=== PATIENT | male | born 1940 | race Caucasian/White ===

== ENCOUNTER 2016-11-28 06:35 | Emergency (ER) | payer MEDICARE ==
[2016-11-28 07:00] LABS: Hematocrit 42.7 % (42.0-52.0); Hemoglobin 13.6 gm/dL (13.5-18.0); Mean Corpuscular Hemoglobin 27.7 pg (27-31); Mean Corpuscular Hgb Conc 31.9 g/dl (32-36); Mean Platelet Volume 10.6 fl (6.0-9.5); Neutrophil # 11.8 K/mm3 (1.3-6.0); Neutrophil % 82.4 % (42-75.0); Platelet Count 196 K/mm3 (150-450); Red Blood Count 4.91 M/mm3 (4.7-6.0); White Blood Count 14.4 K/mm3 (4.0-10.5)
--- NOTE | 2016-11-28 07:00 | ERNOTE ---
<Edwar Escamilla - Last Filed: 11/28/16 07:53> Abdominal HPI - General Time Seen by Provider: 11/28/16 06:44 Source: patient Exam Limitations: no limitations - Immun/Allergies/Home Medications Allergies/Adverse Reactions: Allergies heparin Adverse Reaction (Verified 11/28/16 06:56) Home Medications: HOME MEDICATIONS Apixaban [Eliquis] 5 mg PO BID 07/08/15 [Last Taken Unknown] Atorvastatin Calcium 40 mg PO HS 07/08/15 [Last Taken Unknown] Escitalopram Oxalate [Lexapro] 10 mg PO DAILY 07/08/15 [Last Taken Unknown] Finasteride [Proscar] 5 mg PO DAILY 07/08/15 [Last Taken Unknown] Furosemide [Lasix] 40 mg PO BID 07/08/15 [Last Taken Unknown] Gabapentin [Neurontin] 300 mg PO BID 07/08/15 [Last Taken Unknown] Insulin Aspart [Novolog] See Protocol SQ TID PRN 07/08/15 [Last Taken Unknown] Insulin Glargine,Hum.rec.anlog [Lantus] 8 units SC DAILY 07/08/15 [Last Taken Unknown] Melatonin 2 mg PO HS 07/08/15 [Last Taken Unknown] Metoprolol Succinate [Toprol Xl] 400 mg PO DAILY 07/08/15 [Last Taken Unknown] Multivit-Min/FA/Lycopene/Lut [Centrum Silver Tablet] 1 each PO DAILY 07/08/15 [ Last Taken Unknown] Omeprazole [Prilosec] 20 mg PO DAILY 07/08/15 [Last Taken Unknown] Polyethylene Glycol 3350 [Miralax] 17 gm PO DAILY 07/08/15 [Last Taken Unknown] Potassium Chloride [K-Tab ER] 10 meq PO BID 07/08/15 [Last Taken Unknown] Tamsulosin HCl [Flomax] 0.4 mg PO DAILY@1800 07/08/15 [Last Taken Unknown] Ferrous Sulfate 325 mg PO DAILY 11/28/16 [Last Taken Unknown] Fluticasone/Vilanterol [Breo Ellipta 200-25 Mcg INH] 1 each IH DAILY 11/28/16 [ Last Taken Unknown] traMADol HCL [Ultram] 50 mg PO QID PRN #20 tablet 11/28/16 [Last Taken Unknown] - History of Present Illness Narrative: Pt states he began to have abdominal discomfort last night while eating dinner. At 02:30 he was awakened with chills and increasing abdominal discomfort. He took tylenol and was somewhat improved. Staff at the [facility] states he had temp of 101.7 at 05:45 and was given tylenol again. Pt reports nausea without vomiting. Believes he is somewhat better right now Timing: unsure Quality: moderate Activities at Onset: other - eating Modifying Factors - (Improves): Present: analgesics Associated Symptoms: Present: fever/chills, nausea Review of Systems - Review of Systems Constitutional: Present: See HPI, fever, chills EYE: Present: no symptoms reported ENT: Absent: nose congestion, sore throat Respiratory: Absent: shortness of breath, cough Cardiology: Absent: chest pain, palpitations Gastrointestinal/Abdominal: Present: See HPI. Absent: diarrhea, constipation Genitourinary: Present: no symptoms reported Musculoskeletal: Present: no symptoms reported Skin: Present: no symptoms reported Neurological: Present: no symptoms reported Endocrine: Present: no symptoms reported Hematologic/Lymphatic: Present: no symptoms reported Psych: Present: no symptoms reported - Patient's Past Medical History Patient History - Medical: Diabetes Type 2 Insulin Dependent Patient History - Cardiac/Respiratory: Hypertension, Hyperlipidemia, Myocardial Infarction Patient History - Cancer: Prostate Patient History - Surgical Procedures: Amputation, T & A Patient History - Other: None - Family History Mother Family History - Medical: Father Family History - Medical: - Social History Living Situations: care home Abuse History: No History of abuse Psych History: No pertinent hx Alcohol Use: none Drug Use: none Physical Exam - Physical Exam General Appearance: Present: wd/wn, alert, no apparent distress Eye Exam: Normal inspection: bilateral Ears, Nose, Throat: Present: normal ENT inspection Neck: Present: normal inspection, nontender Respiratory: Present: no respiratory distress, normal breath sounds, no accessory muscle use, chest nontender, lungs clear Cardiovascular/Chest: Present: regular rate, rhythm, no murmur Gastrointestinal/Abdominal: Present: normal bowel sounds, nondistended, soft, tenderness - mild diffuse Extremity Exam: Present: other - 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 Some dry crusted areas on the fore edge of the foot Neurological Exam: Present: alert, oriented, normal mood/affect, no motor/ sensory deficits Skin Exam: Present: normal color, warm/dry Lymphatic Exam: Present: no adenopathy ED Progress - Results and Orders Patient's Lab Results:: I have reviewed the patient's lab results. Results and Orders: Laboratory Tests 11/28/16 11/28/16 06:55 06:55 WBC 14.4 H Hgb 13.6 Hct 42.7 Plt Count 196 Neutrophils % 82.4 H Sodium 142 Potassium 3.7 Chloride 103 Carbon Dioxide 30.4 Anion Gap 12.3 BUN 12 Creatinine 0.84 Est GFR (Non-Af Amer) 94 D Random Glucose 129 H Calcium 8.9 Calcium Adj for Albumin 9.3 Total Bilirubin 1.6 H AST 13 ALT 14 L Alkaline Phosphatase 65 Total Protein 7.5 Albumin 3.1 L - Transfer of Care Physician Sign Out: Edwar Escamilla Receiving Physician: Ashutosh Peck Pending Results: CT/MRI results Expected Disposition: Discharge Departure - Departure Clinical Impression: Cholecystitis Abdominal pain Qualifiers: Abdominal location: right upper quadrant Qualified Code(s): R10.11 - Right upper quadrant pain Cholelithiasis Qualifiers: Cholelithiasis location: gallbladder Cholecystitis presence: with cholecystitis Cholecystitis acuity: acute Biliary obstruction: without biliary obstruction Qualified Code(s): K80.00 - Calculus of gallbladder with acute cholecystitis without obstruction Disposition: [facility] Instructions: Cholecystitis, [id number], Cholelithiasis Prescriptions: traMADol HCL [Ultram] 50 mg PO QID PRN #20 tablet PRN Reason: Moderate Pain <Ashutosh Peck - Last Filed: 11/28/16 10:37> Abdominal HPI - Immun/Allergies/Home Medications Immunizatons: IMMUNIZATION HX Immunizations Up to Date Yes History of Influenza Vaccine Yes Hx Pneumococcal Vaccination Yes ED Progress - Vital Signs Patient's Vital Signs:: I have reviewed the patient's vital signs. Vital Signs: Vital Signs 11/28/16 11/28/16 11/28/16 06:40 07:14 07:24 Temperature 37.8 C H 37.4 C Pulse Rate 86 87 Respiratory 16 16 Rate Blood Pressure 154/64 111/65 O2 Sat by Pulse 96 Oximetry 11/28/16 11/28/16 11/28/16 07:55 08:23 08:57 Temperature 37.4 C 37.0 C Pulse Rate 83 86 79 Respiratory 16 16 16 Rate Blood Pressure 101/53 100/47 102/49 O2 Sat by Pulse 96 96 97 Oximetry 11/28/16 09:58 Temperature Pulse Rate 75 Respiratory 16 Rate Blood Pressure 115/55 O2 Sat by Pulse 97 Oximetry - Progress/Reassessment Progress:: Improved Plan - Plan Plan: Patient is currently pain-free while in the emergency department. Upon reviewing the CT scan and the presence of Cholelithiasis with possible cholecystitis, I spoke with Dr. Regan in regarding this patient. Dr. Regan and agrees that this is a very complex patient would require require a lot of preop screening and testing prior to even considering a cholecystectomy here at [facility]. Dr. Regan and recommends that patient be referred back to Dr. Elias Haider for further evaluation and treatment at the appropriate place and appropriate time for possible surgery. Further discussed the case with Dr. Elias Haider and he is going to see the patient tomorrow at care home rounds and determine if anything further needs to be done. Patient is amenable to this approach and will be returned to the care home with adequate pain medicines while while is here should have another attack.
[2016-11-28] MEDS ORDERED: DIATRIZOATE MEGLU/DIATRIZO SOD 30 ML BTL ONE (07:06)
[2016-11-28] MEDS ORDERED: DIATRIZOATE MEGLU/DIATRIZO SOD 30 ML BTL PO ONE (07:12)
[2016-11-28 07:14] LABS: Albumin * 3.1 gm/dl (3.4-5.0); Anion Gap 12.3 mmol/L (6.8-13.8); BUN/Creatinine Ratio 14.3 (9.0-21.6); Bilirubin, Total 1.6 mg/dL (0.0-1.1); Ca. Corrected For Albumin 9.3 mg/dL (8.4-10.2); Calcium * 8.9 mg/dL (7.9-10.9); Carbon Dioxide 30.4 mmol/L (24-32.6); Potassium 3.7 mmol/L (3.4-4.6); Total Protein 7.5 gm/dL (6.2-8.2)
--- OUTSIDE RECORDS SUMMARY | 2016-11-28 07:35 | XMS REPORT | Continuity of Care Document ---
:1940 Author Organization [employer] [place] [address] Care Team Providers Name Role Phone Prashanth Acharya Primary Care Provider [phone] Source Comments This disclosure is being made pursuant to the [employer] program and maynot contain all information available regarding this patient.[employer] Active Allergies and Adverse Reactions Allergen Noted Date Severity Reactions Comments Adhesive Tape 01/15/2015 Low Rash [place] 01/14/15 Heparin 01/15/2015 Other (See Comments) [place] 01/14/15 "killed small arteries" Current Medications Be aware that medications may not be up to date as of this document. Alwaysverify current medications with the patient. Prescription Sig. Disp. Refills Start Date End Date Status HYDROcodone-acetaminoph Take 1 tablet by Active en (NORCO) 7.5-325 MG mouth every 4 (four) per tablet hours as needed for Pain. Indications: Moderate to Moderately Severe Pain aspirin 81 MG EC tablet Take 81 mg by mouth Active daily. atorvastatin (LIPITOR) Take 40 mg by mouth Active 40 MG tablet nightly. finasteride (PROSCAR) 5 Take 5 mg by mouth Active MG tablet daily. gabapentin (NEURONTIN) Take 600 mg by mouth Active 300 MG capsule 3 (three) times daily. insulin glargine Inject 80 Units into Active (LANTUS SOLOSTAR) 100 the skin nightly. UNIT/ML SOPN injection - pen metoprolol succinate Take 50 mg by mouth Active (TOPROL-XL) 50 MG 24 hr daily. tablet omeprazole 20 MG tablet Take 20 mg by mouth Active every morning before breakfast. oxyCODONE (ROXICODONE) Take 5 mg by mouth Active 5 MG immediate release every 6 (six) hours tablet as needed for Pain. potassium chloride SA Take 40 mEq by mouth Active (K-DUR,KLOR-CON) 20 MEQ 2 (two) times daily. tablet tamsulosin HCl (FLOMAX) Take 0.4 mg by mouth Active 0.4 MG capsule daily. warfarin (COUMADIN) 5 Take 7.5 mg by mouth Active MG tablet daily. 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 Most Recent Encounters Date Type Specialty Providers Description 09/07/2016 Data Import Social History Tobacco Use Types Packs/Day Years Used Date Former Smoker Smokeless Tobacco: Never Used Alcohol Use Drinks/Week oz/Week Comments No Last Filed Vital Signs Vital Sign Reading Time Taken Blood Pressure 134/76 03/23/2015 1:58 PM CDT Pulse 100 03/23/2015 1:58 PM CDT Temperature - - Respiratory Rate 20 03/23/2015 1:58 PM CDT Height 1.803 m (5' 11") 03/23/2015 1:58 PM CDT Weight 108.863 kg (240 lb) 03/23/2015 1:58 PM CDT Body Mass Index 33.49 03/23/2015 1:58 PM CDT Oxygen Saturation - - Plan of Care Health Maintenance Due Date Last Done Comments Lab-Lipids 1940 LAB-HgA1C 1944 Eye (Ophthalmology) Exam 1949 Foot Exam 1949 Lab-Urine Microalbumin 1949 Tetanus/Pertussis (1 - Tdap) 1958 Well Adult Visit 1989 Zoster Vaccine 60+ 1999 Pneumococcal Low/Medium Risk 65+ (1 of 2 - PCV13) 2004 Influenza Immunization (#1) 2016 Results from Last 3 Months Not on file
[2016-11-28 10:43] VITALS: BP 115/55
== END 2016-11-28 12:14 ==
LOC: ER 06:35
DX: K80.00 Calculus of gallbladder with acute cholecystitis without obstruction (principal); R10.11 Right upper quadrant pain; Z85.46 Personal history of malignant neoplasm of prostate; I10 Essential (primary) hypertension; E11.9 Type 2 diabetes mellitus without complications; Z79.4 Long term (current) use of insulin

== ENCOUNTER 2016-11-30 21:26 | Emergency (ER) | payer MEDICARE ==
[2016-11-30 21:45] LABS: Hematocrit 42.3 % (42.0-52.0); Hemoglobin 13.6 gm/dL (13.5-18.0); Mean Cell Volume 85.8 fl (78-100); Mean Corpuscular Hemoglobin 27.6 pg (27-31); Mean Corpuscular Hgb Conc 32.2 g/dl (32-36); Mean Platelet Volume 10.1 fl (6.0-9.5); Neutrophil # 9.7 K/mm3 (1.3-6.0); Neutrophil % 81.5 % (42-75.0); Platelet Count 190 K/mm3 (150-450); Red Blood Count 4.93 M/mm3 (4.7-6.0); Red Cell Distribution Width 17.1 % (11.5-14.0); White Blood Count 11.9 K/mm3 (4.0-10.5)
--- OUTSIDE RECORDS SUMMARY | 2016-11-30 21:45 | XMS REPORT | Continuity of Care Document ---
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
[2016-11-30 22:00] LABS: Albumin * 2.9 gm/dl (3.4-5.0); Anion Gap 12.4 mmol/L (6.8-13.8); BUN/Creatinine Ratio 19.7 (9.0-21.6); Bilirubin, Total 3.6 mg/dL (0.0-1.1); Ca. Corrected For Albumin 9.1 mg/dL (8.4-10.2); Calcium * 8.5 mg/dL (7.9-10.9); Carbon Dioxide 27.6 mmol/L (24-32.6); Total Protein 7.7 gm/dL (6.2-8.2)
[2016-12-01] MEDS ORDERED: metroNIDAZOLE/SODIUM CHLORIDE 500 MG/100 ML BAG IV SCH (00:15)
[2016-12-01 01:25] LABS: Urine Appearance Slightly Cloudy; Urine Bilirubin 3 mg/dl (NEGATIVE); Urine Blood Negative /ul (NEGATIVE); Urine Color Orange; Urine Ketone 5 mg/dL (NEGATIVE); Urine Protein 15 mg/dL (NEGATIVE); Urine Urobilinogen >=8.0 EU/dl (NORMAL); Urine pH 6.5 pH (5.0-7.0)
[2016-12-01 01:26] LABS: Urine Bacteria 1+; Urine Mucus Moderate - 2+; Urine Nitrite Negative (NEGATIVE); Urine RBC None Seen /hpf (0-5); Urine Renal Epithelial Cell Few - 1+ /hpf; Urine WBC TRACE /hpf (0-5)
[2016-12-01] MEDS ORDERED: HYDROmorphone HCL 1 MG/ML DISP.SYRIN IV ONE (01:58)
[2016-12-01] MEDS ORDERED: ONDANSETRON HCL/PF 2 MG/ML VIAL ONE (02:00)
[2016-12-01] MEDS ORDERED: HYDROmorphone HCL 1 MG/ML DISP.SYRIN ONE (02:00)
--- NOTE | 2016-12-01 02:00 | ERNOTE ---
Abdominal HPI - Narrative Date of Service: 11/30/16 - General Chief Complaint: Abdominal Pain Time Seen by Provider: 11/30/16 21:28 Source: patient Exam Limitations: no limitations - Immun/Allergies/Home Medications Immunizatons: IMMUNIZATION HX Immunizations Up to Date Yes History of Influenza Vaccine Yes Hx Pneumococcal Vaccination Yes Allergies/Adverse Reactions: Allergies heparin Adverse Reaction (Verified 11/28/16 06:56) Home Medications: HOME MEDICATIONS Apixaban [Eliquis] 5 mg PO BID 07/08/15 [Last Taken Unknown] Atorvastatin Calcium 40 mg PO HS 07/08/15 [Last Taken Unknown] Escitalopram Oxalate [Lexapro] 10 mg PO DAILY 07/08/15 [Last Taken Unknown] Finasteride [Proscar] 5 mg PO DAILY 07/08/15 [Last Taken Unknown] Furosemide [Lasix] 40 mg PO BID 07/08/15 [Last Taken Unknown] Gabapentin [Neurontin] 300 mg PO BID 07/08/15 [Last Taken Unknown] Insulin Aspart [Novolog] See Protocol SQ TID PRN 07/08/15 [Last Taken Unknown] Insulin Glargine,Hum.rec.anlog [Lantus] 8 units SC DAILY 07/08/15 [Last Taken Unknown] Melatonin 2 mg PO HS 07/08/15 [Last Taken Unknown] Metoprolol Succinate [Toprol Xl] 400 mg PO DAILY 07/08/15 [Last Taken Unknown] Multivit-Min/FA/Lycopene/Lut [Centrum Silver Tablet] 1 each PO DAILY 07/08/15 [ Last Taken Unknown] Omeprazole [Prilosec] 20 mg PO DAILY 07/08/15 [Last Taken Unknown] Polyethylene Glycol 3350 [Miralax] 17 gm PO DAILY 07/08/15 [Last Taken Unknown] Potassium Chloride [K-Tab ER] 10 meq PO BID 07/08/15 [Last Taken Unknown] Tamsulosin HCl [Flomax] 0.4 mg PO DAILY@1800 07/08/15 [Last Taken Unknown] Ferrous Sulfate 325 mg PO DAILY 11/28/16 [Last Taken Unknown] Fluticasone/Vilanterol [Breo Ellipta 200-25 Mcg INH] 1 each IH DAILY 11/28/16 [ Last Taken Unknown] traMADol HCL [Ultram] 50 mg PO QID PRN #20 tablet 03/07/17 [Last Taken Unknown] - History of Present Illness Narrative: Pt is a [facility] of a [facility] and he is brought in by EMS for right upper quadrant abdominal pain. he was here two days ago and was discharged back to the [facility] but is back because he states his right side hurts. He does have cholelithiasis Timing: getting worse Review of Systems - Review of Systems Constitutional: Present: no symptoms reported EYE: Present: no symptoms reported ENT: Present: no symptoms reported Respiratory: Present: no symptoms reported Cardiology: Present: no symptoms reported Gastrointestinal/Abdominal: Present: See HPI Genitourinary: Present: no symptoms reported Musculoskeletal: Present: no symptoms reported Skin: Present: no symptoms reported - Patient's Past Medical History Patient History - Medical: Diabetes Type 2 Insulin Dependent Patient History - Cardiac/Respiratory: Hypertension, Hyperlipidemia, Myocardial Infarction Patient History - Cancer: Prostate Patient History - Surgical Procedures: Amputation, T & A Patient History - Other: None - Family History Mother Family History - Medical: Father Family History - Medical: - Social History [facility] Situations: [facility] Abuse History: No History of abuse Psych History: No pertinent hx Smoking Status: Never smoker Have you smoked in the past 12 months: No Alcohol Use: none Drug Use: none - Immunizations Immunizations Up to Date: Yes Hx Pneumococcal Vaccination: Yes History of Influenza Vaccine: Yes Physical Exam - Physical Exam General Appearance: Present: wd/wn, alert, no apparent distress - by the time I saw pt he had already been given Fentanyl 75mcg IV by EMS, other - pt does appear mildly icteric Ears, Nose, Throat: Present: normal ENT inspection Neck: Present: normal inspection, nontender Respiratory: Present: no respiratory distress, normal breath sounds Cardiovascular/Chest: Present: no murmur, normal peripheral pulses, irregularly irregular, other Extremity Exam: Present: other - BKA on right side Neurological Exam: Present: alert, normal mood/affect, no motor/sensory deficits Skin Exam: Present: normal color, warm/dry ED Progress - Results and Orders Patient's Lab Results:: I have reviewed the patient's lab results. - Vital Signs Patient's Vital Signs:: I have reviewed the patient's vital signs. Vital Signs: Vital Signs 11/30/16 11/30/16 11/30/16 21:26 21:35 22:05 Temperature 35.7 C L Pulse Rate 88 82 81 Respiratory 16 16 18 Rate Blood Pressure 120/69 120/69 127/74 O2 Sat by Pulse 92 89 L 94 Oximetry 11/30/16 11/30/16 22:35 23:57 Temperature 38.4 C H Pulse Rate 73 78 Respiratory 18 18 Rate Blood Pressure 94/51 112/85 O2 Sat by Pulse 94 93 Oximetry - Progress/Reassessment Chief Complaint: Abdominal Pain Plan - Plan Plan: pt's Bili is elevated at 3.6, his pain in RUQ was initially gone due to Fentanyl 75mcg received in Ambulance, returned and was better with 1mg of Dilaudid. I contacted [facility] and they stated that they do not do ERCP if the pt should need it. I then contacted [facility] in [place] and was told by the data warehouse consultant that " we don't do ERCP's here" . At this time, [facility] was called and Dr. Mendez graciously accepted our patient to their facility for better care. Departure - Departure Clinical Impression: Jaundice Disposition: [facility] Condition: Fair
[2016-12-01] MEDS ORDERED: ONDANSETRON HCL/PF 2 MG/ML VIAL IV ONE (02:01)
[2016-12-01 03:15] LABS: BNP * 2228 pg/mL (5-650); CKMB 0.6 ng/mL (0.0-9.0)
[2016-12-01 03:24] LABS: Troponin I Less than 0.017 ng/ml (0.00-0.10)
[2016-12-01 05:34] VITALS: BP 123/77
== END 2016-12-01 05:40 | disposition short-term general hospital (02) ==
LOC: ER 21:26 → MS 12-01 00:15 → UNDOADMOB 12-01 00:15 → ER 12-01 05:40
DX: R17 Unspecified jaundice (principal); E11.9 Type 2 diabetes mellitus without complications; Z79.4 Long term (current) use of insulin; I10 Essential (primary) hypertension; Z79.01 Long term (current) use of anticoagulants; Z85.46 Personal history of malignant neoplasm of prostate

== ENCOUNTER 2017-02-02 12:54 | Emergency (ER) | payer OTHER, MEDICARE ==
--- NOTE | 2017-02-02 13:43 | ERNOTE ---
Abdominal HPI - Narrative Date of Service: 02/02/17 - General Chief Complaint: Abdominal Pain Time Seen by Provider: 02/02/17 13:39 Source: patient - Immun/Allergies/Home Medications Immunizatons: IMMUNIZATION HX Immunizations Up to Date Yes History of Influenza Vaccine Yes Hx Pneumococcal Vaccination Yes Allergies/Adverse Reactions: Allergies heparin Adverse Reaction (Verified 02/02/17 13:05) Home Medications: HOME MEDICATIONS Apixaban [Eliquis] 5 mg PO BID 07/08/15 [Last Taken Unknown] Atorvastatin Calcium 40 mg PO HS 07/08/15 [Last Taken Unknown] Escitalopram Oxalate [Lexapro] 10 mg PO DAILY 07/08/15 [Last Taken Unknown] Finasteride [Proscar] 5 mg PO DAILY 07/08/15 [Last Taken Unknown] Furosemide [Lasix] 60 mg PO BID 07/08/15 [Last Taken Unknown] Gabapentin [Neurontin] 300 mg PO BID 07/08/15 [Last Taken Unknown] Insulin Glargine,Hum.rec.anlog [Lantus] 8 units SC DAILY 07/08/15 [Last Taken Unknown] Melatonin 2 mg PO HS 07/08/15 [Last Taken Unknown] Metoprolol Succinate [Toprol Xl] 400 mg PO DAILY 07/08/15 [Last Taken Unknown] Multivit-Min/FA/Lycopen/Lutein [Centrum Silver Tablet] 1 each PO DAILY 07/08/15 [Last Taken Unknown] Omeprazole [Prilosec] 20 mg PO DAILY 07/08/15 [Last Taken Unknown] Tamsulosin HCl [Flomax] 0.4 mg PO DAILY@1800 07/08/15 [Last Taken Unknown] Ferrous Sulfate 325 mg PO DAILY 11/28/16 [Last Taken Unknown] Fluticasone/Vilanterol [Breo Ellipta 200-25 Mcg INH] 1 each IH DAILY 11/28/16 [ Last Taken Unknown] Aspirin 81 mg PO DAILY 02/02/17 [Last Taken Unknown] Cephalexin Monohydrate [Keflex] 500 mg PO Q8H #30 capsule 02/02/17 [Last Taken Unknown] Fluconazole [Diflucan] 100 mg PO DAILY 02/02/17 [Last Taken Unknown] HYDROcodone/ACETAMINOPHEN [[place] 5-325] 1 tab PO Q6H PRN 02/02/17 [Last Taken Unknown] Lisinopril [Zestril] 2.5 mg PO DAILY 02/02/17 [Last Taken Unknown] Mupirocin 1 gm TP QID 02/02/17 [Last Taken Unknown] Olopatadine HCl 1 drop OP BID 02/02/17 [Last Taken Unknown] Rifampin [Rifadin] 600 mg PO DAILY 02/02/17 [Last Taken Unknown] Spironolactone [Aldactone] 25 mg PO DAILY 02/02/17 [Last Taken Unknown] Tiotropium [place] [Spiriva] 1 cap IH DAILY 02/02/17 [Last Taken Unknown] - History of Present Illness Narrative: ABDOMINAL PAIN FOR 6 WEEKS SINCE HE HAS HAD A GALLBLADDER DRAINAGE TUBE PLACED. HE THINKS HE HAS BEEN HAVING MORE PROBLEM IN THE PAST TWO WEEKS BUT WITH LOWER ABDOMINAL PAIN. HE SAYS HE HAS NAUSEA AFTER EATING BUT NO VOMITING OR DIARRHEA. HE IS NOT SURE WHY HE HAS THE DRAIN TUBE EXCEPT HE KNOWS HE HAD GALL STONES AND THINKS THEY DID THAT BECAUSE HE COULD NOT HAVE SURGERY. THAT PROCEDURE WAS DONE AND IS FOLLOWED THRU THE [facility]. HE SAYS HE WAS JUST THERE ABOUT 10 DAYS AGO AND THINKS THEY PLAN TO SEE HIM BACK FOR CHOLECYSTECTOMY BUT HE HAS NO IDEA WHEN. HE HAS NOT NOTICED ANY YELLOW EYES OR DARKER URINE AND THE TUBE HAS BEEN DRAINING WELL. NO KNOW FEVER . HE IS NOT AWARE OF ANY RECENT MEDICATION CHANGES. Review of Systems - Review of Systems Constitutional: Present: See HPI Gastrointestinal/Abdominal: Present: nausea, abdominal pain. Absent: vomiting, diarrhea, constipation, eating less Genitourinary: Present: no symptoms reported Skin: Present: no symptoms reported Neurological: Present: no symptoms reported Endocrine: Present: no symptoms reported Hematologic/Lymphatic: Present: no symptoms reported Psych: Present: no symptoms reported All Other Systems: All systems neg except as marked - Patient's Past Medical History Patient History - Medical: Diabetes Type 2 Insulin Dependent, Other - CHOLELITHIASIS Patient History - Cardiac/Respiratory: Atrial Fibrillation, Hypertension, Hyperlipidemia, Myocardial Infarction Patient History - Cancer: Prostate Patient History - Surgical Procedures: Amputation, Coronary Bypass Surgery, T & A Patient History - Other: None - Family History Mother Family History - Medical: Father Family History - Medical: - Social History Living Situations: alf Abuse History: No History of abuse Psych History: No pertinent hx Smoking Status: Former smoker Alcohol Use: none Drug Use: none - Immunizations Immunizations Up to Date: Yes Hx Pneumococcal Vaccination: Yes History of Influenza Vaccine: Yes Physical Exam - Physical Exam General Appearance: Present: wd/wn, alert, no apparent distress - OBESE ELDERLY MAN. A & O & NAD. Eye Exam: Normal inspection: bilateral, PERRL: bilateral, EOMI: bilateral Respiratory: Present: no respiratory distress, normal breath sounds, no accessory muscle use, chest nontender, lungs clear Cardiovascular/Chest: Present: regular rate, rhythm, no murmur, normal peripheral pulses Gastrointestinal/Abdominal: Present: normal bowel sounds, no organomegaly, tenderness - LOWER ABDOMINAL MILD SUPRAPUBIC TENDERNESS WITH NO REBOUND OR GUARDING. HE HAS A VERY OBESE , DISTENDED ABDOMEN THAT HE THINKS IS MORE BLOATED THAN USUAL BUT HE HAS NO UPPER ABDOMINAL TENDERNESS RIGHT NOW. THERE IS A TUBE DRAINING BILE COLORED MATERIAL FROM UPPER QUADRANT. 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 Neurological Exam: Present: alert, oriented Skin Exam: Present: normal color, warm/dry. Absent: jaundice ED Progress - Results and Orders Patient's Lab Results:: I have reviewed the patient's lab results. Results and Orders: LABS ARE NORMAL EXCEPT MILD T.BILI ELVATION OF 1.3, WHICH IS LESS THAN PRIOR VALUE IN NOVEMBER. URINE IS + NITRATE AND 4 + BACT. THERE IS A CULTURE PENDING. - Vital Signs Patient's Vital Signs:: I have reviewed the patient's vital signs. Vital Signs: Vital Signs 02/02/17 13:00 Temperature 36.8 C Pulse Rate 78 Respiratory 19 Rate Blood Pressure 101/52 O2 Sat by Pulse 93 Oximetry - CT/Ultrasound CT/Ultrasound Narrative: Patient Patient Name:ADAM LEE Date: 1940 Sex: M Order Number: [id number] Unique Exam ID: [id number] Exam Requested: ABDPELW - CT Abdomen/Pelvis W/ Contrast Date Scheduled: Study Priority: Requesting Service: Requesting Physician: John Nicole Reason for Exam: RUQ ABD PAIN WITH GALBLADDER DRAIN TUBE X 6 WEEKS. Radiological Report : Exam Date: 02/02/2017 14:05 Ordering Physician: John Nicole History: RUQ ABD PAIN WITH GALLBLADDER DRAIN TUBE X 6 WEEKS.. Additional history provided by the technologist: Right upper quadrant pain x2 weeks. Cholecystostomy drain placed 6 weeks ago. History of amputation of both legs. History of heart bypass, coronary artery disease, hypertension. Patient has insulin-dependent diabetes. History of prostate cancer. Technique: Contrast enhanced CT images of the abdomen during the portal venous phase were obtained. Excretory phase images of the abdomen and pelvis were also obtained. Coronal reconstructions are submitted. Oral contrast material was also administered. Comparison: Prior exams, most recent is CT of the abdomen and pelvis dated November 28, 2016. CT Abdomen/Pelvis W/ Contrast Findings: Lung bases: Unchanged appearance of a complex loculated pleural effusion at the right lung base with thickening and enhancement of the visceral and parietal pleura. Please refer to prior reports. There is dependent atelectasis at the lung bases. There is a left lower lung calcified granuloma. There is left atrial enlargement. Coronary artery calcifications are suggested. Unchanged appearance of a right lower lung pulmonary artery; please refer to prior CT report. ABDOMEN/PELVIS: Liver: There is hepatic steatosis. Otherwise, unremarkable. Spleen: Scattered calcified granulomas. Otherwise, unremarkable. Pancreas: Unremarkable. Gallbladder: There is a cholecystostomy tube in place and in satisfactory positioning. The gallbladder is decompressed. There are small gallstones in the region of the gallbladder neck. There is improved inflammatory change at the level the gallbladder fossa as compared to prior exam. There is a 3 mm calculus within the common bile duct at the level the valorie hepatis (series 3, image 27). There is no intra or extrahepatic biliary ductal dilatation. The common bile duct at this level measures approximately 4 mm in diameter. The distal common bile duct measures approximately 6 mm in diameter. Adrenal glands: Unremarkable. Kidneys: There is a right extrarenal pelvis. No discrete solid enhancing renal mass. No discrete cyst. Symmetric enhancement and excretion of contrast from the kidneys. No evidence of obstructive uropathy.. Normal course and caliber of the ureters. No filling defect within the opacified portions of the ureters. Bowel: The stomach is distended. There is a small duodenal diverticulum. There is redundancy of the duodenum. No evidence of bowel obstruction. Normal appendix. Moderate stool retention. Mildly redundant sigmoid colon. Pericolonic diverticulosis. No evidence of diverticulitis. Pelvic structures: Metallic seeds are noted within the prostate. Incomplete urinary bladder distention. Mild urinary bladder wall thickening is present; correlate for cystitis or sequela of bladder outlet obstruction. The pelvic structures are otherwise unremarkable. Vascular structures: Atherosclerotic changes are present throughout the normal caliber aorta and branching vessels. Vascular structures appear patent. Lymphadenopathy: No significant lymphadenopathy. There is no free fluid or fluid collections. No pneumoperitoneum. No hemoperitoneum. Osseous structures: Degenerative changes are present. Decreased osseous mineralization. Changes from median sternotomy noted. Abdominal wall: There is a small fat-containing umbilical hernia. There are bilateral fat-containing inguinal hernias. IMPRESSION: Satisfactory positioning of the cholecystostomy tube with improved inflammatory change. There is a 3 mm calculus within the common bile duct at the level of the valorie hepatis without intra or extrahepatic biliary ductal dilatation. Additional findings and comments are as above. Electronically signed by Thierry Perez D.O.. Approved by: Approval Date: 02-02-2017 Approval Time: 04:20 PM THIS REPORT WAS RECEIVED FROM THE [email or web address] SYSTEM - Progress/Reassessment Chief Complaint: Abdominal Pain Plan - Plan Plan: I EXPLAINED FINDINGS TO PT AND HE WILL F/U WITH PCP AND /OR [facility] ABOUT PLAN FOR HIS GALL STONE/ GALLBLADDER PROBLEMS. Departure - Departure Clinical Impression: Abdominal pain in male Cholelithiasis Qualifiers: Cholelithiasis location: gallbladder and bile duct Cholecystitis presence: without cholecystitis Biliary obstruction: without biliary obstruction Qualified Code(s): K80.70 - Calculus of gallbladder and bile duct without cholecystitis without obstruction UTI (urinary tract infection) Qualifiers: Urinary tract infection type: site unspecified Hematuria presence: without hematuria Qualified Code(s): N39.0 - Urinary tract infection, site not specified Disposition: [facility] [place] Condition: Good Instructions: Cholelithiasis, [id number], Urinary Tract Infection, Adult, [id number], Abdominal Pain, Adult, [id number] Additional Instructions: RECHECK WITH YOUR FAMILY DOCTOR AND THE DOCTORS MANAGING YOUR GALLBLADDER PROBLEMS ABOUT YOUR STONES AND MANAGEMENT OF THE DRAINAGE TUBE BOTH OF WHICH DO SHOW ANY NEW FINDINGS. YOU DO HAVE A URINARY INFECTION WHICH IS PROBABLY RESPONSIBLE FOR YOUR LOWER ABDOMINAL PAIN. I HAVE STARTED KEFLEX FOR THAT AND THERE IS A URINE CULTURE PENDING AND THOSE RESULTS MAY LEAD TO A CHANGE IN THE MEDS. IF SO WE WILL CALL YOU. Prescriptions: Cephalexin Monohydrate [Keflex] 500 mg PO Q8H #30 capsule
--- OUTSIDE RECORDS SUMMARY | 2017-02-02 13:47 | XMS REPORT | Continuity of Care Document ---
:1940 Author Organization [place] [address] Care Team Providers Name Role Phone Prashanth Acharya Primary Care Provider [phone] Source Comments This disclosure is being made pursuant to the [employer] program and contain all information available regarding this patient.[facility] Active Allergies and Adverse Reactions Allergen Noted Date Severity Reactions Comments Adhesive Tape 01/15/2015 Low Rash [place] 01/14/15 Heparin 01/15/2015 Other (See Comments) [place] 01/14/15 "killed small arteries" Current Medications [...] Date Non-healing wound of amputation stump ([facility]) 02/22/2015 Gangrene of foot ([facility]) 12/07/2014 Social History Tobacco Use Types Packs/Day Years [...]
--- OUTSIDE RECORDS SUMMARY | 2017-02-02 13:47 | XMS REPORT | Continuity of Care Document ---
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 Disp. Refills Start End Date Status Date apixaban (ELIQUIS) Take 5 mg by mouth Active 5 mg tablet 2 times daily. atorvastatin 40 mg Take 40 mg by Active tablet mouth at bedtime. finasteride 5 mg Take 5 mg by mouth Active tablet daily. gabapentin 300 mg Take 300 mg by Active capsule mouth 2 times daily. insulin glargine Inject 8 Units Active (LanTUS) 100 subcutaneously unit/mL injection daily. vial metoPROLol Take 200 mg by Active succinate 200 mg XL mouth daily. tablet multivitamin tablet Take 1 tablet by Active mouth daily. polyethylene glycol Take 17 g by mouth Active 3350 17 gram packet daily as needed. tamsulosin 0.4 mg Take 0.4 mg by Active capsule mouth daily. ferrous sulfate 325 Take 325 mg by Active mg (65 mg iron) mouth 3 times tablet daily. fluticasone-vilante Use 1 Puff by Active rol (BREO ELLIPTA) inhalation daily. 200-25 mcg/dose inhaler escitalopram Take 5 mg by mouth Active oxalate 5 mg tablet daily. melatonin 5 mg Take 5 mg by mouth Active tablet 2 times daily. olopatadine 0.1 % Instill 1 Drop Active ophthalmic solution onto the right eye 2 times daily. tiotropium Use 18 mcg by Active (SPIRIVA) 18 mcg inhalation daily. inhalation capsule bisacodyl 10 mg Insert 10 mg Active suppository rectally daily as needed. diphenhydrAMINE 25 Take 50 mg by Active mg capsule mouth at bedtime as needed. magnesium hydroxide Take 30 mL by Active (MILK OF MAGNESIA) mouth daily as 80 mg/mL suspension needed. acetaminophen 325 Take 650 mg by Active mg tablet mouth every 4 hours as needed. insulin lispro Inject Active (HumaLOG) 100 subcutaneously 3 unit/mL injection times daily before vial meals. Sugars >150=2 units, >199=4 units, >249=6 untis, >299=8 units, >349=10 units, >399=15 units traMADol 50 mg Take 50 mg by Active tablet mouth 4 times daily as needed. albuterol 90 Use 2 Puffs by Active mcg/Actuation inhalation every 6 inhaler hours as needed. HYDROcodone-acetami Take 1 tablet by Active nophen 5-325 mg per mouth every 6 tablet hours as needed. sodium chloride 0.9 10 mL 2 times 300 mL 2 Active % injection syringe daily. Flush 7 catheter with 10 ml normal saline two times daily, push only lisinopril 2.5 mg Take 1 tablet (2.5 30 tablet 11 Active tablet mg total) by mouth 7 daily. spironolactone 25 Take 0.5 tablets 30 tablet 6 Active mg tablet (12.5 mg total) by 7 mouth daily. fluconazole 100 mg Take 100 mg by Active tablet mouth daily. furosemide 20 mg Take 20 mg by Active tablet mouth 2 times daily. guaiFENesin 600 mg Take 1,200 mg by Active XR tablet mouth 2 times daily. omeprazole 20 mg XR Take 20 mg by Active tablet mouth daily. MULTIVIT WITH Active CALCIUM,IRON,MIN (TAB A ALIA PO) furosemide 40 mg Take 40 mg by Active tablet mouth daily. Taking 1/2 tab bid furosemide 40 mg Take 40 mg by 01/09/20 Discontinued tablet mouth 2 times 17 daily. omeprazole 20 mg Take 20 mg by 01/09/20 Discontinued enteric coated mouth daily. 17 capsule potassium chloride Take 10 mEq by 01/25/20 Discontinued 10 mEq XR capsule mouth 2 times 17 daily. Active Problems Problem Noted Date Chronic heart failure 12/08/2016 Overview: Cardiology consulted, on appropriate meds and follow up scheduled Chronic atrial fibrillation 12/08/2016 Overview: xarelto held inpatient- restarted on discharge Acute cholecystitis 12/01/2016 Overview: S/p cholecystostomy tube placement Most Recent Encounters Date Type Specialty Providers Description 03/30/2017 Hospital Radiology Encounter 02/02/2017 Telephone Radiology Effie Ball, Chief Comp: Follow-up RN 01/25/2017 [facility] Internal Medicine Chichi Serna MD Encounter - Specialty 01/25/2017 Surgery Radiology Chichi Serna MD IR CHOLECYSTOTOMY TUBE CHANGE 01/24/2017 Office Visit Heart Laureen Otoole Dx: Chronic atrial Vascular S, DO fibrillation (Primary Dx) 01/19/2017 Telephone Radiology Sofie Camp, Chief Comp: Patient RN Concern 01/16/2017 Telephone Radiology Sofie Camp, RN 01/15/2017 Telephone Radiology Sofie Camp, Chief Comp: Patient RN Concern 01/15/2017 Telephone Acute Care Mei Goldman, Chief Comp: Other Surgery CARD FEEDER 01/08/2017 [facility] and Laureen Wolff Dx: Systolic heart Encounter Vascular S, DO failure, unspecified heart failure chronicity 01/08/2017 [facility] Acute Care Default, Other Dx: Acute Encounter Surgery Billg - Defo cholecystitis (Primary Shraddha Downing A, Dx) 01/05/2017 [facility] Internal Medicine Daog Portillo Encounter - Specialty MD Tevin 01/05/2017 Surgery Radiology Will Rojo MD IR CHOLECYSTOTOMY TUBE CHANGE 12/27/2016 Office Visit Laureen Barraza Dx: Systolic heart Vascular S, DO failure, unspecified heart failure chronicity (Primary Dx) 12/08/2016 Orders/Notes Radiology Bebeto Lofton, Dx: Cholecystitis PA-C (Primary Dx) 12/08/2016 Surgery Radiology Will Rojo MD IR CHOLECYSTOTOMY TUBE CHANGE 12/06/2016 Surgery Radiology Chichi Serna MD IR CHOLECYSTOTOMY TUBE PLACEMENT 12/04/2016 [facility] Heart and Jean-Pierre Stone, Chief Comp: Patient Encounter Vascular Reported Reason For Visit 12/02/2016 [facility] bharati Cr, Chief Comp: Patient Encounter Vascular Violet Garrett MD Reported Reason For Visit 12/01/2016 - [facility] General Care Perry Cruz Dx: Acute 12/08/2016 Encounter Inpatient - Adult T, DO cholecystitis (Primary Bang Cosme MD Dx) Ramon Guthrie MD Sun, Shiliang, MD Wang, Shengfu, MD Social History Tobacco Use Types Packs/Day Years Used Date Former Smoker Quit: 12/02/1979 Smokeless Tobacco: Never Used Alcohol Use Drinks/Week oz/Week Comments No Last Filed Vital Signs Vital Sign Reading Time Taken Blood Pressure 93/48 01/25/2017 3:06 PM CDT Pulse 71 01/25/2017 3:06 PM CDT Temperature 36.7 C (98.1 F) 01/25/2017 2:24 PM CDT Respiratory Rate 14 01/25/2017 2:52 PM CDT Height 1.803 m (5' 11") 01/24/2017 9:19 AM CDT Weight 112.038 kg (247 lb) 01/24/2017 9:19 AM CDT Body Mass Index 34.46 01/24/2017 9:19 AM CDT Oxygen Saturation 93% 01/25/2017 3:06 PM CDT Plan of Care Date Type Specialty Providers Description 03/30/2017 Surgery Radiology Radiologist, Rad IR CHOLECYSTOTOMY TUBE Invasive CHANGE [address] [place] [address] [phone] (Fax) 05/02/2017 Appointment Heart and Vascular Laureen Wolff Chief Comp: Patient S, DO Reported Reason For [address] [place] [address] [phone] (Fax) Health Maintenance Due Date Last Done Comments Hepatitis B Vaccine (1 of 3 - Primary Series) 1940 Tdap Vaccine 1951 DIABETIC: Hemoglobin A1C 1957 DIABETIC: Microalbumin 1958 Td Vaccine 1958 Colonoscopy 08/19/1989 Zoster Vaccine 1999 Pneumococcal Vaccine (1 of 2 - PCV13) 2004 DIABETIC: Foot Exam 12/08/2016 DIABETIC: Retinal Eye Exam 12/08/2016 Influenza Vaccine: Seasonal (Season Ended) 2017 DIABETIC: Cholesterol 12/03/2017 12/03/2016 Diabetic: Hdl 12/03/2017 12/03/2016 Diabetic: Ldl 12/03/2017 12/03/2016 DIABETIC: Triglycerides 12/03/2017 12/03/2016 Results from Last 3 Months IR CHOLECYSTOGRAM TUBE CHANGE (01/25/2017 3:07 PM)Only the most recent of3 resultswithin the time period is included. Impressions Impression: Cholecystogram showed decompressed gallbladder, patent cystic duct and CBD. Plan: 1. Patient to be discharged 2. No flushing 3. Catheter is capped. 4. Patient stated he will have surgery in 6 weeks. Patient to return to IR in 2 months for routine check and change, if no surgery. Narrative PROCEDURE: Cholecystostomy catheter sinogram INDICATIONS: Cholecystitis ACCESS:Existing cholecystostomy drainage catheter. CONTRAST: 10 ml Isovue-370 ANESTHESIA:1% local lidocaine MEDS:0 mg Versed IV, 0 mcg Fentanyl IV, 1 g Rocephin IV. PHYSICIANS: APPRENTICE EMBALMER:Dr. Araogn COMPLICATIONS:None immediate BLOOD LOSS:Minimal FLUORO TIME:0.3 min FLUORO DOSE:4 mGy Technique/Findings:The patient was identified.After the risks and benefits of the procedure were discussed with the Patient, an informed written consent was obtained.The patient was then brought back to interventional suite and placed supine on the table.A time out was performed. The existing cholecystostomy catheter was identified. A news video editor film was taken to document the location of the existing catheter. Contrast was injected through existing cholecystostomy catheter and a cholecystogram was performed. This showed decompressed gallbladder with patent cystic duct and CBD.Nondilated intrahepatic ducts. Procedure was done with fluoroscopic guidance. The patient tolerated the procedure well. There were no complications. performed the entire procedure. Dr. Serna was present for the entire procedure. Procedure Note Kenji, Incoming Imaging Results - SunJanuary 26, 2017 10:43 AM CDT PROCEDURE: Cholecystostomy catheter sinogram INDICATIONS: Cholecystitis ACCESS: Existing cholecystostomy drainage catheter. CONTRAST: 10 ml Isovue-370 ANESTHESIA: 1% local lidocaine MEDS: 0 mg Versed IV, 0 mcg Fentanyl IV, 1 g Rocephin IV. PHYSICIANS: Dr. Serna APPRENTICE EMBALMER: Dr. Aragon COMPLICATIONS: None immediate BLOOD LOSS: Minimal FLUORO TIME: 0.3 min FLUORO DOSE: 4 mGy Technique/Findings: The patient was identified. After the risks and benefits of the procedure were discussed with the Patient, an informed written consent was obtained. The patient was then brought back to interventional suite and placed supine on the table. A time out was performed. The existing cholecystostomy catheter was identified. A news video editor film was taken to document the location of the existing catheter. Contrast was injected through existing cholecystostomy catheter and a cholecystogram was performed. This showed decompressed gallbladder with patent cystic duct and CBD. Nondilated intrahepatic ducts. Procedure was done with fluoroscopic guidance. The patient tolerated the procedure well. There were no complications. Dr. Aragon performed the entire procedure. Dr. Serna was present for the entire procedure. IMPRESSION Impression: Cholecystogram showed decompressed gallbladder, patent cystic duct and CBD. Plan: 1. Patient to be discharged 2. No flushing 3. Catheter is capped. 4. Patient stated he will have surgery in 6 weeks. Patient to return to IR in 2 months for routine check and change, if no surgery. ECHO ADULT - ECHOCARDIOGRAM, TRANSTHORACIC (01/08/2017 1:52 PM)Only the most recent of2 resultswithin the time period is included. Component Value Range Interpretation Summary TRANSTHORACIC ECHOCARDIOGRAM Technically very difficult study (patient refused echo contrast). Normal left ventricular size with severely decreased systolic function. LV Ejection Fraction=20-30% (based on visual estimate). No hemodynamically significant valve disease. RV/RA peak instantaneous systolic gradient=44mmHg (pulmonary artery pressure may be predicted by adding an estimate of central pressure or RA pressure to the RV/RA gradient). The Sinus of Valsalva measures 3.8 cm. Patient Height (cm) 180.3 cm Patient Weight (kg) 112 kg Systolic Pressure (mmHg) 102 mmHg Diastolic Pressure (mmHg) 65 mmHg BSA (meters^2) 2.3 m^2 Left Ventricle (LV) Normal left ventricular size. Probably normal LV wall thickness. Severely decreased LV systolic function. LV Ejection Fraction=20-30% (based on visual estimate). Visualization of the LV is inadequate for regional wall motion analysis Right Ventricle (RV) Visualization of the RV chamber is inadequate due to poor acoustic windows Left and Right Atria (LA, RA) LA chamber size: probably enlarged Probably enlarged right atrial chamber size. Mitral Valve (MV) Probably normal mitral valve leaflet morphology Trace mitral regurgitation by color Doppler. Tricuspid Valve (TV) Probably normal tricuspid valve morphology Trace Tricuspid regurgitation RV/RA peak instantaneous systolic gradient=44mmHg (spectral Doppler). Pulmonary artery pressure may be predicted by adding an estimate of central pressure or RA pressure to the RV/RA gradient. Aortic Valve (AoV) The aortic valve structure is probably trileaflet - not all coronary cusps are visualized. Mildly calcified aortic valve leaflets No aortic regurgitation by color Doppler. No hemodynamically significant valvular aortic stenosis by spectral doppler. Pulmonic Valve (PV) Pulmonic valve is not visualized Trace pulmonic valve insufficiency by doppler. Aorta and Pulmonary Artery (Ao, PA) The Sinus of Valsalva measures 3.8cm Pericardium/Pleura There is no pericardial effusion. Procedures Complete 2D with Doppler, Color Flow and image documentation ( [id number]) I personally viewed the echocardiogram and approve the above interpretation Inf. Vena Cava (IVC) / Pulm. Veins IVC not visualized Technical Comments Unable to move patient - Imaging performed in supine position TDS. Pt refused to get Definty Primary ICD-9 Code Systolic heart failure, chronic (428.22) Ao root diam 3.8 cm Ao root area 11.3 cm^2 LVOT diam 2.0 cm LVOT area 3.2 cm^2 LVAd ap4 38.1 cm^2 EF(MOD-sp4) 41.5 % MV E max shahbaz 71.6 cm/sec MV A max shahbaz 34.6 cm/sec MV E/A 2.1 MV dec time 0.16 sec MR max shahbaz 457.8 cm/sec MR max PG 83.8 mmHg TR Max shahbaz 328.5 cm/sec Low Range of LVEF 20 High Range of LVEF 30 Reason For Study CMP/failure Level Vial Inspector And Tester Shell Zayas Interpreting Physician Masoud Velez MD electronically signed on 2017-01-08 15:00:14.493 BLOOD GLUCOSE, BEDSIDE (12/08/2016 11:58 AM)Only the most recent of2 resultswithin the time period is included. Component Value Range Glucose, Accu-Chek 218(H) 65-99 mg/dL Specimen Blood, capillary PHOSPHORUS (12/08/2016 6:10 AM)Only the most recent of8 resultswithin the time period is included. Component Value Range Phosphorus 2.8Comment:New reference range installed 07/06/15. 2.5-4.5 mg/dL Specimen Blood MAGNESIUM (12/08/2016 6:10 AM)Only the most recent of8 resultswithin the time period is included. Component Value Range Magnesium 2.0 1.5-2.9 mg/dL Specimen Blood HEPATIC FUNCTION PANEL (12/08/2016 6:10 AM)Only the most recent of8 resultswithin the time period is included. Component Value Range Albumin 2.8(L) 3.4-4.8 g/dL ALP 85 40-129 U/L Bilirubin Total 0.9 <=1.2 mg/dL Bilirubin, Direct 0.4(H) 0.0-0.2 mg/dL AST 30Comment: 0-40 U/L Adult reference ranges updated on 08/19/13 at 830am ALT 18Comment: 0-41 U/L The upper limit of normal for alanine aminotransferase (ALT) reference ranges for adults is controversial with some authorities recommending limit as low as 30 U/L for males and 19 U/L for females. Th ere is increased incidence of subclinical liver disease (e.g., early steatohepatitis) in patients with ALT values in the range of 31-41 U/L for males and 20-33 U/L for females. ALT values should alway s be interpreted in conjunction with clinical history, physical examination findings, and, if applicable, data from other diagnostic tests. Total Protein 7.2 6.0-8.0 g/dL Specimen Blood CBC (COMPLETE BLOOD COUNT) (12/08/2016 6:10 AM)Only the most recent of7 resultswithin the time period is included. Component Value Range WBC Count 12.8(H) 3.7-10.5 K/MM3 RBC Count 5.07 4.50-6.20 M/MM3 Hemoglobin 13.7 13.2-17.7 g/dL Hematocrit 43 40-52 % MCV (Mean Corpuscular Volume) 85 82-99 FL MCH (Mean Corpuscular Hemoglobin) 27 25-35 PG MCHC (Mean Corpuscular Hemoglobin Concentration) 32 32-36 % Platelet Count 257 150-400 K/MM3 MPV (Mean Platelet Volume) 9.9 9.4-12.3 FL RBC Dist Width-STD 52.1(H) 35.1-43.9 FL RBC Distrib Width 16.9(H) 9.0-14.5 % Nucleated RBC 0 /100 WBC Specimen Whole Blood BASIC METABOLIC PANEL W/ CALCIUM (CHEM 8) (12/08/2016 6:10 AM)Only the most recent of8 resultswithin the time period is included. Component Value Range Sodium 138 135-145 mEq/L Potassium 4.2 3.5-5.0 mEq/L Chloride 99 95-107 mEq/L CO2 29 22-29 mEq/L Anion Gap 10 8-18 mEq/L BUN 10 10-20 mg/dL Creatinine 0.5(L)Comment: 0.6-1.2 mg/dL Creatinine switched to enzymatic method on 01/31/2011.GFR equation switched to IDMS-traceable MDRD equation on 01/31/2011. Calculated GFR values are not valid in clinical settings where serum creatinine is changing. Glucose 162(H)Comment: 65-99 mg/dL The Expert Committee on the Diagnosis and Classification of Diabetes has defined impaired fasting glucose as greater than or equal to 100 mg/dL but less than 126 mg/dL.(Diabetes Care 28 (Suppl 1)S41,2005) Calcium 8.9 8.5-10.5 mg/dL Calculated GFR >90 >60 mL/min/1.73 m2 Specimen Blood IR CHOLECYSTOSTOMY TUBE PLACEMENT (12/06/2016 1:47 PM) Impressions IMPRESSION: 1. Successful placement of a 8 Slovenian, 35 cm locking pigtail catheter in the gallbladder. 2. 10 ml of aspirated bile has been sent for microbiological investigations. 3. Catheter to gravity drainage PLAN: 1. Patient to return to floor. Monitor outputs. 2. Cholecystogram will be performed after 48 hours. 3. Flush with 10 cc normal saline twice a day. Narrative PROCEDURE: Cholecystostomy catheter placement INDICATIONS: Cholecystitis ACCESS: Right upper abdomen SPECIMENS COLLECTED: 10 ml of aspirated bile CONTRAST:5 ml Isovue 370 intrabiliary ANESTHESIA: 1% lidocaine MEDS:1.5 mg Versed IV, 100 mcg Fentanyl IV, Patient on IV antibiotics PHYSICIANS: APPRENTICE EMBALMER:Dr. Aragon COMPLICATIONS:None immediate BLOOD LOSS:Minimal FLUORO TIME:1.8 min FLUORO DOSE:50 mGy Sedation Start Time: 12/06/2016 1:20 PM.Sedation End Time: 12/06/2016 1:41 PM PROCEDURE: Informed consent was obtained from the patient after a detailed discussion outlining the risks, benefits, and alternatives to the procedure and after all questions were answered. The patient was brought to the interventional suite and placed in the supine position. A formal timeout was performed. The patient was then prepped and draped in the normal sterile fashion. The gallbladder was localized using ultrasound. The presumed path of needle to access gallbladder was determined under ultrasound guidance. The overlying skin was anesthetized using 1% lidocaine. Under ultrasound guidance a 22-gauge, 15 cm needle was used to access gallbladder. All the further steps were performed under the fluoroscopy guidance. A Nitinol wire was advanced through the needle which was seen looping inside the gallbladder. The needle was removed and access was secured using a 5 Slovenian micropuncture catheter. The nitinol wire was replaced using an Amplatz wire which is seen looping within the gallbladder. The soft tissue tract was then dilated using 7 and 8 F dilators. A 8 Slovenian, 35 cm locking pigtail of catheter was then advanced over the Bentson wire. Bentson wire was then removed. 10 ml of bile was aspirated from the catheter and was sent for microbiological study. Contrast was injected and post procedural cholecystogram was performed documenting adequate location of catheter and to rule out any immediate complications.The pigtail catheter was locked and sutured to skin using 2-0 Prolene Procedure done under fluoroscopic guidance. Postprocedure cholecystogram: Multiple filling defects consistent with cholelithiasis. The patient tolerated the procedure well. There were no complications. Dr. Aragon performed the entire procedure. Dr. Serna was present for the whole procedure. Procedure Note Kenji, Incoming Imaging Results - SunDec 08, 2016 12:35 PM CDT PROCEDURE: Cholecystostomy catheter placement INDICATIONS: Cholecystitis ACCESS: Right upper abdomen SPECIMENS COLLECTED: 10 ml of aspirated bile CONTRAST: 5 ml Isovue 370 intrabiliary ANESTHESIA: 1% lidocaine MEDS: 1.5 mg Versed IV, 100 mcg Fentanyl IV, Patient on IV antibiotics PHYSICIANS: Dr. Serna APPRENTICE EMBALMER: Dr. Aragon COMPLICATIONS: None immediate BLOOD LOSS: Minimal FLUORO TIME: 1.8 min FLUORO DOSE: 50 mGy Sedation Start Time: 12/06/2016 1:20 PM. Sedation End Time: 12/06/2016 1:41 PM PROCEDURE: Informed consent was obtained from the patient after a detailed discussion outlining the risks, benefits, and alternatives to the procedure and after all questions were answered. The patient was brought to the interventional suite and placed in the supine position. A formal timeout was performed. The patient was then prepped and draped in the normal sterile fashion. The gallbladder was localized using ultrasound. The presumed path of needle to access gallbladder was determined under ultrasound guidance. The overlying skin was anesthetized using 1% lidocaine. Under ultrasound guidance a 22-gauge, 15 cm needle was used to access gallbladder. All the further steps were performed under the fluoroscopy guidance. A Nitinol wire was advanced through the needle which was seen looping inside the gallbladder. The needle was removed and access was secured using a 5 Slovenian micropuncture catheter. The nitinol wire was replaced using an Amplatz wire which is seen looping within the gallbladder. The soft tissue tract was then dilated using 7 and 8 F dilators. A 8 Slovenian, 35 cm locking pigtail of catheter was then advanced over the Bentson wire. Bentson wire was then removed. 10 ml of bile was aspirated from the catheter and was sent for microbiological study. Contrast was injected and post procedural cholecystogram was performed documenting adequate location of catheter and to rule out any immediate complications. The pigtail catheter was locked and sutured to skin using 2-0 Prolene Procedure done under fluoroscopic guidance. Postprocedure cholecystogram: Multiple filling defects consistent with cholelithiasis. The patient tolerated the procedure well. There were no complications. Dr. Aragon performed the entire procedure. Dr. Serna was present for the whole procedure. IMPRESSION IMPRESSION: 1. Successful placement of a 8 Slovenian, 35 cm locking pigtail catheter in the gallbladder. 2. 10 ml of aspirated bile has been sent for microbiological investigations. 3. Catheter to gravity drainage PLAN: 1. Patient to return to floor. Monitor outputs. 2. Cholecystogram will be performed after 48 hours. 3. Flush with 10 cc normal saline twice a day. ANAEROBIC CULTURE (12/06/2016 1:43 PM) Component Value Range Anaerobic culture growth No anaerobic organisms isolated Specimen Culture - Bile AEROBIC CULTURE, ROUTINE (12/06/2016 1:43 PM) Component Value Range Culture No Growth Gram Stain No organisms or PMNs observed Specimen Culture - Bile C. DIFFICILE TOXIN SCREEN (12/06/2016 10:14 AM) Component Value Range C. Difficle GDH Positive(A) Negative C. Difficile Toxin NegativeComment: Negative Positive for the presence of toxigenic C. difficile but negative for the presence of C. difficile toxin.May be consistent with asymptomatic C. difficile colonization or active C. difficile disease. C. Difficile Toxin PCR Positive(A)Comment: Negative Positive for toxigenic C. difficile Specimen Stool Narrative Test methodology:PCR amplification; Xpert C. difficile Test ([facility]iddler) PTT (PARTIAL THROMBOPLASTIN TIME) (12/06/2016 6:09 AM)Only the most recent of2 resultswithin the time period is included. Component Value Range PTT 30 22-31 secs Specimen Blood PT/INR (PROTHROMBIN TIME/INR) VENOUS (12/06/2016 6:09 AM)Only the most recent of2 resultswithin the time period is included. Component Value Range PT (Prothrombin Time) 14(H) 9-12 secs INR 1.4 <4.0 Specimen Blood LIPID PANEL (12/03/2016 5:55 AM) Component Value Range Cholesterol 72Comment: mg/dL Reference Range: Less than 200 mg/dL - desirable 200 - 240 mg/dL - increased risk Above 240 mg/dL - significant risk Triglycerides 52Comment: 0-150 mg/dL Reference Ranges: Normal:<150 mg/dL Borderline-high:150-199 mg/dL High: 200-499 mg/dL Very high: > tb=299 mg/dL HDL Cholesterol 30(L) >=41 mg/dL LDL - Calculated 32 <=130 mg/dL Non-HDL Cholesterol (Calc) 42Comment: mg/dL The reference ranges for Non-HDL-C are based on National Cholesterol Education III guidelines: Desirable: <130 mg/dL Borderline High: 130-159 mg/dL High:160-189 mg/dL Very High: > vs=498 mg/dL Specimen Blood THYROID STIMULATING HORMONE (12/03/2016 5:55 AM) Component Value Range TSH 1.16 0.27-4.20 IU/mL Specimen Blood THYROXINE (12/03/2016 5:55 AM) Component Value Range T4, Total 7.71 4.60-12.00 g/dL Specimen Blood ECHO ADULT : AFTERHOURS ECHOCARDIOGRAM, TRANSTHORACIC (TTP) (12/02/2016 6:35 PM ) Component Value Range Interpretation Summary TRANSTHORACIC ECHOCARDIOGRAM Visualization of the LV is inadequate due to poor accoustic windows Mid-to distal anteroseptum and apex are akinetic/dyskinetic. LV Ejection Fraction=35-45% (based on visual estimate). Left Ventricle (LV) Normal left ventricular size. Normal LV wall thickness. Visualization of the LV is inadequate due to poor accoustic windows Decreased LV systolic function LV Ejection Fraction=35-45% (based on visual estimate). Mid-to distal anteroseptum and apex are akinetic/dyskinetic. Right Ventricle (RV) Probably enlarged right ventricular size. Probably decreased right ventricular systolic function. Left and Right Atria (LA, RA) LA chamber size: enlarged. Visualization of the RA chamber is limited Mitral Valve (MV) Calcified mitral annulus. Probably normal mitral valve leaflet morphology No mitral valve stenosis. Tricuspid Valve (TV) Tricuspid valve not seen Aortic Valve (AoV) Visualization of the Aortic Valve is inadequate Pulmonic Valve (PV) Pulmonic valve is not visualized Aorta and Pulmonary Artery (Ao, PA) Visualization of the aortic root is poor Procedures Limited 2D ([id number]) Inf. Vena Cava (IVC) / Pulm. Veins IVC not visualized Technical Comments Portable echo performed after hours Echo image quality: poor The LV endocardium is poorly visualized. Primary ICD-9 Code Congestive heart failure, unspecified (428.0) Low Range of LVEF 35 High Range of LVEF 45 Reason For Study Assess Cardiac Function Level Vial Inspector And Tester Kiko Win Interpreting Physician Violet Cr MD electronically signed on 2016-12-03 16:52:21.893 ECG - EKG 12 LEAD (12/02/2016 10:35 AM)Only the most recent of2 resultswithin the time period is included. Component Value Range ECG SEVERITY - ABNORMAL ECG - VENT. RATE 123 bpm RR 488 ms QRSD INTERVAL 92 ms QT INTERVAL 312 ms QTC INTERVAL 447 ms QRS AXIS -32 degrees T WAVE AXIS 122 degrees REPORT Poor data quality, interpretation may be adversely affected. ATRIAL FIBRILLATION LEFT AXIS DEVIATION LOW VOLTAGE IN FRONTAL LEADS NONSPECIFIC T ABNORMALITIES, LATERAL LEADS THE LATERAL T ABNORMALITY IN LEAD I IS NEW. Otherwise no significant change Interpreting Physician: NAKITA VALDERRAMA MD CHEST - AP/PA (12/02/2016 10:33 AM) Impressions Findings / Impression: Grossly stable small right pleural effusion with associated atelectasis. No pneumothorax is demonstrated. No focal consolidations to suggest pneumonia. Sternotomy wires are intact. Narrative Procedure: CHEST - AP/PA Clinical Indication: Tachycardia Comparison: 12/01/2016 Procedure Note Kenji, Incoming Imaging Results - Sat Dec 02, 2016 1:10 PM MEATMAN Procedure: CHEST - AP/PA Clinical Indication: Tachycardia Comparison: 12/01/2016 IMPRESSION Findings / Impression: Grossly stable small right pleural effusion with associated atelectasis. No pneumothorax is demonstrated. No focal consolidations to suggest pneumonia. Sternotomy wires are intact. CHEST- PA& LATERAL (12/01/2016 6:29 PM) Impressions Impression: Small right pleural effusion. Narrative Procedure: CHEST- PA & LATERAL Clinical Indication: Chest pain. Additional history includes acute cholecystitis. Comparison: None. Findings: Small right pleural effusion and linear atelectasis in the right lung base. No lobar consolidation to suggest pneumonia. Mild cardiomegaly, without overt pulmonary vascular congestion. No pneumothoraces. Postoperative change in the sternum. Procedure Note Kenji, Incoming Imaging Results - SunDec 01, 2016 8:22 PM MEATMAN Procedure: CHEST- PA & LATERAL Clinical Indication: Chest pain. Additional history includes acute cholecystitis. Comparison: None. Findings: Small right pleural effusion and linear atelectasis in the right lung base. No lobar consolidation to suggest pneumonia. Mild cardiomegaly, without overt pulmonary vascular congestion. No pneumothoraces. Postoperative change in the sternum. IMPRESSION Impression: Small right pleural effusion. TROPONIN T (12/01/2016 5:55 PM) Component Value Range Troponin-T <0.03 <=0.10 ng/mL Specimen Blood NT-PROBNP (12/01/2016 5:55 PM) Component Value Range NT-ProBNP 4076(H)Comment: 0-852 pg/mL Reference ranges in adults reflect 95th percentiles for NT-pro-BNP levels in patients without congestive heart failure (CHF). Pediatric reference ranges for patients 18 years and younger are from Dinesh et al. Pediatr Cardiol 30:3-8, 2008. Age Reference Range (pg/mL) Pediatric (boys and girls): 0-30 days:263 - 6500 1 month-11 months: 37 - 1000 12 months-35 months: 39 -675 3 years to 6 years:23 -327 7 years to 14 years: 10 -242 15 years to 18 years: 6 -207 Adult Males: 19-44 years: 0 -93 45-54 years: 0 - 138 55-64 years: 0 - 177 65-74 years: 0 - 229 75 years or older: 0 - 852 Adult Females: 19-44 years: 0 - 178 45-54 years: 0 - 192 55-64 years: 0 - 226 65-74 years: 0 - 353 75 years or older: 0 - 624 For adult chronic CHF patients according to [place] [employer] ([place]HA) Functional Class for NT-proBNP levels in pg/mL: [id number] Mean percentile percentile Class I: [id number] Class II:[id number] Class III: [id number] Class IV:[id number] Among patients with dyspnea, NT-proBNP is highly sensitive for the detection of acute CHF. In addition, a NT-proBNP < 300 pg/mL effectively rules out acute CHF, with 99% negative predictive value. Elevations in NT-proBNP levels may be observed in states other than left ventricular congestive failure including: acute coronary syndromes, right heart strain/failure (including pulmonary embolism an d cor pulmonale), critical illness, and renal failure. Falsely low NT-proBNP in CHF patients may be observed in increased body mass index. Specimen Blood LIVER PANEL (12/01/2016 5:55 PM) Component Value Range Bilirubin Total 3.5(H) <=1.2 mg/dL AST 29Comment: 0-40 U/L Adult reference ranges updated on 08/19/13 at 830am ALT 14Comment: 0-41 U/L The upper limit of normal for alanine aminotransferase (ALT) reference ranges for adults is controversial with some authorities recommending limit as low as 30 U/L for males and 19 U/L for females. Th ere is increased incidence of subclinical liver disease (e.g., early steatohepatitis) in patients with ALT values in the range of 31-41 U/L for males and 20-33 U/L for females. ALT values should alway s be interpreted in conjunction with clinical history, physical examination findings, and, if applicable, data from other diagnostic tests. ALP 93 40-129 U/L GGT 33 8-61 U/L Albumin 3.3(L) 3.4-4.8 g/dL Total Protein 7.3 6.0-8.0 g/dL Specimen Blood NUC HEPATOBILIARY SCAN W PHARM INTERVENTION ([id number]) (12/01/2016 4:28 PM) Impressions Impression: Non visualization of gallbladder filling and positive Ely's sign are consistent with acute cholecystitis. Contact: [place] [phone] at 1638 hours of 12/01/2016. Narrative Procedure: NUC HEPATOBILIARY SCAN W PHARM INTERVENTION ([id number]) Study: Quantitative Cholescintigraphy. Indication: Cholelithiasis with gallbladder wall thickening and Positive Ely's; evaluate for cholecystitis versus heart failure. Radiopharmaceutical and other administered agents: 1. Technetium-99m (Tc-99m) mebrofenin 5.5 mCi IV at 1410 hrs. 2. Boosting Technetium-99m (Tc-99m) mebrofenin 2.19 mCi IV at 1554 hrs 3. Morphine 5 mg IV (0.04 mg/kg) IV at 5058 hrs. Technique: Dynamic imaging was not performed due to technical difficulties. Delayed static image of the abdomen was obtained in the left anterior-oblique projection 60 min after radiopharmaceutical administration. Delayed images was were acquired in 5 min intervals for a total of 30 minutes after morphine administration, to assess for delayed filling. Findings: On initial imaging, liver demonstrated uptake and excretion of radiotracer into the small bowel with no apparent gallbladder filling. This pattern persisted on delayed images despite morphine administration. Procedure Note Kenji, Incoming Imaging Results - SunDec 01, 2016 6:16 PM MEATMAN Procedure: NUC HEPATOBILIARY SCAN W PHARM INTERVENTION ([id number]) Study: Quantitative Cholescintigraphy. Indication: Cholelithiasis with gallbladder wall thickening and Positive Ely's; evaluate for cholecystitis versus heart failure. Radiopharmaceutical and other administered agents: 1. Technetium-99m (Tc-99m) mebrofenin 5.5 mCi IV at 1410 hrs. 2. Boosting Technetium-99m (Tc-99m) mebrofenin 2.19 mCi IV at 1554 hrs 3. Morphine 5 mg IV (0.04 mg/kg) IV at 5058 hrs. Technique: Dynamic imaging was not performed due to technical difficulties. Delayed static image of the abdomen was obtained in the left anterior-oblique projection 60 min after radiopharmaceutical administration. Delayed images was were acquired in 5 min intervals for a total of 30 minutes after morphine administration, to assess for delayed filling. Findings: On initial imaging, liver demonstrated uptake and excretion of radiotracer into the small bowel with no apparent gallbladder filling. This pattern persisted on delayed images despite morphine administration. IMPRESSION Impression: Non visualization of gallbladder filling and positive Ely's sign are consistent with acute cholecystitis. Contact: [place] [phone] at 1638 hours of 12/01/2016. US RIGHT UPPER QUADRANT (RUQ) ([id number]) (12/01/2016 11:43 AM) Impressions Impression: 1. Cholelithiasis, gallbladder wall thickening , this could be secondary to heart failure. However in view of positive Ely sign, HIDA scan is recommended. 2. Mild hepatosplenomegaly. 3. Pulsatile portal vein flow, represents heart failure versus tricuspid regurgitation. --- Final --- Narrative [facility] Department of Radiology Ultrasound Division [address] [address] ULTRASOUND REPORT NAME:PARAS LEE Date of Service: 12/01/2016 MRN NO.: [id number] Review Date: 12/01/2016 Patient's : 1940 Resident/Tech: [id number] Marv Sandhu Patient's Age: 76 years Referring MD:SHIVANI HERNANDEZ Indication: RUQ pain. GB wall whitening and stones on OSH US. Please eval. Technique: Right upper quadrant grayscale ultrasound. Findings: Liver: +---------+ + +-------+ + :Size (cm):Echogenicity:Echotexture:Shape:Vascularity: +---------+ + +-------+ + :18.3 :Normal. :Normal.:Normal.:Normal.: +---------+ + +-------+ + Gallbladder: + + + :Gallbladder contents :gallstones and sludge: + + + :Gallbladder wall :Thickened. 6.1 mm. : + + + :Pericholecystic fluid:Present. : + + + :Ely's sign:Positive : + + + Biliary Tree: + + + + :Intrahepatic biliary ducts:Right liver:Left liver: + + + + ::Normal :Normal : + + + + + + + + -+ :Extrahepatic duct:Diameter (mm) :Biliary dilation:Contents/Characteristics: :(common duct):: : : + + + + -+ :Proximal :2.7 :Normal:probable sludge : + + + + -+ :Mid:4.5 :Normal:probably sludge : + + + + -+ :Distal :not visualized:: : + + + + -+ Spleen: Splenomegaly. Spleen measures 13.5 x 13.7 x 4.3 cm. Pancreas: The pancreas is not well visualized. Procedure Note Kenji, Incoming Imaging Results - SunDec 01, 2016 2:32 PM MEATMAN [facility] Department of Radiology Ultrasound Division [address] [address] ULTRASOUND REPORT NAME: PARAS LEE Date of Service: 12/01/2016 MRN NO.: [id number] Review Date: 12/01/2016 Patient's : 1940 Resident/Tech: [id number] Marv Sandhu Patient's Age: 76 years Referring MD: SHIVANI HERNANDEZ Indication: RUQ pain. GB wall whitening and stones on OSH US. Pleaseeval. Technique: Right upper quadrant grayscale ultrasound. Findings: Liver: +---------+ + +-------+ + :Size (cm):Echogenicity:Echotexture:Shape :Vascularity: +---------+ + +-------+ + :18.3 :Normal. :Normal. :Normal.:Normal. : +---------+ + +-------+ + Gallbladder: + + + :Gallbladder contents :gallstones and sludge: + + + :Gallbladder wall :Thickened. 6.1 mm. : + + + :Pericholecystic fluid:Present. : + + + :Ely's sign :Positive : + + + Biliary Tree: + + + + :Intrahepatic biliary ducts:Right liver:Left liver: + + + + : :Normal :Normal : + + + + + + + + -+ :Extrahepatic duct :Diameter (mm) :Biliary dilation:Contents/Characteristics: :(common duct) : : : : + + + + -+ :Proximal :2.7 :Normal :probable sludge : + + + + -+ :Mid :4.5 :Normal :probably sludge : + + + + -+ :Distal :not visualized: : : + + + + -+ Spleen: Splenomegaly. Spleen measures 13.5 x 13.7 x 4.3 cm. Pancreas: The pancreas is not well visualized. IMPRESSION Impression: 1. Cholelithiasis, gallbladder wall thickening , this could be secondaryto heart failure. However in view of positive Ely sign, HIDA scan is recommended. 2. Mild hepatosplenomegaly. 3. Pulsatile portal vein flow, represents heart failure versus tricuspid regurgitation. --- Final --- EXTERNAL CT-STORE& INTERPRET (12/01/2016 8:28 AM) Impressions Impression: 1.Findings of the gallbladder suggestive of acute calculus cholecystitis. There is likely regional liver parenchymal hyperemia in segment 4 adjacent to the gallbladder. 2. Regional subcentimeter lymph nodes near the valorie hepatis likely reactive. 3. Small right pleural effusion . 4. Possible filling defect within posterior basal branches of subsegmental right pulmonary arteries either representing mixing artifact or thrombus but incompletely evaluated on this exam due to contrast bolus timing. If of continued clinical concern for pulmonary embolism, suggest dedicated CT angiogram of the chest. 5. 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 6. Hepatomegaly. 7. Large periampullary duodenal diverticulum. 8.Small left adrenal myelolipoma. 9. Sigmoid diverticulosis. 10. Postsurgical changes of CABG and mild cardiomegaly. Narrative Outside film interpretation requested. Patient name: Paras LeeExam was performed at 0926 hours on 11/28/2016 at [facility]. 235 images are provided and interpreted on the in-house PACS. Procedure: CT exam of the abdomen and pelvis with IV contrast. Technique: Exam is performed with intravenous and oral enteric contrast and consists of transaxial enhanced portal venous phase of the abdomen with transaxial and coronal delayed phase imaging of the abdomen and pelvis. Clinical Indication: Right upper quadrant pain. Cholecystitis. Comparison: External right upper quadrant ultrasound 11/30/2016. Findings: Lower chest: Small right pleural effusion . Bibasilar atelectasis right greater than left. Calcified left perihilar and lower lobe granulomas. Possible filling defects in posterior basal right lower lobe branch pulmonary arteries however incompletely evaluated given contrast bolus timing of the exam. Coronary artery calcifications and cardiomegaly. Liver: Mildly enlarged 19 cm in length. Mild increased parenchymal enhancement in segment 4 of the liver adjacent to the gallbladder. Bile ducts: Not dilated. Gallbladder: Mild gallbladder wall thickening and enhancement with surrounding fat stranding. Small calcified stones in the gallbladder neck. Subcentimeter lymph nodes in the valorie hepatis between the gallbladder and pancreas. Pancreas: Mild fatty atrophy most prominent in the head of the pancreas. The pancreatic duct is not dilated. Spleen: Calcified granulomas. Adrenal glands: 1.3 cm fat-containing left adrenal nodule. Normal right adrenal gland. Kidneys: Normal Ureters: Normal Bladder: Normal Aorta: Nonaneurysmal with calcific atherosclerotic disease. Retroperitoneum: Subcentimeter lymph nodes. Peritoneum: No ascites and no free air. Mesentery: Mild fat stranding adjacent to the gallbladder extending to the valorie hepatis. No enlarged lymph nodes. Stomach: Not distended. Small bowel: Large 4 cm periampullary duodenal diverticulum. The duodenum does not cross midline. The ligament of Treitz is to the right of the spine. There are more distal jejunal ileal loops in the left abdomen. The small bowel is not dilated. Colon: Sigmoid diverticulosis without diverticulitis. The colon is not dilated. Appendix: Normal. Extraperitoneal pelvis: Bilateral fat-containing inguinal hernias left greater than right. No lymphadenopathy. Prostate: Prostatic seeds are within the prostate gland. The prostate is not enlarged. Abdominal wall: Fat-containing paraumbilical hernia. Bones: Sternotomy. The bones are osteopenic. Procedure Note Kenji, Incoming Imaging Results - SunDec 01, 2016 11:50 AM MEATMAN Outside film interpretation requested. Patient name: Paras Lee Exam was performed at 0926 hours on 11/28/2016 at [facility]. 235 images are provided and interpreted on the in-house PACS. Procedure: CT exam of the abdomen and pelvis with IV contrast. Technique: Exam is performed with intravenous and oral enteric contrast and consists of transaxial enhanced portal venous phase of the abdomen with transaxial and coronal delayed phase imaging of the abdomen and pelvis. Clinical Indication: Right upper quadrant pain. Cholecystitis. Comparison: External right upper quadrant ultrasound 11/30/2016. Findings: Lower chest: Small right pleural effusion . Bibasilar atelectasis right greater than left. Calcified left perihilar and lower lobe granulomas. Possible filling defects in posterior basal right lower lobe branch pulmonary arteries however incompletely evaluated given contrast bolus timing of the exam. Coronary artery calcifications and cardiomegaly. Liver: Mildly enlarged 19 cm in length. Mild increased parenchymal enhancement in segment 4 of the liver adjacent to the gallbladder. Bile ducts: Not dilated. Gallbladder: Mild gallbladder wall thickening and enhancement with surrounding fat stranding. Small calcified stones in the gallbladder neck. Subcentimeter lymph nodes in the valorie hepatis between the gallbladder and pancreas. Pancreas: Mild fatty atrophy most prominent in the head of the pancreas. The pancreatic duct is not dilated. Spleen: Calcified granulomas. Adrenal glands: 1.3 cm fat-containing left adrenal nodule. Normal right adrenal gland. Kidneys: Normal Ureters: Normal Bladder: Normal Aorta: Nonaneurysmal with calcific atherosclerotic disease. Retroperitoneum: Subcentimeter lymph nodes. Peritoneum: No ascites and no free air. Mesentery: Mild fat stranding adjacent to the gallbladder extending to the valorie hepatis. No enlarged lymph nodes. Stomach: Not distended. Small bowel: Large 4 cm periampullary duodenal diverticulum. The duodenum does not cross midline. The ligament of Treitz is to the right of the spine. There are more distal jejunal ileal loops in the left abdomen. The small bowel is not dilated. Colon: Sigmoid diverticulosis without diverticulitis. The colon is not dilated. Appendix: Normal. Extraperitoneal pelvis: Bilateral fat-containing inguinal hernias left greater than right. No lymphadenopathy. Prostate: Prostatic seeds are within the prostate gland. The prostate is not enlarged. Abdominal wall: Fat-containing paraumbilical hernia. Bones: Sternotomy. The bones are osteopenic. IMPRESSION Impression: 1. Findings of the gallbladder suggestive of acute calculus cholecystitis. There is likely regional liver parenchymal hyperemia in segment 4 adjacent to the gallbladder. 2. Regional subcentimeter lymph nodes near the valorie hepatis likely reactive. 3. Small right pleural effusion . 4. Possible filling defect within posterior basal branches of subsegmental right pulmonary arteries either representing mixing artifact or thrombus but incompletely evaluated on this exam due to contrast bolus timing. If of continued clinical concern for pulmonary embolism, suggest dedicated CT angiogram of the chest. 5. 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 6. Hepatomegaly. 7. Large periampullary duodenal diverticulum. 8. Small left adrenal myelolipoma. 9. Sigmoid diverticulosis. 10. Postsurgical changes of CABG and mild cardiomegaly. EXTERNAL US-STORE& INTERPRET (12/01/2016 8:28 AM) Impressions Findings/impression: There are gallstones. There is mild gallbladder wall thickening which could be secondary to heart failure. Portal vein reveals pulsatile flow suggestive of congestive heart failure versus tricuspid regurgitation. Comparison CT reveals cardiomegaly. Narrative Outside film interpretation requested. Exam was performed at 1042 hours on 11/30/2016 at [facility]. 29 images are provided and interpreted onthe in-house dedicated ultrasound PACS. Procedure: External Ultrasound Store and Interpret - Right upper quadrant ultrasound Technique: Images are submitted of the right upper quadrant,with portal vein spectral Doppler analysis.Exam is limited by imaging quality and the lack of real-time assessment. Lesion: Right upper quadrant pain. Comparison: CT scan dated 11/28/2016 Procedure Note Kenji, Incoming Imaging Results - SunDec 04, 2016 3:02 PM CDT Outside film interpretation requested. Exam was performed at 1042 hours on 11/30/2016 at [facility]. 29 images are provided and interpreted on the in-house dedicated ultrasound PACS. Procedure: External Ultrasound Store and Interpret - Right upper quadrant ultrasound Technique: Images are submitted of the right upper quadrant, with portal vein spectral Doppler analysis. Exam is limited by imaging quality and the lack of real-time assessment. Lesion: Right upper quadrant pain. Comparison: CT scan dated 11/28/2016 IMPRESSION Findings/impression: There are gallstones. There is mild gallbladder wall thickening which could be secondary to heart failure. Portal vein reveals pulsatile flow suggestive of congestive heart failure versus tricuspid regurgitation. Comparison CT reveals cardiomegaly. BLOOD CULTURE (12/01/2016 8:21 AM)Only the most recent of3 resultswithin the time period is included. Component Value Range Blood Culture No Growth Specimen Blood - Blood, Venipuncture DIFFERENTIAL (12/01/2016 7:57 AM) Component Value Range % Neutrophils-Auto Diff 83.6 % Neutrophils-Auto Diff 36883(H) 4309-9076 /MM3 % Lymphocytes-Auto Diff 3.5 % Lymphocytes-Auto Diff 650(L) 875-3300 /MM3 % Monocytes-Auto Diff 11.4 % Monocytes-Auto Diff 2140(H) 130-860 /MM3 % Eosinophils-Auto Diff 0.0 % Eosinophils-Auto Diff 0(L) 40-390 /MM3 % Basophils 0.1 % Basophils-Auto Diff 20 10-136 /MM3 % Immature Granulocytes-Auto Diff 1.4 % Immature Granulocytes-Auto Diff 270 /MM3 Specimen Whole Blood CBC (COMPLETE BLOOD COUNT) (12/01/2016 7:57 AM) Component Value Range WBC Count 18.8(H) 3.7-10.5 K/MM3 RBC Count 5.24 4.50-6.20 M/MM3 Hemoglobin 14.5 13.2-17.7 g/dL Hematocrit 45 40-52 % MCV (Mean Corpuscular Volume) 86 82-99 FL MCH (Mean Corpuscular Hemoglobin) 28 25-35 PG MCHC (Mean Corpuscular Hemoglobin Concentration) 32 32-36 % Platelet Count 207 150-400 K/MM3 MPV (Mean Platelet Volume) 10.6 9.4-12.3 FL RBC Dist Width-STD 52.6(H) 35.1-43.9 FL RBC Distrib Width 17.0(H) 9.0-14.5 % Nucleated RBC 0 /100 WBC Specimen Whole Blood HEPATITIS B SURFACE ANTIGEN (12/01/2016 7:57 AM) Component Value Range Hep B Surface Antigen Negative Negative Specimen Blood HEPATITIS C ANTIBODY (12/01/2016 7:57 AM) Component Value Range Hepatitis C Virus Antibody Negative Negative Specimen Blood LIPASE (12/01/2016 7:57 AM) Component Value Range Lipase 14 13-60 U/L Specimen Blood AMYLASE (12/01/2016 7:57 AM) Component Value Range Amylase 25Comment: 0-100 U/L Amylase assay methodology and reference range changed 01/13/10. Specimen Blood CBC WITH DIFFERENTIAL (12/01/2016 7:57 AM) Specimen Whole Blood Narrative The following orders were created for panel order CBC WITH DIFFERENTIAL. Procedure Abnormality Status --------- ------ CBC (COMPLETE BLOOD COUNT)[[id number]] AbnormalFinal result DIFFERENTIAL[[id number]] AbnormalFinal result Please view results for these tests on the individual orders.
[2017-02-02] MEDS ORDERED: DIATRIZOATE MEGLU/DIATRIZO SOD 30 ML BTL ONE (14:18)
[2017-02-02 14:19] LABS: Hematocrit 39.3 % (42.0-52.0); Hemoglobin 13.4 gm/dL (13.5-18.0); Mean Cell Volume 85.1 fl (78-100); Mean Corpuscular Hgb Conc 34.1 g/dl (32-36); Mean Platelet Volume 9.6 fl (6.0-9.5); Neutrophil % 63.7 % (42-75.0); Platelet Count 212 K/mm3 (150-450); Red Blood Count 4.62 M/mm3 (4.7-6.0); Red Cell Distribution Width 19.1 % (11.5-14.0); White Blood Count 7.9 K/mm3 (4.0-10.5)
[2017-02-02 14:35] LABS: Albumin * 2.8 gm/dl (3.4-5.0); Anion Gap 11.2 mmol/L (6.8-13.8); BUN/Creatinine Ratio 21.4 (9.0-21.6); Bilirubin, Total 1.3 mg/dL (0.0-1.1); Ca. Corrected For Albumin 9.2 mg/dL (8.4-10.2); Calcium * 8.6 mg/dL (7.9-10.9); Potassium 4.2 mmol/L (3.4-4.6); Total Protein 6.7 gm/dL (6.2-8.2)
[2017-02-02 15:52] LABS: Urine Bilirubin Negative (NEGATIVE); Urine Blood Negative /ul (NEGATIVE); Urine Ketone Negative (NEGATIVE); Urine Protein 15 mg/dL (NEGATIVE); Urine Specific Gravity >=1.030 SP.GR. (1.005-1.030); Urine pH 5.5 pH (5.0-7.0)
[2017-02-02 16:01] LABS: Urine Appearance Clear; Urine Color Orange; Urine Nitrite Positive (NEGATIVE)
[2017-02-02 16:02] LABS: Urine Bacteria 4+; Urine Hyaline Cast >25 /LPF; Urine Mucus Many - 3+; Urine RBC None Seen /hpf (0-5); Urine WBC 0-5 /hpf (0-5)
[2017-02-02 18:06] VITALS: BP 115/45
== END 2017-02-02 18:40 ==
LOC: ER 12:54
DX: R10.9 Unspecified abdominal pain (principal); K80.70 Calculus of gallbladder and bile duct without cholecystitis without obstruction; N39.0 Urinary tract infection, site not specified; Z85.46 Personal history of malignant neoplasm of prostate; I10 Essential (primary) hypertension; I25.2 Old myocardial infarction; I48.91 Unspecified atrial fibrillation; Z79.01 Long term (current) use of anticoagulants; E11.9 Type 2 diabetes mellitus without complications; Z79.4 Long term (current) use of insulin; E78.5 Hyperlipidemia, unspecified; K80.20 Calculus of gallbladder without cholecystitis without obstruction

== ENCOUNTER 2019-07-22 11:13 | Inpatient (IN) ==
--- NOTE | 2019-07-22 11:31 | ERNOTE ---
Time Seen by Provider: 07/22/19 11:13 Stated Complaint: cough Presenting Symptoms:: cough Source: patient Exam Limitations: no limitations Immunizations: IMMUNIZATION HX Immunizations Up to Date Yes History of Influenza Vaccine No Hx Pneumococcal Vaccination Yes Allergies/Adverse Reactions: Allergies heparin Adverse Reaction (Verified 07/22/19 11:17) Home Medications: HOME MEDICATIONS Apixaban [Eliquis] 5 mg PO BID 07/08/15 [Last Taken Unknown] Finasteride [Proscar] 5 mg PO DAILY 07/08/15 [Last Taken Unknown] Furosemide [Lasix] 80 mg PO DAILY 07/08/15 [Last Taken Unknown] Gabapentin [Neurontin] 300 mg PO BID 07/08/15 [Last Taken Unknown] Metoprolol Succinate [Toprol Xl] 400 mg PO DAILY 07/08/15 [Last Taken Unknown] Multivit-Min/FA/Lycopen/Lutein [Centrum Silver Tablet] 1 ea PO DAILY 07/08/15 [Last Taken Unknown] Omeprazole [Prilosec] 20 mg PO DAILY 07/08/15 [Last Taken Unknown] Tamsulosin HCl [Flomax] 0.4 mg PO DAILY@1800 07/08/15 [Last Taken Unknown] Ferrous Sulfate 325 mg PO TID 11/28/16 [Last Taken Unknown] Aspirin 81 mg PO DAILY 02/02/17 [Last Taken Unknown] Lisinopril [Zestril] 2.5 mg PO DAILY 02/02/17 [Last Taken Unknown] Spironolactone [Aldactone] 12.5 mg PO DAILY 02/02/17 [Last Taken Unknown] acetaminophen 325 mg tablet 650 mg PO Q4H PRN tab 10/30/18 [Last Taken Unknown] escitalopram oxalate 10 mg tablet 10 mg PO DAILY 10/30/18 [Last Taken Unknown] nystatin 100,000 unit/gram topical powder 1 applic TP BID 10/30/18 [Last Taken Unknown] Budesonide/Formoterol Fumarate [Symbicort 160-4.5 Mcg Inhaler] 2 puff INHALATION BID 12/09/18 [Last Taken Unknown] Cetirizine HCl [Zyrtec] 10 mg PO DAILY 12/09/18 [Last Taken Unknown] Cholecalciferol (Vitamin D3) [Vitamin D3] 5,000 unit PO DAILY 12/09/18 [Last Taken Unknown] Hydrophilic Ointment [Aquaphilic Ointment] 1 appl TOPICAL TID PRN 12/09/18 [Last Taken Unknown] Insulin Glargine,Hum.rec.anlog [Lantus] 12 unit SQ DAILY 12/09/18 [Last Taken Unknown] Insulin Lispro [Humalog] See Protocol SQ TID 12/09/18 [Last Taken Unknown] Melatonin 10 mg PO HS 12/09/18 [Last Taken Unknown] Menthol [Biofreeze] 1 appl TOPICAL BID PRN 12/09/18 [Last Taken Unknown] Polyethylene Glycol 3350 [Miralax] 17 gm PO DAILY PRN 12/09/18 [Last Taken Unknown] Tiotropium [place] [Spiriva] 18 mcg INHALATION DAILY 12/09/18 [Last Taken Unknown] atorvastatin 40 mg tablet 20 mg PO DAILY tab 03/05/19 [Last Taken Unknown] - History of Present Ilness Narrative: Patient is coming from the [facility] for a productive cough he has had for 4-5 days. He gets short of breath with coughing at times, denies any chest pain, has a history of CAD, CHF, afib, DM. O2 sat were in the mid 80's on room air at the [facility], patient doesn't routinely wear oxygen but was started on two liters the last couple of days Timing: intermittent Severity: moderate Frequency/Possible Cause: Reports: occasional episodes Modifying Factors - Improves: Reports: rest Modifying Factors - Worsens: Reports: coughing Associated Symptoms: Reports: cough, shortness of breath. Denies: chest pain/soreness, nasal congestion, nasal drainage, sore throat Prior Treatment: Denies: recently seen, currently on antibiotics Review of Systems - Review of Systems Constitutional: Absent: recent illness, fever ENT: Present: no symptoms reported Respiratory: Present: See HPI, shortness of breath Cardiology: Present: See HPI. 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 (Acute) Hypertension (Chronic) Onset Date: Unknown Hyperlipemia (Chronic) Onset Date: Unknown COPD (chronic obstructive pulmonary disease) (Chronic) Onset Date: Unknown CAD (coronary artery disease) (Chronic) Onset Date: Unknown Abdominal aortic aneurysm (AAA) 3.0 cm to 5.5 cm in diameter in male (Chronic) Onset Date: Unknown 4cm diam Type 2 diabetes mellitus (Chronic) Onset Date: Unknown CHF (congestive heart failure) (Chronic) Onset Date: Unknown Atrial fibrillation (Chronic) Onset Date: Unknown Basal cell carcinoma Cataract Chronic sinusitis Difficulty walking Edema Facial weakness Major depression Muscle weakness Slurred speech Supplemental oxygen dependent Wears dentures Wears glasses Acute cholecystitis Diabetes mellitus type 2 Edema Essential hypertension Heart failure Surgical History: Surgical History (Last Reviewed 07/22/19 @ 11:26 by Susie Diallo MD) History of cholecystectomy (Resolved) Onset Date: Unknown Hx of right BKA (Chronic) Onset Date: Unknown History of amputation of toe L foot X5 History of heart bypass surgery X3 History of right lower limb amputation Family History: Family History (Last Reviewed 07/22/19 @ 11:18 by Anusha Scott RN) Father INTESTINAL SURGERY COMPLICATIONS Mother Diabetes Brother Cancer ESOPHAGUS Brother Alive and well Son Son Alive and well Son Alive and well Social History: (Last Reviewed 07/22/19 @ 11:18 by Anusha Scott RN) Social History: care home: Yes Tobacco: Smoking Status: Former smoker Physical Exam - Physical Exam General Appearance: Present: wd/wn, alert, no apparent distress, obese Head Exam: Present: normal inspection Ears, Nose, Throat: Present: normal pharynx Respiratory: Present: no respiratory distress, no accessory muscle use, lungs clear, decreased breath sounds - right more than left Cardiovascular/Chest: Present: regular rate, rhythm, no murmur Gastrointestinal/Abdominal: Present: normal bowel sounds, nontender Extremity Exam: Present: other - right BKA, left leg: forefoot amputation, two very small ulcers on mcneill, no signs of infection Neurological Exam: Present: alert, oriented, normal mood/affect Skin Exam: Present: normal color, warm/dry Progress - Results and Orders Patient's Lab Results:: I have reviewed the patient's lab results. - Vital Signs Patient's Vital Signs:: I have reviewed the patient's vital signs. Vital Signs: Vital Signs 07/22/19 11:14 Temperature 36.3 C Pulse Rate 78 Respiratory Rate 20 Blood Pressure 100/54 O2 Sat by Pulse Oximetry 88 L - EKG EKG #1 EKG: atrial fibrillation, other - low QRS EKG read: Interp. by me - X-Ray X-Ray #1 X-Ray: chest - right sided infiltrate, chronic right lung changes Interpretation: Discd w/ radiologist - Progress/Reassessment Chief Complaint: Upper Respiratory Symptoms Progress Note-Subjective: 07/22/19 12:31 discussed test results with patient, agreed to admission 07/22/19 12:[address] Pina 07/22/19 12:[address] Pina, dannay to admit and start rocephin and zithromax, states that patient also recently had his lasix increased, will hold off on more lasix as blood pressure 100 to high 90's systolic, patient doesn't meet SIRS criteria will admit to acute (after discussion with patient case coordinator) as patient is hypoxic and has PSI 99, class IV 07/22/19 12:50 discussed plan with daughter Departure Clinical Impression: Acute hypoxemic respiratory failure Pneumonia Qualifiers: Pneumonia type: due to unspecified organism Laterality: right Lung location: unspecified part of lung Qualified Code(s): J18.9 - Pneumonia, unspecified organism CHF (congestive heart failure) Qualifiers: Heart failure type: unspecified Heart failure chronicity: unspecified Qualified Code(s): I50.9 - Heart failure, unspecified - Departure Disposition: Still a patient Condition: Stable
[2019-07-22 11:58] LABS: Hematocrit 45.1 % (42.0-52.0); Hemoglobin 14.3 gm/dL (13.5-18.0); Mean Cell Volume 93.8 fl (78-100); Mean Corpuscular Hemoglobin 29.7 pg (27-31); Mean Corpuscular Hgb Conc 31.7 g/dl (32-36); Mean Platelet Volume 9.5 fl (8-11.3); Neutrophil # 4.1 K/mm3 (1.3-6.0); Neutrophil % 66.2 % (42-75.0); Platelet Count 142 K/mm3 (150-450); Red Blood Count 4.81 M/mm3 (4.7-6.0); Red Cell Distribution Width 16.8 % (11.5-14.0); White Blood Count 6.2 K/mm3 (4.0-10.5)
[2019-07-22 12:17] LABS: Troponin I Less than 0.017 ng/mL (0.00-0.10)
[2019-07-22 12:18] LABS: ALT 8 U/L (19-67); AST 18 U/L (0-48); Albumin * 2.5 gm/dl (3.4-5.0); Alkaline Phosphatase * 79 U/L (50-170); Anion Gap 6.4 mmol/L (6.8-13.8); BNP * 3279 pg/mL (5-650); Bilirubin, Total 2.1 mg/dL (0.0-1.1); Blood Urea Nitrogen 15 mg/dL (6-23); Ca. Corrected For Albumin 9.3 mg/dL (8.4-10.2); Calcium * 8.4 mg/dL (7.9-10.9); Carbon Dioxide 35.4 mmol/L (24-32.6); Chloride 100 mmol/L (97-106); Glucose * 104 mg/dL (70-110); Potassium 3.8 mmol/L (3.4-4.6); Sodium 138 mmol/L (132-142); Total Protein 6.6 gm/dL (6.2-8.2)
[2019-07-22] MEDS ORDERED: AZITHROMYCIN 250 MG TABLET PO STA (12:50)
[2019-07-22] MEDS ORDERED: ACETAMINOPHEN 325 MG TABLET PO PRN (17:43)
[2019-07-22] MEDS ORDERED: POLYETHYLENE GLYCOL 3350 17 GM PACKET PO PRN (17:43)
[2019-07-22] MEDS ORDERED: NYSTATIN 15 APPL BTL TP PRN (17:43)
[2019-07-22] MEDS ORDERED: POLYVINYL ALCOHOL 150 DROP BTL EACHEYE PRN (17:43)
[2019-07-22] MEDS ORDERED: MINERAL OIL/PETROLATUM,WHITE 454 APPL JAR TP PRN (17:43)
--- NOTE | 2019-07-22 18:17 | HP ---
Chief Complaint - Chief Complaint Date of Service: 07/22/19 Time of Service: 17:56 Chief Complaint: dyspnea, weakness, cough History of Present Illness: Paras is a 78 yo wh. morbidly obese wh. male resident at the [facility] who was fealing short of breath and of being weak. O2 sat there was 83%. I was called at the office and had him brought to the ER. His O2 sat was 88% on arrival. CXR revealed an infiltrate in the RLL. He is admitted for pneumonia, hypoxemia, edema, weakness. BP is about 100 systolic. BNP is > 3000. I had seen him last Sunday and increased his Lasix 80mg to bid due to marked edema. He has several superficial wounds on his LLE. He has bilateral partial amputations of the distal R foot and L. BKA. Medical History (Last Reviewed 07/22/19 @ 13:54 by Esther Abreu RN) Senile cataracts of both eyes (Chronic) Ida infection (Acute) Of the coughed sputum specimen 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 (Acute) Hypertension (Chronic) Onset Date: Unknown Hyperlipemia (Chronic) Onset Date: Unknown COPD (chronic obstructive pulmonary disease) (Chronic) Onset Date: Unknown CAD (coronary artery disease) (Chronic) Onset Date: Unknown Abdominal aortic aneurysm (AAA) 3.0 cm to 5.5 cm in diameter in male (Chronic) Onset Date: Unknown 4cm diam Type 2 diabetes mellitus (Chronic) Onset Date: Unknown CHF (congestive heart failure) (Chronic) Onset Date: Unknown Atrial fibrillation (Chronic) Onset Date: Unknown Basal cell carcinoma Cataract Chronic sinusitis Difficulty walking Edema Facial weakness Major depression Muscle weakness Slurred speech Supplemental oxygen dependent Wears dentures Wears glasses Acute cholecystitis Diabetes mellitus type 2 Edema Essential hypertension Heart failure Surgical History: Surgical History (Last Reviewed 07/22/19 @ 13:54 by Esther Abreu RN) History of cholecystectomy (Resolved) Onset Date: Unknown Hx of right BKA (Chronic) Onset Date: Unknown History of amputation of toe L foot X5 History of heart bypass surgery X3 History of right lower limb amputation Family History: Family History (Last Reviewed 07/22/19 @ 13:54 by Esther Abreu RN) Father INTESTINAL SURGERY COMPLICATIONS Mother Diabetes Brother Cancer ESOPHAGUS Brother Alive and well Son Son Alive and well Son Alive and well Social History: (Last Reviewed 07/22/19 @ 13:54 by Esther Abreu RN) Social History: shelter: Yes Tobacco: Smoking Status: Former smoker Review Of Systems (GEN) - Review of Systems Generalized/Overall Review: Present: Weakness EENTM: Present: Nose Congestion Respiratory: Present: Cough, Shortness of Breath Cardiac: Present: No Symptoms Reported Abdominal: Present: No Symptoms Reported Genitourinary: Present: No Symptoms Reported Musculoskeletal: Present: No Symptoms Reported Neurological: Present: No Symptoms Reported Skin: Present: Lesions - on the L. leg Endocrine: Present: No Symptoms Reported Misc: All systems neg except as marked Immunizations: IMMUNIZATION HX Immunizations Up to Date Yes History of Influenza Vaccine No Hx Pneumococcal Vaccination Yes Allergies/Adverse Reactions: Allergies Allergy/AdvReac Type Severity Reaction Status Date / Time heparin AdvReac Verified 07/22/19 13:54 Home Medications: HOME MEDICATIONS Apixaban [Eliquis] 5 mg PO BID 07/08/15 [Last Taken Unknown] Finasteride [Proscar] 5 mg PO DAILY 07/08/15 [Last Taken Unknown] Furosemide [Lasix] 80 mg PO BID 07/08/15 [Last Taken Unknown] Gabapentin [Neurontin] 300 mg PO BID 07/08/15 [Last Taken Unknown] Metoprolol Succinate [Toprol Xl] 400 mg PO DAILY 07/08/15 [Last Taken Unknown] Multivit-Min/FA/Lycopen/Lutein [Centrum Silver Tablet] 1 ea PO DAILY 07/08/15 [Last Taken Unknown] Omeprazole [Prilosec] 20 mg PO DAILY 07/08/15 [Last Taken Unknown] Tamsulosin HCl [Flomax] 0.4 mg PO DAILY@0700 07/08/15 [Last Taken Unknown] Ferrous Sulfate 325 mg PO TID 11/28/16 [Last Taken Unknown] Aspirin 81 mg PO DAILY 02/02/17 [Last Taken Unknown] Lisinopril [Zestril] 2.5 mg PO DAILY 02/02/17 [Last Taken Unknown] Spironolactone [Aldactone] 12.5 mg PO DAILY 02/02/17 [Last Taken Unknown] acetaminophen 325 mg tablet 650 mg PO Q4H PRN tab 10/30/18 [Last Taken Unknown] escitalopram oxalate 10 mg tablet 10 mg PO DAILY 10/30/18 [Last Taken Unknown] nystatin 100,000 unit/gram topical powder 1 applic TP BID PRN 10/30/18 [Last Taken Unknown] Budesonide/Formoterol Fumarate [Symbicort 160-4.5 Mcg Inhaler] 2 puff INHALATION BID 12/09/18 [Last Taken Unknown] Cetirizine HCl [Zyrtec] 10 mg PO DAILY 12/09/18 [Last Taken Unknown] Cholecalciferol (Vitamin D3) [Vitamin D3] 5,000 unit PO DAILY 12/09/18 [Last Taken Unknown] Hydrophilic Ointment [Aquaphilic Ointment] 1 appl TOPICAL TID PRN 12/09/18 [Last Taken Unknown] Insulin Glargine,Hum.rec.anlog [Lantus] 12 unit SQ DAILY 12/09/18 [Last Taken Unknown] Melatonin 10 mg PO HS 12/09/18 [Last Taken Unknown] Menthol [Biofreeze] 1 appl TOPICAL BID PRN 12/09/18 [Last Taken Unknown] Polyethylene Glycol 3350 [Miralax] 17 gm PO DAILY PRN 12/09/18 [Last Taken Unknown] Tiotropium [place] [Spiriva] 18 mcg INHALATION DAILY 12/09/18 [Last Taken Unknown] atorvastatin 40 mg tablet 20 mg PO Q48H tab 03/05/19 [Last Taken 07/21/19 19:00] Carboxymethylcellulose Sodium [Refresh Tears] 1 drp EACHEYE BID PRN 07/22/19 [ Last Taken Unknown] Insulin Lispro [Humalog] See Protocol SQ AC 07/22/19 [Last Taken Unknown] Ipratropium [place] [Atrovent 0.06% Nasal [place]] 2 spray NS QID 07/22/19 [Last Taken Unknown] Loperamide HCl [Imodium] 2 mg PO PRN PRN 07/22/19 [Last Taken Unknown] Magnesium Hydroxide [Milk Of Magnesia] 30 ml PO DAILY PRN 07/22/19 [Last Taken Unknown] Mineral Oil/Petrolatum,White [Eucerin] 1 appl TOPICAL DAILY 07/22/19 [Last Taken Unknown] Nut.tx.gluc Intol,Lf,Soy/Fiber [Glucerna] 240 ml PO TID 07/22/19 [Last Taken Unknown] Nystatin [Mycostatin Powder] 1 appl TOPICAL BID PRN 07/22/19 [Last Taken Unkn own] guaiFENesin/DEXTROMETHORPHAN [Robafen Dm Cough Syrup] 10 ml PO Q4H PRN 07/22/19 [Last Taken Unknown] Exam - Exam Vital Signs: Vital Signs - Last Taken Temp 36.8 C 07/22/19 17:13 Pulse 70 07/22/19 17:52 Resp 18 07/22/19 17:13 BP 98/64 07/22/19 17:52 Pulse Ox 97 07/22/19 17:13 Constitutional: Present: Alert, Oriented x3, Cooperative, Well developed, Well nourished, Elderly, Morbidly obese ENT Exam: Present: normal ENT inspection, hearing grossly normal, pharynx normal, TMs normal Eye Exam: bilateral eye: normal inspection, PERRL, EOMI Neck: Present: non-tender, supple, normal inspection, trachea midline, limited range of motion Back Exam: Present: normal inspection, no CVA tenderness, no vertebral tenderness Breasts: Present: Exam deferred Respiratory: Present: chest non-tender, decreased breath sounds, rhonchi Cardiovascular/Chest: Present: normal peripheral pulses, regular rate, rhythm, no chest tenderness, edema Peripheral Pulses: carotid (R): 2+, carotid (L): 2+, radial (R): 2+, radial (L): 2+ Abdomen: Present: Normal bowel sounds, soft, nontender, nondistended, no rebound tenderness, no hepatospenomegaly, no masses /Rectal: Present: Exam deferred Extremity: Present: normal range of motion, non-tender, no calf tenderness, lower extremity edema, slow capillary refill, swelling Skin Exam: Present: normal color Lymphatic: Present: no adenopathy Neurologic: Present: cartoon artist II-XII nml as tested, alert, normal mood/affect Appearance: Present: appropriate appearance, appropriate insight, neat, no memory impairment Eye contact: Present: cooperative, good eye contact, normal speech Thoughts: Present: normal thought pattern, no apparent hallucination Diagnostic Studies: Abnormal Lab Results 07/22/19 07/22/19 Range/Units 11:50 11:50 MCHC 31.7 L (32-36) g/dl RDW 16.8 H (11.5-14.0) % Plt Count 142 L (150-450) K/mm3 Immature Gran % (Auto) 4.00 H (0.001-0.429) % Immature Gran # (Auto) 0.25 H (0.000-0.0310) K/mm3 Lymphocytes % 17.0 L (20-51) % Monocytes % 10.4 H (0.0-9) % Lymphocytes # 1.06 L (1.5-3.5) k/mm3 Carbon Dioxide 35.4 H (24-32.6) mmol/L Anion Gap 6.4 L (6.8-13.8) mmol/L Total Bilirubin 2.1 H (0.0-1.1) mg/dL ALT 8 L (19-67) U/L B-Natriuretic Peptide 3279 H (5-650) pg/mL Albumin 2.5 L (3.4-5.0) gm/dl Laboratory Results WBC 6.2 K/mm3 (4.0-10.5) 07/22/19 11:50 RBC 4.81 M/mm3 (4.7-6.0) 07/22/19 11:50 Hgb 14.3 gm/dL (13.5-18.0) 07/22/19 11:50 Hct 45.1 % (42.0-52.0) 07/22/19 11:50 MCV 93.8 fl (78-100) 07/22/19 11:50 MCH 29.7 pg (27-31) 07/22/19 11:50 MCHC 31.7 g/dl (32-36) L 07/22/19 11:50 RDW 16.8 % (11.5-14.0) H 07/22/19 11:50 Plt Count 142 K/mm3 (150-450) L 07/22/19 11:50 MPV 9.5 fl (8-11.3) 07/22/19 11:50 Immature Gran % (Auto) 4.00 % (0.001-0.429) H 07/22/19 11:50 Immature Gran # (Auto) 0.25 K/mm3 (0.000-0.0310) H 07/22/19 11:50 Neutrophils % 66.2 % (42-75.0) 07/22/19 11:50 Lymphocytes % 17.0 % (20-51) L 07/22/19 11:50 Monocytes % 10.4 % (0.0-9) H 07/22/19 11:50 Eosinophils % 1.8 % (0.0-3.0) 07/22/19 11:50 Basophils % 0.6 % (0.0-1.0) 07/22/19 11:50 Nucleated RBC % 0.0 k/mm3 (0-1) 07/22/19 11:50 Neutrophils # 4.1 K/mm3 (1.3-6.0) 07/22/19 11:50 Lymphocytes # 1.06 k/mm3 (1.5-3.5) L 07/22/19 11:50 Monocytes # 0.7 k/mm3 (0.0-1.0) 07/22/19 11:50 Eosinophils # 0.1 k/mm3 (0.0-0.7) 07/22/19 11:50 Absolute Basophils 0.0 k/mm3 (0.0-0.1) 07/22/19 11:50 Sodium 138 mmol/L (132-142) 07/22/19 11:50 Plasma Sodium 138 mmol/L (130-142) 07/22/19 11:50 Potassium 3.8 mmol/L (3.4-4.6) 07/22/19 11:50 Chloride 100 mmol/L (97-106) 07/22/19 11:50 Carbon Dioxide 35.4 mmol/L (24-32.6) H 07/22/19 11:50 Anion Gap 6.4 mmol/L (6.8-13.8) L 07/22/19 11:50 BUN 15 mg/dL (6-23) 07/22/19 11:50 Creatinine 1.00 mg/dL (0.4-1.4) 07/22/19 11:50 Est GFR (Non-Af Amer) 77 mL/min (60-130) D 07/22/19 11:50 BUN/Creatinine Ratio 15.0 (9.0-21.6) 07/22/19 11:50 Random Glucose 104 mg/dL (70-110) 07/22/19 11:50 Lactic Acid, Venous 1.5 mmol/L (0.4-2.0) 07/22/19 11:50 Calcium 8.4 mg/dL (7.9-10.9) 07/22/19 11:50 Calcium Adj for Albumin 9.3 mg/dL (8.4-10.2) 07/22/19 11:50 Total Bilirubin 2.1 mg/dL (0.0-1.1) H 07/22/19 11:50 AST 18 U/L (0-48) 07/22/19 11:50 ALT 8 U/L (19-67) L 07/22/19 11:50 Alkaline Phosphatase 79 U/L (50-170) 07/22/19 11:50 Troponin I Less than 0.017 ng/mL (0.00-0.10) 07/22/19 11:50 B-Natriuretic Peptide 3279 pg/mL (5-650) H 07/22/19 11:50 Total Protein 6.6 gm/dL (6.2-8.2) 07/22/19 11:50 Albumin 2.5 gm/dl (3.4-5.0) L 07/22/19 11:50 Assessment/Plan - Narrative Narrative: 1. RT treatements 2. O2 2L NC but wean when able 3. IV ABX Rocephin and po Azithromycin 4. Progress activity as tolerated. 5. Decrease antihypertensive meds. 6. 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 Problem: Acute (5) Hypertension Problem: Chronic Qualifiers: Hypertension type: essential hypertension (6) Type 2 diabetes mellitus Problem: Chronic Qualifiers: Diabetes mellitus terminal superintendent insulin use: with terminal superintendent use Diabetes mellitus complication status: with circulatory complication Diabetes mellitus complication detail: with other circulatory complications Qualified Code(s): E11.59 - Type 2 diabetes mellitus with other circulatory complications; Z79.4 - senior care (current) use of insulin (7) Pneumonia Problem: Acute Qualifiers: Pneumonia type: due to unspecified organism Laterality: right Lung location: lower lobe of lung Qualified Code(s): J18.1 - Lobar pneumonia, unspecified organism
[2019-07-22] MEDS: ALBUTEROL SULFATE/IPRATROPIUM 3 ML NEBU IH SCH (19:25)
[2019-07-22] MEDS ORDERED: MELATONIN 3,000 MCG TABLET PO SCH (21:00)
[2019-07-22] MEDS: FLUTICASONE PROPION/SALMETEROL 14 PUFF DISK.W.DEV IH SCH (22:01)
[2019-07-22] MEDS: GABAPENTIN 300 MG CAPSULE PO SCH (22:02)
[2019-07-22] MEDS: APIXABAN 5 MG TABLET PO SCH (22:04)
[2019-07-22] MEDS: FUROSEMIDE 40 MG TABLET PO SCH (22:04)
[2019-07-22] MEDS: guaiFENesin/DEXTROMETHORPHAN SYRUP PO PRN (22:13)
[2019-07-23] MEDS: ALBUTEROL SULFATE/IPRATROPIUM 3 ML NEBU IH SCH ×4 (01:15→18:09)
[2019-07-23 05:36] LABS: Albumin * 2.5 gm/dl (3.4-5.0); Anion Gap 7.7 mmol/L (6.8-13.8); BUN/Creatinine Ratio 15.7 (9.0-21.6); Bilirubin, Total 2.1 mg/dL (0.0-1.1); Ca. Corrected For Albumin 8.8 mg/dL (8.4-10.2); Calcium * 7.9 mg/dL (7.9-10.9); Potassium 3.7 mmol/L (3.4-4.6); Total Protein 6.5 gm/dL (6.2-8.2)
[2019-07-23 05:37] LABS: Hematocrit 45.1 % (42.0-52.0); Hemoglobin 13.9 gm/dL (13.5-18.0); Mean Cell Volume 95.1 fl (78-100); Mean Corpuscular Hemoglobin 29.3 pg (27-31); Mean Corpuscular Hgb Conc 30.8 g/dl (32-36); Mean Platelet Volume 9.6 fl (8-11.3); Neutrophil # 3.6 K/mm3 (1.3-6.0); Platelet Count 143 K/mm3 (150-450); Red Blood Count 4.74 M/mm3 (4.7-6.0); Red Cell Distribution Width 16.8 % (11.5-14.0); White Blood Count 5.8 K/mm3 (4.0-10.5)
[2019-07-23] MEDS: INSULIN LISPRO 100 UNITS/ML VIAL SC SCH ×3 (07:51→17:45)
[2019-07-23] MEDS: TAMSULOSIN HCL 0.4 MG CAP.SR.24H PO SCH (07:51)
[2019-07-23] MEDS: PANTOPRAZOLE SODIUM 20 MG TABLET.DR PO SCH (07:51)
[2019-07-23] MEDS: MINERAL OIL/PETROLATUM,WHITE 454 APPL JAR TP SCH (08:56)
[2019-07-23] MEDS: FLUTICASONE PROPION/SALMETEROL 14 PUFF DISK.W.DEV IH SCH ×2 (08:56→20:44)
[2019-07-23] MEDS: APIXABAN 5 MG TABLET PO SCH ×2 (08:56→20:47)
[2019-07-23] MEDS: ASPIRIN 81 MG TAB.CHEW PO SCH (08:56)
[2019-07-23] MEDS: FERROUS SULFATE 325 MG TABLET PO SCH ×3 (08:57→16:56)
[2019-07-23] MEDS: INSULIN GLARGINE,HUM.REC.ANLOG 100 UNITS/ML VIAL SC SCH (08:57)
[2019-07-23] MEDS: FINASTERIDE 5 MG TABLET PO SCH (08:59)
[2019-07-23] MEDS: GABAPENTIN 300 MG CAPSULE PO SCH ×2 (08:59→20:46)
[2019-07-23] MEDS: ESCITALOPRAM OXALATE 10 MG TAB PO SCH (08:59)
[2019-07-23] MEDS: METOPROLOL SUCCINATE 100 MG TABLET.SA PO SCH (09:00)
[2019-07-23] MEDS: FUROSEMIDE 40 MG TABLET PO SCH (09:05)
[2019-07-23] MEDS: FUROSEMIDE 80 MG TABLET PO SCH ×2 (09:06→20:46)
[2019-07-23] MEDS: TIOTROPIUM BROMIDE 5 CAP INHALER IH SCH (09:07)
--- NOTE | 2019-07-23 11:53 | PN ---
Subjective - Date and Time Seen Date: 07/23/19 Time: 08:25 Subjective Narrative: Paras Parr has had a uneventful night and is feeling better this morning. He still is coughing and gets dyspneic with minor exertion. His O2 sats are still only 90% on 2 L nasal cannula. He has quite a lot of edema. He has some abdominal distention, he has a positive HJR at 45 degrees, and his BNP was over 3000 on admission. All of these validate his congestive heart failure which is acute on chronic. He has very limited breath sounds in the right lateral chest but good breath sounds on the left. I do not hear any wheezing. There are some rhonchi in the right chest. He is sitting up in his bed at the time of exam and does not appear to be any distress. His color is pink and better than it was last evening. His laboratory work shows improved potassium up to 3.6. The CBC and white count remain normal. I reviewed the chest x-ray from admission which shows a right pleural effusion, possible empyema and atelectasis. He is afebrile. I have ordered a CT scan of the chest and results are pending. Clinically and radiographically he has pneumonia without fever or leukocytosis. He remains hypoxic on room air. Objective - Review of Systems Generalized/Overall Review: Reports: No Symptoms Reported EENTM: Reports: No Symptoms Reported Respiratory: Reports: Cough, Shortness of Breath, Other - Hypoxemic Cardiac: Reports: No Symptoms Reported Abdominal: Reports: No Symptoms Reported, Other - Abdomen distended Genitourinary Symptoms: Reports: No Symptoms Reported Musculoskeletal Complaints: Reports: Joint Pain Neurological: Reports: Weakness - With interval improvement from admission Skin: Reports: No Symptoms Reported, Change in Color - Color has improved since admission and is pink this morning Endocrine: Reports: No Symptoms Reported - Vitals Vitals: Last Vital Signs Temp 37 C 07/23/19 07:04 Pulse 88 07/23/19 09:06 Resp 18 07/23/19 07:04 BP 102/54 07/23/19 09:06 Pulse Ox 90 L 07/23/19 07:04 - Abnormal Lab Findings Abnormal Lab Findings: Abnormal Lab Results 07/22/19 07/22/19 07/23/19 Range/Units 11:50 11:50 05:10 MCHC 31.7 L 30.8 L (32-36) g/dl RDW 16.8 H 16.8 H (11.5-14.0) % Plt Count 142 L 143 L (150-450) K/mm3 Immature Gran % (Auto) 4.00 H 1.40 H (0.001-0.429) % Immature Gran # (Auto) 0.25 H 0.08 H (0.000-0.0310) K/mm3 Lymphocytes % 17.0 L (20-51) % Monocytes % 10.4 H 12.3 H (0.0-9) % Lymphocytes # 1.06 L 1.17 L (1.5-3.5) k/mm3 Carbon Dioxide 35.4 H (24-32.6) mmol/L Anion Gap 6.4 L (6.8-13.8) mmol/L Total Bilirubin 2.1 H (0.0-1.1) mg/dL ALT 8 L (19-67) U/L B-Natriuretic Peptide 3279 H (5-650) pg/mL Albumin 2.5 L (3.4-5.0) gm/dl 07/23/19 Range/Units 05:10 MCHC (32-36) g/dl RDW (11.5-14.0) % Plt Count (150-450) K/mm3 Immature Gran % (Auto) (0.001-0.429) % Immature Gran # (Auto) (0.000-0.0310) K/mm3 Lymphocytes % (20-51) % Monocytes % (0.0-9) % Lymphocytes # (1.5-3.5) k/mm3 Carbon Dioxide 34.0 H (24-32.6) mmol/L Anion Gap (6.8-13.8) mmol/L Total Bilirubin 2.1 H (0.0-1.1) mg/dL ALT 5 L (19-67) U/L B-Natriuretic Peptide (5-650) pg/mL Albumin 2.5 L (3.4-5.0) gm/dl - EKG/Xray Findings EKG: NSR EKG read: Reviewed by me XRAY: chest Interpretation: Reviewed by me - Exam Constitutional: Present: Alert, Oriented x3, Cooperative, Well developed, Well nourished, No distress ENT Exam: Present: normal ENT inspection, hearing grossly normal, pharynx normal Neck: Present: non-tender, full range of motion, supple, normal inspection, trachea midline, limited range of motion Breasts: Present: Exam deferred Respiratory: Present: chest non-tender, lungs clear, normal breath sounds, no respiratory distress, no accessory muscle use Cardiovascular/Chest: Present: normal peripheral pulses, regular rate, rhythm, no chest tenderness, no edema, no gallop, no JVD, no murmur, no rub Abdomen: Present: Normal bowel sounds, soft, nontender, nondistended, no rebound tenderness, no hepatospenomegaly, no masses, obese, distended /Rectal: Present: Exam deferred Extremity: Present: lower extremity edema, slow capillary refill Skin Exam: Present: other - Skin sores on the left lower extremity. There have been 4 or 5 of them recently all superficial but all weeping. No purulence. 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, motor weakness, sensory deficit - Both lower extremities Appearance: Present: appropriate appearance, appropriate insight, neat, no memory impairment Eye contact: Present: cooperative, good eye contact, normal speech Thoughts: Present: normal thought pattern, no apparent hallucination Assessment/Plan - Problems/Diagnosis (1) Pneumonia Problem: Acute Qualifiers: Pneumonia type: due to unspecified organism Laterality: right Lung location: lower lobe of lung Qualified Code(s): J18.1 - Lobar pneumonia, unspecified organism (2) Hypoxemia Problem: Acute (3) Grade II Diabetic Ulcer Problem: Chronic (4) Pulmonary embolism Problem: Resolved Qualifiers: Chronicity: chronic Acute cor pulmonale presence: with acute cor pulmonale (5) 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
[2019-07-23] MEDS: AZITHROMYCIN 250 MG TABLET PO SCH (12:01)
[2019-07-23] MEDS: ALBUTEROL SULFATE 2.5 MG/0.5 ML VIAL.NEB IH PRN ×2 (13:25→18:09)
[2019-07-23] MEDS: ACETYLCYSTEINE 100 MG/ML VIAL IH SCH (18:09)
[2019-07-23] MEDS ORDERED: ACETYLCYSTEINE 200 MG/ML VIAL IH SCH (19:00)
[2019-07-23] MEDS: MELATONIN 3,000 MCG TABLET PO SCH (20:45)
[2019-07-23] MEDS ORDERED: ACETYLCYSTEINE 100 MG/ML VIAL IH SCH (21:00)
[2019-07-24] MEDS: ALBUTEROL SULFATE/IPRATROPIUM 3 ML NEBU IH SCH ×4 (00:01→18:26)
[2019-07-24] MEDS: ACETYLCYSTEINE 100 MG/ML VIAL IH SCH ×2 (06:05→18:23)
[2019-07-24 06:14] LABS: Hematocrit 44.1 % (42.0-52.0); Hemoglobin 13.7 gm/dL (13.5-18.0); Mean Cell Volume 95.2 fl (78-100); Mean Corpuscular Hemoglobin 29.6 pg (27-31); Mean Corpuscular Hgb Conc 31.1 g/dl (32-36); Mean Platelet Volume 10.1 fl (8-11.3); Neutrophil % 66.6 % (42-75.0); Platelet Count 139 K/mm3 (150-450); Red Blood Count 4.63 M/mm3 (4.7-6.0); Red Cell Distribution Width 16.6 % (11.5-14.0); White Blood Count 5.9 K/mm3 (4.0-10.5)
[2019-07-24 06:17] LABS: Albumin * 2.5 gm/dl (3.4-5.0); BUN/Creatinine Ratio 14.5 (9.0-21.6); Bilirubin, Total 1.5 mg/dL (0.0-1.1); Ca. Corrected For Albumin 8.7 mg/dL (8.4-10.2); Calcium * 7.8 mg/dL (7.9-10.9); Carbon Dioxide 35.3 mmol/L (24-32.6); Potassium 3.3 mmol/L (3.4-4.6); Total Protein 6.8 gm/dL (6.2-8.2)
[2019-07-24] MEDS: TAMSULOSIN HCL 0.4 MG CAP.SR.24H PO SCH (08:06)
[2019-07-24] MEDS: INSULIN LISPRO 100 UNITS/ML VIAL SC SCH ×4 (08:07→17:49)
[2019-07-24] MEDS: FLUTICASONE PROPION/SALMETEROL 14 PUFF DISK.W.DEV IH SCH ×2 (08:08→20:36)
[2019-07-24] MEDS: PANTOPRAZOLE SODIUM 20 MG TABLET.DR PO SCH (08:08)
[2019-07-24] MEDS: MINERAL OIL/PETROLATUM,WHITE 454 APPL JAR TP SCH (08:09)
[2019-07-24] MEDS: APIXABAN 5 MG TABLET PO SCH ×2 (08:09→20:33)
[2019-07-24] MEDS: ASPIRIN 81 MG TAB.CHEW PO SCH (08:09)
[2019-07-24] MEDS: FERROUS SULFATE 325 MG TABLET PO SCH ×3 (08:09→17:48)
[2019-07-24] MEDS: INSULIN GLARGINE,HUM.REC.ANLOG 100 UNITS/ML VIAL SC SCH (08:10)
[2019-07-24] MEDS: FUROSEMIDE 80 MG TABLET PO SCH ×2 (08:10→20:33)
[2019-07-24] MEDS: FINASTERIDE 5 MG TABLET PO SCH (08:11)
[2019-07-24] MEDS: ESCITALOPRAM OXALATE 10 MG TAB PO SCH (08:11)
[2019-07-24] MEDS: GABAPENTIN 300 MG CAPSULE PO SCH ×2 (08:11→20:36)
[2019-07-24] MEDS: AZITHROMYCIN 250 MG TABLET PO SCH (08:12)
[2019-07-24] MEDS: METOPROLOL SUCCINATE 100 MG TABLET.SA PO SCH (08:12)
[2019-07-24] MEDS: TIOTROPIUM BROMIDE 5 CAP INHALER IH SCH (08:12)
[2019-07-24] MEDS: POTASSIUM CHLORIDE 10 MEQ TABLET.SA PO SCH ×2 (10:07→17:48)
[2019-07-24] MEDS ORDERED: DIATRIZOATE MEGLUMINE, SODIUM 30 ML BTL PO ONE (11:00)
[2019-07-24] MEDS: ALBUTEROL SULFATE 2.5 MG/0.5 ML VIAL.NEB IH PRN ×2 (12:50→15:42)
[2019-07-24] MEDS: MELATONIN 3,000 MCG TABLET PO SCH (20:34)
[2019-07-25] MEDS: ALBUTEROL SULFATE/IPRATROPIUM 3 ML NEBU IH SCH ×4 (00:58→18:12)
[2019-07-25] MEDS: guaiFENesin/DEXTROMETHORPHAN SYRUP PO PRN (03:34)
[2019-07-25] MEDS: ACETYLCYSTEINE 100 MG/ML VIAL IH SCH ×2 (06:00→18:09)
[2019-07-25] MEDS: INSULIN LISPRO 100 UNITS/ML VIAL SC SCH ×3 (07:28→17:08)
[2019-07-25] MEDS: FLUTICASONE PROPION/SALMETEROL 14 PUFF DISK.W.DEV IH SCH ×2 (08:01→20:39)
[2019-07-25] MEDS: TAMSULOSIN HCL 0.4 MG CAP.SR.24H PO SCH (08:01)
[2019-07-25] MEDS: PANTOPRAZOLE SODIUM 20 MG TABLET.DR PO SCH (08:01)
[2019-07-25] MEDS: ASPIRIN 81 MG TAB.CHEW PO SCH (08:02)
[2019-07-25] MEDS: APIXABAN 5 MG TABLET PO SCH ×2 (08:02→20:40)
[2019-07-25] MEDS: MINERAL OIL/PETROLATUM,WHITE 454 APPL JAR TP SCH (08:04)
[2019-07-25] MEDS: FERROUS SULFATE 325 MG TABLET PO SCH ×3 (08:04→17:06)
[2019-07-25] MEDS: POTASSIUM CHLORIDE 10 MEQ TABLET.SA PO SCH ×2 (08:04→17:06)
[2019-07-25] MEDS: INSULIN GLARGINE,HUM.REC.ANLOG 100 UNITS/ML VIAL SC SCH (08:04)
[2019-07-25] MEDS: METOPROLOL SUCCINATE 100 MG TABLET.SA PO SCH (08:05)
[2019-07-25] MEDS: ESCITALOPRAM OXALATE 10 MG TAB PO SCH (08:05)
[2019-07-25] MEDS: TIOTROPIUM BROMIDE 5 CAP INHALER IH SCH (08:05)
[2019-07-25] MEDS: GABAPENTIN 300 MG CAPSULE PO SCH ×2 (08:05→20:42)
[2019-07-25] MEDS: FINASTERIDE 5 MG TABLET PO SCH (08:05)
[2019-07-25] MEDS: AZITHROMYCIN 250 MG TABLET PO SCH (08:06)
[2019-07-25] MEDS: FUROSEMIDE 80 MG TABLET PO SCH ×2 (09:14→20:41)
--- NOTE | 2019-07-25 15:42 | PN ---
Subjective - Date and Time Seen Date: 07/24/19 Time: 08:00 Subjective Narrative: Paras has had an eventful night and that he has had increased shortness of breath and required more oxygen to keep his sats above 90%. He did not have much appetite last evening or this morning. He feels like he is struggling quite a lot. I have reviewed the CT chest and the CT abdomen. There is a lot of edema in the abdominal wall laterally to posterior. He is in a dependent po sition at all times and so fluid tends to collect there. There is no acute process going on in the abdomen. The CT chest shows mucous plugging, pleural effusion, and some pericolic fluid. Pneumonia cannot be ruled out but he is afebrile and white count is normal. Objective - Review of Systems Generalized/Overall Review: Reports: Weakness, Malaise, Fatigue. Denies: Chills, Fever, Diaphoresis EENTM: Reports: No Symptoms Reported Respiratory: Reports: No Symptoms Reported Cardiac: Reports: No Symptoms Reported Abdominal: Reports: Other - But has anorexia. Denies: Nausea, Vomiting, Abdominal Pain Genitourinary Symptoms: Reports: No Symptoms Reported Musculoskeletal Complaints: Reports: No Symptoms Reported Neurological: Reports: No Symptoms Reported Skin: Reports: No Symptoms Reported Endocrine: Reports: No Symptoms Reported - Vitals Vitals: Last Vital Signs Temp 36.0 C 07/25/19 14:31 Pulse 81 07/25/19 15:03 Resp 24 H 07/25/19 14:31 BP 107/55 07/25/19 14:31 Pulse Ox 93 07/25/19 14:31 - EKG/Xray Findings XRAY: chest - CT and abdominal CT - Exam Constitutional: Present: Alert, Oriented x3, Cooperative, Well developed, Well nourished, No distress ENT Exam: Present: normal ENT inspection, hearing grossly normal, pharynx normal, TMs normal, hard of hearing Neck: Present: non-tender, full range of motion, supple, normal inspection Respiratory: Present: chest non-tender, other - No breath sounds on the right chest scattered rhonchi in the left chest. Loose minimally productive cough. Cardiovascular/Chest: Present: normal peripheral pulses, regular rate, rhythm, no chest tenderness, edema - Of the abdominal wall from the lateral aspect to t he posterior spine area. Edema in the legs is minimal today. Abdomen: Present: Normal bowel sounds, soft, nontender, obese /Rectal: Present: Exam deferred Extremity: Present: normal range of motion, non-tender, normal inspection, no pedal edema, no calf tenderness, normal capillary refill Skin Exam: Present: normal color, warm/dry, no cyanosis Lymphatic: Present: no adenopathy Neurologic: Present: web development director II-XII nml as tested, motor weakness, sensory deficit Appearance: Present: appropriate appearance, appropriate insight, neat, no memory impairment Eye contact: Present: cooperative, good eye contact, normal speech Thoughts: Present: normal thought pattern, no apparent hallucination Assessment/Plan Plan Narrative: 1. Continue RT treatments including Mucomyst 2. Continue guaifenesin 3. Continue RT treatments 4. Continue the Venecia device 5. 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
[2019-07-25] MEDS ORDERED: FUROSEMIDE 10 MG/ML VIAL IV ONE (16:18)
--- NOTE | 2019-07-25 16:23 | PN ---
Subjective - Date and Time Seen Date: 07/25/19 Time: 14:00 Subjective Narrative: Paras states he feels he is feeling some better today and not laboring so much to breathe. He still coughing quite a lot and it does sound loose. He says he is coughed up a little bit of mucus this morning. I have reviewed the CT scan of the chest and abdomen with Dr. Regan concerning possibility doing a therapeutic bronchoscopy. He did not feel that he could get a lot of the mucus out especially with the scope that we have here. Apparently is a big deal to do a bronchoscopy here because they require a positive pressure room and everyone has to wear space suits etc. to do it. Therefore have elected to keep him here through the weekend and continue doing breathing treatments with Mucomyst albuterol, continue guaifenesin as a mucolytic, continue respiratory therapy, add postural drainage and thumping and then reassess on Sunday to see if interventional bronchoscopy is still needed. If so then I will probably transfer him where he will have a multimedia authoring specialist to take care of this. He does have a lot of dependent edema collected around the abdomen posteriorly. His blood pressure has been low at times however and systolic is averaging about 103-107 systolic. Objective - Review of Systems Generalized/Overall Review: Reports: Weakness, Malaise, Fatigue. Denies: Chills, Fever EENTM: Reports: No Symptoms Reported Respiratory: Reports: Cough, Shortness of Breath, Wheezing Cardiac: Reports: No Symptoms Reported, Edema. Denies: Palpitations, Syncope Abdominal: Reports: No Symptoms Reported, Other - Anorexia has improved and he is eating better. Genitourinary Symptoms: Reports: No Symptoms Reported Musculoskeletal Complaints: Reports: No Symptoms Reported Neurological: Reports: No Symptoms Reported Skin: Reports: No Symptoms Reported Endocrine: Reports: No Symptoms Reported - Vitals Vitals: Last Vital Signs Temp 36.0 C 07/25/19 14:31 Pulse 81 07/25/19 15:03 Resp 24 H 07/25/19 14:31 BP 107/55 07/25/19 14:31 Pulse Ox 93 07/25/19 14:31 - EKG/Xray Findings XRAY: CT of the abdomen and chest reviewed with Dr. Regan Interpretation: Reviewed by me - Exam Constitutional: Present: Alert, Oriented x3, Cooperative, Well developed, Well nourished, Mild distress, Elderly, Morbidly obese ENT Exam: Present: normal ENT inspection, hearing grossly normal, pharynx normal, TMs normal Neck: Present: non-tender, limited range of motion Breasts: Present: Exam deferred Respiratory: Present: other - Minimal breath sounds in the right chest today but is the first time of her any breath sounds for several days. Scattered rhonchi and wheezes in the left lung. Cardiovascular/Chest: Present: normal peripheral pulses, regular rate, rhythm, no chest tenderness, edema Abdomen: Present: Normal bowel sounds, soft, nontender, nondistended, no rebound tenderness, no hepatospenomegaly, no masses, obese /Rectal: Present: Exam deferred Extremity: Present: non-tender, lower extremity edema Skin Exam: Present: other - Unchanged Neurologic: Present: fuel oil truck driver II-XII nml as tested Appearance: Present: appropriate appearance, appropriate insight, neat, no memory impairment Eye contact: Present: cooperative, good eye contact, normal speech Thoughts: Present: normal thought pattern, no apparent hallucination Assessment/Plan Plan Narrative: 1. Continue care through the weekend as per current orders 2. Diurese with 40 mg of Lasix IV push now 3. Morning lab with CBC CMP also do an EKG in the morning 4. Respiratory therapy to start using their electric thumper for postural drainage and thumping.. 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
[2019-07-25] MEDS: MELATONIN 3,000 MCG TABLET PO SCH (20:41)
[2019-07-26] MEDS: ALBUTEROL SULFATE/IPRATROPIUM 3 ML NEBU IH SCH ×4 (00:10→18:08)
[2019-07-26] MEDS: ACETYLCYSTEINE 100 MG/ML VIAL IH SCH (06:10)
[2019-07-26 06:16] LABS: Hematocrit 41.8 % (42.0-52.0); Mean Cell Volume 95.4 fl (78-100); Mean Corpuscular Hemoglobin 29.7 pg (27-31); Mean Corpuscular Hgb Conc 31.1 g/dl (32-36); Mean Platelet Volume 9.7 fl (8-11.3); Neutrophil # 3.8 K/mm3 (1.3-6.0); Neutrophil % 69.1 % (42-75.0); Platelet Count 139 K/mm3 (150-450); Red Blood Count 4.38 M/mm3 (4.7-6.0); Red Cell Distribution Width 16.2 % (11.5-14.0); White Blood Count 5.5 K/mm3 (4.0-10.5)
[2019-07-26 06:35] LABS: Albumin * 2.4 gm/dl (3.4-5.0); Anion Gap 5.7 mmol/L (6.8-13.8); BUN/Creatinine Ratio 10.4 (9.0-21.6); Bilirubin, Total 1.4 mg/dL (0.0-1.1); Ca. Corrected For Albumin 9.3 mg/dL (8.4-10.2); Calcium * 8.3 mg/dL (7.9-10.9); Carbon Dioxide 37.1 mmol/L (24-32.6); Potassium 3.8 mmol/L (3.4-4.6); Total Protein 6.7 gm/dL (6.2-8.2)
[2019-07-26] MEDS: PANTOPRAZOLE SODIUM 20 MG TABLET.DR PO SCH (07:16)
[2019-07-26] MEDS: TAMSULOSIN HCL 0.4 MG CAP.SR.24H PO SCH (07:16)
[2019-07-26] MEDS: INSULIN LISPRO 100 UNITS/ML VIAL SC SCH ×3 (07:16→17:23)
[2019-07-26] MEDS: AZITHROMYCIN 250 MG TABLET PO SCH (08:26)
[2019-07-26] MEDS: GABAPENTIN 300 MG CAPSULE PO SCH ×2 (08:26→20:25)
[2019-07-26] MEDS: METOPROLOL SUCCINATE 100 MG TABLET.SA PO SCH (08:26)
[2019-07-26] MEDS: FLUTICASONE PROPION/SALMETEROL 14 PUFF DISK.W.DEV IH SCH ×2 (08:26→20:23)
[2019-07-26] MEDS: APIXABAN 5 MG TABLET PO SCH ×2 (08:26→20:23)
[2019-07-26] MEDS: FUROSEMIDE 80 MG TABLET PO SCH ×3 (08:27→20:24)
[2019-07-26] MEDS: ESCITALOPRAM OXALATE 10 MG TAB PO SCH (08:27)
[2019-07-26] MEDS: POTASSIUM CHLORIDE 10 MEQ TABLET.SA PO SCH ×2 (08:27→17:23)
[2019-07-26] MEDS: FERROUS SULFATE 325 MG TABLET PO SCH ×3 (08:27→17:23)
[2019-07-26] MEDS: FINASTERIDE 5 MG TABLET PO SCH (08:27)
[2019-07-26] MEDS: ASPIRIN 81 MG TAB.CHEW PO SCH (08:27)
[2019-07-26] MEDS: MINERAL OIL/PETROLATUM,WHITE 454 APPL JAR TP SCH (08:28)
[2019-07-26] MEDS: INSULIN GLARGINE,HUM.REC.ANLOG 100 UNITS/ML VIAL SC SCH (08:29)
[2019-07-26] MEDS: TIOTROPIUM BROMIDE 5 CAP INHALER IH SCH (08:30)
--- NOTE | 2019-07-26 10:08 | PN ---
Subjective - Date and Time Seen Date: 07/26/19 Time: 08:30 Subjective Narrative: Paras is feeling a little better again today and feels that his breathing is about the same. He was mobilizing some mucus yesterday but has not noticed moving any today. He continues to cough but it is mostly nonproductive. I reviewed with him results of my conversation with Dr. Regan and that he did not feel he would be able to get enough mucus out to justify the procedure being done here. Therefore the plan is to continue our current therapy trying to mobilize the mucus and if he is unimproved by Sunday then I will consider transferring him to a tertiary facility for pulmonology management. He is in agreement with that. Objective - Review of Systems Generalized/Overall Review: Reports: Weakness, Fatigue EENTM: Reports: No Symptoms Reported Respiratory: Reports: Cough, Shortness of Breath - Still oxygen dependent Cardiac: Reports: No Symptoms Reported Abdominal: Reports: No Symptoms Reported Genitourinary Symptoms: Reports: No Symptoms Reported Musculoskeletal Complaints: Reports: No Symptoms Reported Neurological: Reports: No Symptoms Reported Skin: Reports: Other - Unchanged Endocrine: Reports: No Symptoms Reported - Vitals Vitals: Last Vital Signs Temp 36.5 C 07/26/19 06:31 Pulse 106 H 07/26/19 06:31 Resp 22 H 07/26/19 06:31 BP 103/52 07/26/19 06:31 Pulse Ox 94 07/26/19 06:31 - Abnormal Lab Findings Abnormal Lab Findings: Abnormal Lab Results 07/26/19 07/26/19 Range/Units 05:50 05:50 RBC 4.38 L (4.7-6.0) M/mm3 Hgb 13.0 L (13.5-18.0) gm/dL Hct 41.8 L (42.0-52.0) % MCHC 31.1 L (32-36) g/dl RDW 16.2 H (11.5-14.0) % Plt Count 139 L (150-450) K/mm3 Immature Gran % (Auto) 1.80 H (0.001-0.429) % Immature Gran # (Auto) 0.10 H (0.000-0.0310) K/mm3 Lymphocytes % 16.1 L (20-51) % Monocytes % 10.1 H (0.0-9) % Lymphocytes # 0.88 L (1.5-3.5) k/mm3 Carbon Dioxide 37.1 H (24-32.6) mmol/L Anion Gap 5.7 L (6.8-13.8) mmol/L Total Bilirubin 1.4 H (0.0-1.1) mg/dL ALT 5 L (19-67) U/L Albumin 2.4 L (3.4-5.0) gm/dl - EKG/Xray Findings EKG: atrial fibrillation EKG read: Interp. by me Interpretation: Reviewed by me - Exam Constitutional: Present: Alert, Oriented x3, Cooperative, Well developed, Well nourished, No distress, Elderly, Obese ENT Exam: Present: normal ENT inspection, hearing grossly normal, pharynx normal Neck: Present: non-tender, full range of motion, supple, normal inspection, trachea midline, other - HJR is negative today. Breasts: Present: Exam deferred Respiratory: Present: decreased breath sounds - In the right chest, rhonchi, wheezing Cardiovascular/Chest: Present: normal peripheral pulses, tachycardia, irregularly irregular, edema - In the thighs and in the abdominal wall in the posterior one half bilaterally. Abdomen: Present: Normal bowel sounds, soft, nontender, nondistended, no rebound tenderness, no hepatospenomegaly, no masses, obese /Rectal: Present: Exam deferred Extremity: Present: no pedal edema, normal capillary refill, lower extremity edema - Especially in the right thigh Skin Exam: Present: normal color, other - Superficial small ulcerations on the left lower leg anterolaterally Lymphatic: Present: no adenopathy Neurologic: Present: retail sales clerk II-XII nml as tested, no motor/sensory deficits, alert, normal mood/affect, oriented x 3 Appearance: Present: appropriate appearance, appropriate insight, neat, no memory impairment Eye contact: Present: cooperative, good eye contact, normal speech Thoughts: Present: normal thought pattern, no apparent hallucination Assessment/Plan Plan Narrative: 1. Continue RT treatments with Mucomyst and albuterol 2. Continue Venecia usage every 2 hours 3. Continue guaifenesin 600 mg twice daily 4. He has had a lot of diuresis from the IV and p.o. Lasix he received last evening so I will skip this morning's dose 5. Withdrawing metoprolol has led to atrial fib and RVR and so I will restart the metoprolol this morning. 6. Continue to monitor blood pressure. This morning's is 103/70. 7. Consider repeating CT chest Sunday for comparison to see if the mucus plugging is resolving any. If not, then I will consider transferring to a clam grader at a tertiary facility. 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
[2019-07-26] MEDS: ALBUTEROL SULFATE 2.5 MG/0.5 ML VIAL.NEB IH PRN ×2 (13:28→18:08)
[2019-07-26] MEDS: ACETYLCYSTEINE 200 MG/ML VIAL IH SCH (18:09)
[2019-07-26] MEDS: MELATONIN 3,000 MCG TABLET PO SCH (20:24)
[2019-07-27] MEDS: ALBUTEROL SULFATE/IPRATROPIUM 3 ML NEBU IH SCH ×6 (01:28→18:16)
[2019-07-27] MEDS: ALBUTEROL SULFATE 2.5 MG/0.5 ML VIAL.NEB IH PRN ×2 (05:32→18:16)
[2019-07-27] MEDS: ACETYLCYSTEINE 200 MG/ML VIAL IH SCH ×4 (05:32→18:15)
[2019-07-27 06:01] LABS: Hematocrit 43.2 % (42.0-52.0); Hemoglobin 13.3 gm/dL (13.5-18.0); Mean Cell Volume 95.4 fl (78-100); Mean Corpuscular Hemoglobin 29.4 pg (27-31); Mean Corpuscular Hgb Conc 30.8 g/dl (32-36); Mean Platelet Volume 9.8 fl (8-11.3); Neutrophil # 3.9 K/mm3 (1.3-6.0); Neutrophil % 70.4 % (42-75.0); Platelet Count 134 K/mm3 (150-450); Red Blood Count 4.53 M/mm3 (4.7-6.0); Red Cell Distribution Width 16.3 % (11.5-14.0); White Blood Count 5.5 K/mm3 (4.0-10.5)
[2019-07-27] MEDS: TAMSULOSIN HCL 0.4 MG CAP.SR.24H PO SCH (07:35)
[2019-07-27] MEDS: PANTOPRAZOLE SODIUM 20 MG TABLET.DR PO SCH (07:35)
[2019-07-27] MEDS: INSULIN LISPRO 100 UNITS/ML VIAL SC SCH ×3 (07:35→17:18)
[2019-07-27] MEDS: ASPIRIN 81 MG TAB.CHEW PO SCH (09:10)
[2019-07-27] MEDS: FLUTICASONE PROPION/SALMETEROL 14 PUFF DISK.W.DEV IH SCH ×2 (09:10→21:00)
[2019-07-27] MEDS: MINERAL OIL/PETROLATUM,WHITE 454 APPL JAR TP SCH (09:11)
[2019-07-27] MEDS: INSULIN GLARGINE,HUM.REC.ANLOG 100 UNITS/ML VIAL SC SCH (09:11)
[2019-07-27] MEDS: FERROUS SULFATE 325 MG TABLET PO SCH ×3 (09:11→17:17)
[2019-07-27] MEDS: APIXABAN 5 MG TABLET PO SCH ×2 (09:11→21:01)
[2019-07-27] MEDS: POTASSIUM CHLORIDE 10 MEQ TABLET.SA PO SCH ×2 (09:11→17:17)
[2019-07-27] MEDS: FUROSEMIDE 80 MG TABLET PO SCH ×2 (09:12→21:01)
[2019-07-27] MEDS: ESCITALOPRAM OXALATE 10 MG TAB PO SCH (09:12)
[2019-07-27] MEDS: GABAPENTIN 300 MG CAPSULE PO SCH ×2 (09:13→21:01)
[2019-07-27] MEDS: TIOTROPIUM BROMIDE 5 CAP INHALER IH SCH (09:13)
[2019-07-27] MEDS: FINASTERIDE 5 MG TABLET PO SCH (09:13)
[2019-07-27] MEDS: METOPROLOL SUCCINATE 100 MG TABLET.SA PO SCH (09:13)
[2019-07-27 10:36] LABS: Albumin * 2.3 gm/dl (3.4-5.0); Anion Gap 4.4 mmol/L (6.8-13.8); Bilirubin, Total 1.3 mg/dL (0.0-1.1); Carbon Dioxide 33.7 mmol/L (24-32.6); Potassium 4.1 mmol/L (3.4-4.6); Total Protein 6.6 gm/dL (6.2-8.2)
--- NOTE | 2019-07-27 14:47 | PN ---
Subjective - Date and Time Seen Date: 07/27/19 Time: 10:10 Objective - Review of Systems Generalized/Overall Review: Reports: Weakness EENTM: Reports: No Symptoms Reported Respiratory: Reports: Cough, Shortness of Breath Cardiac: Reports: No Symptoms Reported Abdominal: Reports: No Symptoms Reported Genitourinary Symptoms: Reports: No Symptoms Reported Musculoskeletal Complaints: Reports: No Symptoms Reported Neurological: Reports: No Symptoms Reported Skin: Reports: No Symptoms Reported, Other - Superficial open sores on the left lower extremity Endocrine: Reports: No Symptoms Reported - Vitals Vitals: Last Vital Signs Temp 36.4 C 07/27/19 13:00 Pulse 88 07/27/19 13:15 Resp 18 07/27/19 13:15 BP 111/68 07/27/19 13:00 Pulse Ox 96 07/27/19 13:05 - Abnormal Lab Findings Abnormal Lab Findings: Abnormal Lab Results 07/27/19 07/27/19 Range/Units 06:00 06:00 RBC 4.53 L (4.7-6.0) M/mm3 Hgb 13.3 L (13.5-18.0) gm/dL MCHC 30.8 L (32-36) g/dl RDW 16.3 H (11.5-14.0) % Plt Count 134 L (150-450) K/mm3 Immature Gran % (Auto) 3.10 H (0.001-0.429) % Immature Gran # (Auto) 0.17 H (0.000-0.0310) K/mm3 Lymphocytes % 12.7 L (20-51) % Monocytes % 9.8 H (0.0-9) % Eosinophils % 3.1 H (0.0-3.0) % Lymphocytes # 0.70 L (1.5-3.5) k/mm3 Sodium 131 L (132-142) mmol/L Carbon Dioxide 33.7 H (24-32.6) mmol/L Anion Gap 4.4 L (6.8-13.8) mmol/L Random Glucose 121 H (70-110) mg/dL Total Bilirubin 1.3 H (0.0-1.1) mg/dL ALT 8 L (19-67) U/L Albumin 2.3 L (3.4-5.0) gm/dl - Exam Constitutional: Present: Alert, Oriented x3, Cooperative, Well developed, Well nourished, No distress ENT Exam: Present: normal ENT inspection, hearing grossly normal, pharynx normal, TMs normal Neck: Present: non-tender, full range of motion, supple Breasts: Present: Exam deferred, Nontender Respiratory: Present: chest non-tender, lungs clear, normal breath sounds, no re spiratory distress Cardiovascular/Chest: Present: normal peripheral pulses, regular rate, rhythm, no chest tenderness, edema Abdomen: Present: Normal bowel sounds, soft, nontender, nondistended, no rebound tenderness, no hepatospenomegaly, no masses, obese /Rectal: Present: Exam deferred, External genitalia normal Extremity: Present: normal range of motion, non-tender, normal inspection Skin Exam: Present: normal color, warm/dry, other - Open superficial sores on the left lower extremity Neurologic: Present: food service specialist II-XII nml as tested, no motor/sensory deficits, alert, normal mood/affect, oriented x 3 Appearance: Present: appropriate appearance, appropriate insight, neat, no memory impairment Eye contact: Present: cooperative, good eye contact, normal speech Thoughts: Present: normal thought pattern, no apparent hallucination Assessment/Plan Plan Narrative: 1. Continue IV antibiotics 2. Continue respiratory therapy 3. Continue postural drainage and thumping 4. Continue mucolytic's 5. If improved to room air tomorrow he can be dismissed to go back to the group home. If not then I will speak with the installation engineer and see if the bronchoscopy needs to be done urgently or can wait a few days 6. Consider repeating CT chest to see if there is any resolution of the mucus plugging. 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
[2019-07-27] MEDS: MELATONIN 3,000 MCG TABLET PO SCH (21:05)
[2019-07-28] MEDS: ALBUTEROL SULFATE/IPRATROPIUM 3 ML NEBU IH SCH ×3 (01:25→13:20)
[2019-07-28] MEDS: ALBUTEROL SULFATE 2.5 MG/0.5 ML VIAL.NEB IH PRN (06:06)
[2019-07-28] MEDS: ACETYLCYSTEINE 200 MG/ML VIAL IH SCH ×2 (06:07→13:20)
[2019-07-28] MEDS: INSULIN LISPRO 100 UNITS/ML VIAL SC SCH ×2 (06:58→11:46)
[2019-07-28] MEDS: PANTOPRAZOLE SODIUM 20 MG TABLET.DR PO SCH (06:58)
[2019-07-28] MEDS: TAMSULOSIN HCL 0.4 MG CAP.SR.24H PO SCH (06:58)
[2019-07-28] MEDS: ASPIRIN 81 MG TAB.CHEW PO SCH (08:52)
[2019-07-28] MEDS: FLUTICASONE PROPION/SALMETEROL 14 PUFF DISK.W.DEV IH SCH (08:52)
[2019-07-28] MEDS: FINASTERIDE 5 MG TABLET PO SCH (08:52)
[2019-07-28] MEDS: METOPROLOL SUCCINATE 100 MG TABLET.SA PO SCH (08:53)
[2019-07-28] MEDS: FUROSEMIDE 80 MG TABLET PO SCH (08:53)
[2019-07-28] MEDS: POTASSIUM CHLORIDE 10 MEQ TABLET.SA PO SCH (08:53)
[2019-07-28] MEDS: FERROUS SULFATE 325 MG TABLET PO SCH (08:54)
[2019-07-28] MEDS: GABAPENTIN 300 MG CAPSULE PO SCH (08:54)
[2019-07-28] MEDS: ESCITALOPRAM OXALATE 10 MG TAB PO SCH (08:54)
[2019-07-28] MEDS: APIXABAN 5 MG TABLET PO SCH (08:54)
[2019-07-28] MEDS: INSULIN GLARGINE,HUM.REC.ANLOG 100 UNITS/ML VIAL SC SCH (08:55)
[2019-07-28] MEDS: TIOTROPIUM BROMIDE 5 CAP INHALER IH SCH (08:55)
[2019-07-28] MEDS: MINERAL OIL/PETROLATUM,WHITE 454 APPL JAR TP SCH (09:10)
--- NOTE | 2019-07-28 11:43 | DS ---
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 Problem: Acute (5) Hypertension Problem: Chronic Qualifiers: Hypertension type: essential hypertension (6) Type 2 diabetes mellitus Problem: Chronic Qualifiers: Diabetes mellitus exterminator helper insulin use: with exterminator helper use Diabetes mellitus complication status: with circulatory complication Diabetes mellitus complication detail: with other circulatory complications Qualified Code(s): E11.59 - Type 2 diabetes mellitus with other circulatory complications; Z79.4 - bed bug exterminator (current) use of insulin (7) Mucus plugging of bronchi Problem: Acute Date of Discharge:: 07/28/19 Description of Stay: Paras Parr is a 78-year-old gentleman who resides at the [facility] and is well-known to me. He became short of breath with coughing and fever at the long term. I had him brought to the ER for evaluation and he was not moving any air in the right lung that one could auscultate. Chest x- ray and CT scan shows pneumonia, pleural effusion, and severe mucous plugging of the right lung. He was admitted. His treatment is consisted of IV antibiotics, respiratory therapy with Mucomyst 4 times daily and albuterol every 4 as needed, guaifenesin 600 mg twice daily, postural drainage and thumping, and use of a Venecia. He has been oxygen dependent since admission. We have checked him twice this morning and both times he desaturates down into the low 80s. Therefore he will require oxygen. I debated about doing a therapeutic bron choscopy here and spoke with Dr. Regan about that. We reviewed his CAT scan together and he did not believe with the equipment we have here that he could offer Paras much benefit. Therefore I have continued to treat him medically through the weekend. He has developed some rhonchi and a bit of air movement in the right lung in the past 3 days and I believe it is the best is been this morning. He is not had any more fever or chilling. His cough has been minimally productive. He will need to continue respiratory therapy treatments and other modalities as above. I will arrange for him to have oxygen / and also arrange for a pulmonology consult with Dr. Rossi. I will send a doc halo note to introduce Mr. Parr to him. His disposition is improved. His prognosis is fair. He will be returned to the [facility] today. Procedures Performed: none Results and Findings: Lab Pending Results 07/22/19 11:50: WBC 6.2, RBC 4.81, Hgb 14.3, Hct 45.1, MCV 93.8, MCH 29.7, MCHC 31.7 L, RDW 16.8 H, Plt Count 142 L, MPV 9.5, Immature Gran % (Auto) 4.00 H, Immature Gran # (Auto) 0.25 H, Neutrophils % 66.2, Lymphocytes % 17.0 L, Monocytes % 10.4 H, Eosinophils % 1.8, Basophils % 0.6, Nucleated RBC % 0.0, Neutrophils # 4.1, Lymphocytes # 1.06 L, Monocytes # 0.7, Eosinophils # 0.1, Absolute Basophils 0.0 07/22/19 11:50: Sodium 138, Plasma Sodium 138, Potassium 3.8, Chloride 100, Carbon Dioxide 35.4 H, Anion Gap 6.4 L, BUN 15, Creatinine 1.00, Est GFR (Non-Af Amer) 77 D, BUN/Creatinine Ratio 15.0, Random Glucose 104, Calcium 8.4, Calcium Adj for Albumin 9.3, Total Bilirubin 2.1 H, AST 18, ALT 8 L, Alkaline Phosphatase 79, Troponin I Less than 0.017, B-Natriuretic Peptide 3279 H, Total Protein 6.6, Albumin 2.5 L 07/22/19 11:50: Lactic Acid, Venous 1.5 07/23/19 05:10: WBC 5.8, RBC 4.74, Hgb 13.9, Hct 45.1, MCV 95.1, MCH 29.3, MCHC 30.8 L, RDW 16.8 H, Plt Count 143 L, MPV 9.6, Immature Gran % (Auto) 1.40 H, Immature Gran # (Auto) 0.08 H, Neutrophils % 63.0, Lymphocytes % 20.3, Monocytes % 12.3 H, Eosinophils % 2.3, Basophils % 0.7, Nucleated RBC % 0.0, Neutrophils # 3.6, Lymphocytes # 1.17 L, Monocytes # 0.7, Eosinophils # 0.1, Absolute Basophils 0.0 07/23/19 05:10: Sodium 140, Plasma Sodium 140, Potassium 3.7, Chloride 102, Carbon Dioxide 34.0 H, Anion Gap 7.7, BUN 14, Creatinine 0.89, Est GFR (Non-Af Amer) 88, BUN/Creatinine Ratio 15.7, Random Glucose 86, Calcium 7.9, Calcium Adj for Albumin 8.8, Total Bilirubin 2.1 H, AST 17, ALT 5 L, Alkaline Phosphatase 72, Total Protein 6.5, Albumin 2.5 L 07/24/19 05:28: WBC 5.9, RBC 4.63 L, Hgb 13.7, Hct 44.1, MCV 95.2, MCH 29.6, MCHC 31.1 L, RDW 16.6 H, Plt Count 139 L, MPV 10.1, Immature Gran % (Auto) 1.20 H, Immature Gran # (Auto) 0.07 H, Neutrophils % 66.6, Lymphocytes % 17.3 L, Monocytes % 12.3 H, Eosinophils % 1.9, Basophils % 0.7, Nucleated RBC % 0.0, Neutrophils # 4.0, Lymphocytes # 1.03 L, Monocytes # 0.7, Eosinophils # 0.1, Absolute Basophils 0.0 07/24/19 05:28: Sodium 138, Plasma Sodium 138, Potassium 3.3 L, Chloride 100, Carbon Dioxide 35.3 H, Anion Gap 6.0 L, BUN 11, Creatinine 0.76, Est GFR (Non-Af Amer) 105, BUN/Creatinine Ratio 14.5, Random Glucose 111 H, Calcium 7.8 L, Calcium Adj for Albumin 8.7, Total Bilirubin 1.5 H, AST 17, ALT 7 L, Alkaline Phosphatase 76, Total Protein 6.8, Albumin 2.5 L 07/26/19 05:50: WBC 5.5, RBC 4.38 L, Hgb 13.0 L, Hct 41.8 L, MCV 95.4, MCH 29.7, MCHC 31.1 L, RDW 16.2 H, Plt Count 139 L, MPV 9.7, Immature Gran % (Auto) 1.80 H, Immature Gran # (Auto) 0.10 H, Neutrophils % 69.1, Lymphocytes % 16.1 L, M onocytes % 10.1 H, Eosinophils % 2.0, Basophils % 0.9, Nucleated RBC % 0.0, Neutrophils # 3.8, Lymphocytes # 0.88 L, Monocytes # 0.6, Eosinophils # 0.1, Absolute Basophils 0.1 07/26/19 05:50: Sodium 138, Plasma Sodium 138, Potassium 3.8, Chloride 99, Carbon Dioxide 37.1 H, Anion Gap 5.7 L, BUN 7, Creatinine 0.67, Est GFR (Non-Af Amer) 122, BUN/Creatinine Ratio 10.4, Random Glucose 99, Calcium 8.3, Calcium Adj for Albumin 9.3, Total Bilirubin 1.4 H, AST 16, ALT 5 L, Alkaline Phosphatase 67, Total Protein 6.7, Albumin 2.4 L 07/27/19 06:00: WBC 5.5, RBC 4.53 L, Hgb 13.3 L, Hct 43.2, MCV 95.4, MCH 29.4, MCHC 30.8 L, RDW 16.3 H, Plt Count 134 L, MPV 9.8, Immature Gran % (Auto) 3.10 H, Immature Gran # (Auto) 0.17 H, Neutrophils % 70.4, Lymphocytes % 12.7 L, Monocytes % 9.8 H, Eosinophils % 3.1 H, Basophils % 0.9, Nucleated RBC % 0.0, Neutrophils # 3.9, Lymphocytes # 0.70 L, Monocytes # 0.5, Eosinophils # 0.2, Absolute Basophils 0.1 07/27/19 06:00: Sodium 131 L, Plasma Sodium 131, Potassium 4.1, Chloride 97, Carbon Dioxide 33.7 H, Anion Gap 4.4 L, BUN 6, Creatinine 0.67, Est GFR (Non-Af Amer) 122, BUN/Creatinine Ratio 9.0, Random Glucose 121 H, Calcium 8.0, Calcium Adj for Albumin 9.0, Total Bilirubin 1.3 H, AST 24, ALT 8 L, Alkaline Phosphatase 66, Total Protein 6.6, Albumin 2.3 L Discharge Location: [facility] Disposition: Condition: Fair Face to Face Encounter completed per CMS Guidelines: No Level of Care: SNF Discharge Activity: Activity as tolerated, Partial-Weight bearing - For transferring. Discharge Diet: Consistent carb Halfway Therapy: Physical Therapy, Occupation Therapy, Speech Therapy Referrals: Med Rossi MD [Non Staff Physicians] - Complete Home Medications List: Complete Home Medication List: Apixaban [Eliquis] 5 mg PO BID 07/08/15 Finasteride [Proscar] 5 mg PO DAILY 07/08/15 Furosemide [Lasix] 80 mg PO BID 07/08/15 Gabapentin [Neurontin] 300 mg PO BID 07/08/15 Metoprolol Succinate [Toprol Xl] 400 mg PO DAILY 07/08/15 Multivit-Min/FA/Lycopen/Lutein [Centrum Silver Tablet] 1 ea PO DAILY 07/08/15 Omeprazole [Prilosec] 20 mg PO DAILY 07/08/15 Tamsulosin HCl [Flomax] 0.4 mg PO DAILY@0700 07/08/15 Ferrous Sulfate 325 mg PO TID 11/28/16 Aspirin 81 mg PO DAILY 02/02/17 Lisinopril [Zestril] 2.5 mg PO DAILY 02/02/17 Spironolactone [Aldactone] 12.5 mg PO DAILY 02/02/17 acetaminophen 325 mg tablet 650 mg PO Q4H PRN tab 10/30/18 escitalopram oxalate 10 mg tablet 10 mg PO DAILY 10/30/18 nystatin 100,000 unit/gram topical powder 1 applic TP BID PRN 10/30/18 Budesonide/Formoterol Fumarate [Symbicort 160-4.5 Mcg Inhaler] 2 puff INHALATION BID 12/09/18 Cetirizine HCl [Zyrtec] 10 mg PO DAILY 12/09/18 Cholecalciferol (Vitamin D3) [Vitamin D3] 5,000 unit PO DAILY 12/09/18 Hydrophilic Ointment [Aquaphilic Ointment] 1 appl TOPICAL TID PRN 12/09/18 Insulin Glargine,Hum.rec.anlog [Lantus] 12 unit SQ DAILY 12/09/18 Melatonin 10 mg PO HS 12/09/18 Menthol [Biofreeze] 1 appl TOPICAL BID PRN 12/09/18 Polyethylene Glycol 3350 [Miralax] 17 gm PO DAILY PRN 12/09/18 Tiotropium [place] [Spiriva] 18 mcg INHALATION DAILY 12/09/18 atorvastatin 40 mg tablet 20 mg PO Q48H tab 03/05/19 Carboxymethylcellulose Sodium [Refresh Tears] 1 drp EACHEYE BID PRN 07/22/19 Insulin Lispro [Humalog] See Protocol SQ AC 07/22/19 Ipratropium [place] [Atrovent 0.06% Nasal [place]] 2 spray NS QID 07/22/19 Loperamide HCl [Imodium] 2 mg PO PRN PRN 07/22/19 Magnesium Hydroxide [Milk Of Magnesia] 30 ml PO DAILY PRN 07/22/19 Mineral Oil/Petrolatum,White [Eucerin] 1 appl TOPICAL DAILY 07/22/19 Nut.tx.gluc Intol,Lf,Soy/Fiber [Glucerna] 240 ml PO TID 07/22/19 Nystatin [Mycostatin Powder] 1 appl TOPICAL BID PRN 07/22/19 guaiFENesin/DEXTROMETHORPHAN [Robafen Dm Cough Syrup] 10 ml PO Q4H PRN 07/22/19 Acetylcysteine [Mucomyst 20%] 800 mg INHALATION [id number] #120 vial 07/28/19 Albuterol Sulfate [Albuterol Sulfate 2.5 MG/0.5ML] 2.5 mg INHALATION Q4H PRN #120 vial.neb 07/28/19 Albuterol Sulfate/Ipratropium [Duoneb 2.5-0.5MG/3ML Soln] 3 ml INHALATION Q6HRT #120 nebu 07/28/19 Potassium Chloride [Klor-Con 10] 10 meq PO BIDWM #60 tablet.sa 07/28/19
[2019-07-28 14:55] VITALS: BP 100/54
== END 2019-07-28 13:47 | DRG 193 ==
LOC: ER 11:13 → MS 12:44
PROVIDERS: ADMIT Family Medicine; ATTEND Family Medicine
DX: Z99.81 Dependence on supplemental oxygen; Z87.891 Personal history of nicotine dependence; E11.622 Type 2 diabetes mellitus with other skin ulcer; T17.590A Other foreign object in bronchus causing asphyxiation, initial encounter; L89.892 Pressure ulcer of other site, stage 2; E66.01 Morbid (severe) obesity due to excess calories; I50.33 Acute on chronic diastolic (congestive) heart failure; Y83.5 Amputation of limb(s) as the cause of abnormal reaction of the patient, or of later complication, without mention of misadventure at the time of the procedure; L97.822 Non-pressure chronic ulcer of other part of left lower leg with fat layer exposed; Z68.41 Body mass index [BMI] 40.0-44.9, adult; I11.0 Hypertensive heart disease with heart failure; J18.1 Lobar pneumonia, unspecified organism; I70.203 Unspecified atherosclerosis of native arteries of extremities, bilateral legs; Z89.432 Acquired absence of left foot; J96.01 Acute respiratory failure with hypoxia; Z79.4 Long term (current) use of insulin; E11.51 Type 2 diabetes mellitus with diabetic peripheral angiopathy without gangrene; Z89.511 Acquired absence of right leg below knee
CPT/HCPCS: 36415; 71010; 71045; 71260; 74178; 80053; 83519; 83605; 83880; 84484; 85025; 87040; 87081; 93005; 94640; 94664; 94760; 99285; Q9963; Q9967

== ENCOUNTER 2019-12-30 18:12 | Inpatient (IN) ==
[2019-12-30] MEDS ORDERED: NORMAL SALINE 1,000 ML IV PRN (18:48)
--- NOTE | 2019-12-30 18:50 | ERNOTE ---
<Alverto Johnson - Last Filed: 12/30/19 20:00> Neuro HPI ER Record Date of Service: 12/30/19 Presenting Symptoms: weakness, other - alterred mental status Time Seen by Provider: 12/30/19 18:44 Source: patient Exam Limitations: no limitations Immunizations: IMMUNIZATION HX Immunizations Up to Date Yes History of Influenza Vaccine No Hx Pneumococcal Vaccination Yes Allergies/Adverse Reactions: Allergies Allergy/AdvReac Type Severity Reaction Status Date / Time heparin AdvReac Verified 11/14/19 13:41 Home Medications: HOME MEDICATIONS Apixaban [Eliquis] 5 mg PO BID 07/08/15 [Last Taken Unknown] Finasteride [Proscar] 5 mg PO DAILY 07/08/15 [Last Taken Unknown] Gabapentin [Neurontin] 300 mg PO BID 07/08/15 [Last Taken Unknown] Metoprolol Succinate [Toprol Xl] 400 mg PO DAILY 07/08/15 [Last Taken Unknown] Multivit-Min/FA/Lycopen/Lutein [Centrum Silver Tablet] 1 ea PO DAILY 07/08/15 [Last Taken Unknown] Omeprazole [Prilosec] 20 mg PO DAILY 07/08/15 [Last Taken Unknown] Tamsulosin HCl [Flomax] 0.4 mg PO DAILY@0700 07/08/15 [Last Taken Unknown] Ferrous Sulfate 325 mg PO TID 11/28/16 [Last Taken Unknown] Aspirin 81 mg PO DAILY 02/02/17 [Last Taken Unknown] Lisinopril [Zestril] 2.5 mg PO DAILY 02/02/17 [Last Taken Unknown] Spironolactone [Aldactone] 12.5 mg PO DAILY 02/02/17 [Last Taken Unknown] acetaminophen 325 mg tablet 650 mg PO Q4H PRN tab 10/30/18 [Last Taken Unknown] escitalopram oxalate 10 mg tablet 10 mg PO DAILY 10/30/18 [Last Taken Unknown] nystatin 100,000 unit/gram topical powder 1 applic TP BID PRN 10/30/18 [Last Taken Unknown] Budesonide/Formoterol Fumarate [Symbicort 160-4.5 Mcg Inhaler] 2 puff INHALATION BID 12/09/18 [Last Taken Unknown] Cetirizine HCl [Zyrtec] 10 mg PO DAILY 12/09/18 [Last Taken Unknown] Cholecalciferol (Vitamin D3) [Vitamin D3] 5,000 unit PO DAILY 12/09/18 [Last Taken Unknown] Hydrophilic Ointment [Aquaphilic Ointment] 1 appl TOPICAL TID PRN 12/09/18 [Last Taken Unknown] Insulin Glargine,Hum.rec.anlog [Lantus] 12 unit SQ DAILY 12/09/18 [Last Taken Unknown] Melatonin 10 mg PO HS 12/09/18 [Last Taken Unknown] Menthol [Biofreeze] 1 appl TOPICAL BID PRN 12/09/18 [Last Taken Unknown] Polyethylene Glycol 3350 [Miralax] 17 gm PO DAILY PRN 12/09/18 [Last Taken Unknown] Tiotropium [place] [Spiriva] 18 mcg INHALATION DAILY 12/09/18 [Last Taken Unknown] atorvastatin 40 mg tablet 20 mg PO Q48H tab 03/05/19 [Last Taken 07/21/19 19:00] Carboxymethylcellulose Sodium [Refresh Tears] 1 drp EACHEYE BID PRN 07/22/19 [Last Taken Unknown] Insulin Lispro [Humalog] See Protocol SQ AC 07/22/19 [Last Taken Unknown] Loperamide HCl [Imodium] 2 mg PO PRN PRN 07/22/19 [Last Taken Unknown] Magnesium Hydroxide [Milk Of Magnesia] 30 ml PO DAILY PRN 07/22/19 [Last Taken Unknown] Mineral Oil/Petrolatum,White [Eucerin] 1 appl TOPICAL DAILY 07/22/19 [Last Taken Unknown] Nut.tx.gluc Intol,Lf,Soy/Fiber [Glucerna] 240 ml PO TID 07/22/19 [Last Taken Unknown] Nystatin [Mycostatin Powder] 1 appl TOPICAL BID PRN 07/22/19 [Last Taken Unknown] guaiFENesin/DEXTROMETHORPHAN [Robafen Dm Cough Syrup] 10 ml PO Q4H PRN 07/22/19 [Last Taken Unknown] Acetylcysteine [Mucomyst 20%] 800 mg INHALATION [id number] #120 vial 07/28/19 [Last Taken Unknown] Albuterol Sulfate [Albuterol Sulfate 2.5 MG/0.5ML] 2.5 mg INHALATION Q4H PRN #120 vial.neb 07/28/19 [Last Taken Unknown] - History of Present Illness Narrative: patient presents from longterm with c/o low o2 sats and alterred mental status intermittantly since yesterday Onset: cannot confirm onset Severity: mild - Character of Deficits Additional Deficits: Present: weakness, cannot walk Baseline Cognition: Present: alert, oriented x 4 Baseline Gait: Present: unable to walk Associated Symptoms: Reports: altered mental status, disoriented Prior Treament: Reports: recently seen Review of Systems - Review of Systems Constitutional: Present: See HPI, weakness, fatigue, malaise EYE: Present: no symptoms reported ENT: Present: no symptoms reported Respiratory: Present: shortness of breath, other - low sats Cardiology: Present: no symptoms reported Gastrointestinal/Abdominal: Present: no symptoms reported Genitourinary: Present: no symptoms reported Musculoskeletal: Present: no symptoms reported Skin: Present: no symptoms reported Neurological: Present: no symptoms reported Endocrine: Present: no symptoms reported Hematologic/Lymphatic: Present: no symptoms reported Psych: Present: no symptoms reported All Other Systems: All systems neg except as marked 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) History of pneumonia (Resolved) Edema (Chronic) Senile cataracts of both eyes (Chronic) Ida infection (Acute) Of the coughed sputum specimen 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 (Acute) Hypertension (Chronic) Onset Date: Unknown Hyperlipemia (Chronic) Onset Date: Unknown COPD (chronic obstructive pulmonary disease) (Chronic) Onset Date: Unknown CAD (coronary artery disease) (Chronic) Onset Date: Unknown Abdominal aortic aneurysm (AAA) 3.0 cm to 5.5 cm in diameter in male (Chronic) Onset Date: Unknown 4cm diam Type 2 diabetes mellitus (Chronic) Onset Date: Unknown CHF (congestive heart failure) (Chronic) Onset Date: Unknown Atrial fibrillation (Chronic) Onset Date: Unknown Basal cell carcinoma Cataract Chronic sinusitis Difficulty walking Edema Facial weakness Major depression Muscle weakness Slurred speech Supplemental oxygen dependent Wears dentures Wears glasses Acute cholecystitis Diabetes mellitus type 2 Edema Essential hypertension Heart failure Surgical History: Surgical History (Last Reviewed 12/30/19 @ 18:55 by Joy Vazquez RN) History of cholecystectomy (Resolved) Onset Date: Unknown Hx of right BKA (Chronic) Onset Date: Unknown History of amputation of toe L foot X5 History of heart bypass surgery X3 History of right lower limb amputation Family History: Family History (Last Reviewed 12/30/19 @ 18:55 by Joy Vazquez RN) Father INTESTINAL SURGERY COMPLICATIONS Mother Diabetes Brother Cancer ESOPHAGUS Brother Alive and well Son Son Alive and well Son Alive and well Social History: (Last Reviewed 12/30/19 @ 18:55 by Joy Vazquez RN) Social History: longterm: Yes Tobacco: Smoking Status: Former smoker Physical Exam - Physical Exam General Appearance: Present: mild distress, anxious Head Exam: Present: normal inspection, no evidence of injury Eye Exam: Normal inspection: bilateral, PERRL: bilateral, EOMI: bilateral Ears, Nose, Throat: Present: normal ENT inspection, normal pharynx Neck: Present: normal inspection, nontender Respiratory: Present: no respiratory distress, normal breath sounds, no accessory muscle use, crackles, rales, rhonchi Cardiovascular/Chest: Present: regular rate, rhythm, no murmur Gastrointestinal/Abdominal: Present: normal bowel sounds, nontender, nondistended, soft, no organomegaly Back Exam: Present: normal inspection, normal range of motion, no CVA tenderness, no vertebral tenderness Extremity Exam: Present: normal except - - bka right leg, partial foot amputation mid foot Neurological Exam: Present: alert, oriented, normal mood/affect, no motor/sensory deficits Skin Exam: Present: normal color, warm/dry Lymphatic Exam: Present: no adenopathy Progress - Date and Time Seen: Date and Time: 12/30/19 19:39 condition unchanged - Vital Signs Patient's Vital Signs:: I have reviewed the patient's vital signs. Vital Signs: Vital Signs 12/30/19 18:22 Temperature 36.6 C Pulse Rate 57 L Respiratory Rate 17 Blood Pressure 93/49 O2 Sat by Pulse Oximetry 100 - EKG EKG #1 EKG: atrial fibrillation - Progress/Reassessment Chief Complaint: Altered Mental Status Progress:: Unchanged - Transfer of Care Physician Sign Out: Alverto Johnson Receiving Physician: Edwar Escamilla Expected Disposition: Admit Plan - Plan Plan: to admit Departure Clinical Impression: Suspected COVID-19 virus infection Altered mental state Qualifiers: Altered mental status type: disorientation Qualified Code(s): R41.0 - Disorientation, unspecified CHF (congestive heart failure) Qualifiers: Heart failure type: combined systolic and diastolic Heart failure chronicity: acute on chronic Qualified Code(s): I50.43 - Acute on chronic combined systolic (congestive) and diastolic (congestive) heart failure - Departure Disposition: Still a patient Condition: Stable <FrancineEdwar - Last Filed: 12/31/19 03:25> Neuro HPI ER Record Immunizations: IMMUNIZATION HX Immunizations Up to Date Yes History of Influenza Vaccine No Hx Pneumococcal Vaccination Yes Medical History (Last Reviewed 12/30/19 @ 18:57 by Joy Vazquez, RN) Edema leg (Chronic) But acutely worse 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 (Chronic) History of left below knee amputation (Chronic) History of pneumonia (Resolved) Edema (Chronic) Senile cataracts of both eyes (Chronic) Ida infection (Acute) Of the coughed sputum specimen 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 (Acute) Hypertension (Chronic) Onset Date: Unknown Hyperlipemia (Chronic) Onset Date: Unknown COPD (chronic obstructive pulmonary disease) (Chronic) Onset Date: Unknown CAD (coronary artery disease) (Chronic) Onset Date: Unknown Abdominal aortic aneurysm (AAA) 3.0 cm to 5.5 cm in diameter in male (Chronic) Onset Date: Unknown 4cm diam Type 2 diabetes mellitus (Chronic) Onset Date: Unknown CHF (congestive heart failure) (Chronic) Onset Date: Unknown Atrial fibrillation (Chronic) Onset Date: Unknown Basal cell carcinoma Cataract Chronic sinusitis Difficulty walking Edema Facial weakness Major depression Muscle weakness Slurred speech Supplemental oxygen dependent Wears dentures Wears glasses Acute cholecystitis Diabetes mellitus type 2 Edema Essential hypertension Heart failure Surgical History: Surgical History (Last Reviewed 12/30/19 @ 18:55 by Joy Vazquez, ANGELA) History of cholecystectomy (Resolved) Onset Date: Unknown Hx of right BKA (Chronic) Onset Date: Unknown History of amputation of toe L foot X5 History of heart bypass surgery X3 History of right lower limb amputation Family History: Family History (Last Reviewed 12/30/19 @ 18:55 by Joy Vazquez, RN) Father INTESTINAL SURGERY COMPLICATIONS Mother Diabetes Brother Cancer ESOPHAGUS Brother Alive and well Son Son Alive and well Son Alive and well Social History: (Last Reviewed 12/30/19 @ 18:55 by Joy Vazquez RN) Social History: longterm: Yes Tobacco: Smoking Status: Former smoker Physical Exam - Physical Exam General Appearance: Present: lethargic Head Exam: Present: normal inspection, no evidence of injury Respiratory: Present: no respiratory distress, no accessory muscle use Progress - Results and Orders Patient's Lab Results:: I have reviewed the patient's lab results. - Vital Signs Patient's Vital Signs:: I have reviewed the patient's vital signs. Vital Signs: Vital Signs 12/30/19 18:22 12/30/19 18:59 12/30/19 19:29 Temperature 36.6 C Pulse Rate 57 L 100 100 Respiratory Rate 17 20 19 Blood Pressure 93/49 95/48 96/53 O2 Sat by Pulse Oximetry 100 97 96 12/30/19 19:59 12/30/19 20:01 12/30/19 20:16 Temperature Pulse Rate 98 99 104 H Respiratory Rate 20 19 20 Blood Pressure 102/48 105/44 O2 Sat by Pulse Oximetry 96 97 96 12/30/19 20:31 12/30/19 20:46 12/30/19 21:16 Temperature Pulse Rate 101 H 96 106 H Respiratory Rate 22 H 19 20 Blood Pressure 93/48 85/43 L 102/46 O2 Sat by Pulse Oximetry 98 98 98 12/30/19 21:31 Temperature Pulse Rate 99 Respiratory Rate Blood Pressure O2 Sat by Pulse Oximetry 99 - X-Ray X-Ray #1 X-Ray: chest Interpretation: Interp. by tn X-ray Comments: Moderate pulmonary edema. Fluid in the right major fissure. Cardiomegaly unchanged - CT/Ultrasound CT/Ultrasound Narrative: CT head without IV contrast. No CT evidence for any acute intracranial abnormality.
[2019-12-30] MEDS ORDERED: NORMAL SALINE 1,000 ML IV ONE (19:16)
[2019-12-30 20:21] LABS: Troponin I Less than 0.017 ng/mL (0.00-0.10)
[2019-12-30 20:24] LABS: ALT 7 U/L (19-67); AST 15 U/L (0-48); Albumin * 2.5 gm/dl (3.4-5.0); Alkaline Phosphatase * 87 U/L (50-170); Anion Gap 11.4 mmol/L (6.8-13.8); BNP * 3775 pg/mL (5-650); BUN/Creatinine Ratio 18.1 (9.0-21.6); Bilirubin, Total 1.2 mg/dL (0.0-1.1); Blood Urea Nitrogen 19 mg/dL (6-23); CRP 1.9 mg/dL (0.0-0.9); Ca. Corrected For Albumin 9.3 mg/dL (8.4-10.2); Calcium * 8.4 mg/dL (7.9-10.9); Carbon Dioxide 30.5 mmol/L (24-32.6); Chloride 103 mmol/L (97-106); Glucose * 97 mg/dL (70-110); Potassium 4.9 mmol/L (3.4-4.6); Sodium 140 mmol/L (132-142); Total Protein 6.9 gm/dL (6.2-8.2)
[2019-12-30 21:19] LABS: Hematocrit 38.5 % (42.0-52.0); Mean Corpuscular Hemoglobin 30.5 pg (27-31); Mean Corpuscular Hgb Conc 31.2 g/dl (32-36); Mean Platelet Volume 9.5 fl (8-11.3); Neutrophil # 3.4 K/mm3 (1.3-6.0); Neutrophil % 64.4 % (42-75.0); Platelet Count 146 K/mm3 (150-450); Red Blood Count 3.93 M/mm3 (4.7-6.0); Red Cell Distribution Width 16.9 % (11.5-14.0); White Blood Count 5.2 K/mm3 (4.0-10.5)
[2019-12-30 23:13] LABS: Urine Bilirubin Negative (NEGATIVE); Urine Blood Negative /ul (NEGATIVE); Urine Ketone Negative (NEGATIVE); Urine Nitrite Negative (NEGATIVE); Urine Protein Negative (NEGATIVE); Urine Specific Gravity 1.025 SP.GR. (1.005-1.030); Urine Urobilinogen Normal (NORMAL)
[2019-12-30] MEDS ORDERED: FUROSEMIDE 10 MG/ML VIAL IV ONE (23:24)
[2019-12-30 23:34] LABS: Urine Amorphous Sediment Moderate - 2+ (NONE-FEW); Urine Appearance Turbid (CLEAR); Urine Bacteria 2+; Urine Color Dark Yellow; Urine Hyaline Cast 0-5 /LPF; Urine RBC None Seen /hpf (0-5); Urine WBC None Seen /hpf (0-5)
[2019-12-30] MEDS ORDERED: INSULIN LISPRO 100 UNITS/ML VIAL SC ONE (23:40)
[2019-12-30] MEDS ORDERED: MAGNESIUM HYDROXIDE 30 ML UDC PO PRN (23:57)
--- NOTE | 2019-12-31 00:05 | HP ---
Chief Complaint - Chief Complaint Date of Service: 12/31/19 Time of Service: 00:05 Chief Complaint: Acute encephalopathy History of Present Illness: 79-year-old male is a resident of [facility] presents to [facility] emergency room with complaints hypoxemia and intermittent acute encephalopathy since yesterday progressively getting worse. Arrival to the ER, vital signs are largely stable with exception of heart rate. He is initially tachycardic however predominantly patient has been bradycardic. EKG consistent with atrial fibrillation and not concerning for acute LA. In comparison to previous EKG no significant changes appreciated. Labs significant for BNP of greater than 3000, CRP of 1.9, lymphopenia, thrombocytopenia, and normocytic anemia and Mildly elevated total bilirubin. Remaining electrolytes unremarkable. Chest x-ray obtained is concerning for congestive heart failure due to prominent pulmonary vasculature. Received 20 mg of IV Lasix in the ER. Due to his low blood pressure only a low dose of Lasix was administered. Patient met criteria for corvette 19 screening. Complete viral panel completed and unremarkable. Corvette 19 nasopharyngeal swab completed results pending. Patient placed in airborne precautions/isolation. CT head completed no concern for acute bleed. Still awaiting remaining labs. Will admit to [facility] for corvette 19 rule out, acute exacerbation of congestive heart failure, acute encephalopathy, and possible suspected symptomatic bradycardia which may require temporary pacing if symptoms do not improve. 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) History of pneumonia (Resolved) Edema (Chronic) Senile cataracts of both eyes (Chronic) Ida infection (Acute) Of the coughed sputum specimen 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 (Acute) Hypertension (Chronic) Onset Date: Unknown Hyperlipemia (Chronic) Onset Date: Unknown COPD (chronic obstructive pulmonary disease) (Chronic) Onset Date: Unknown CAD (coronary artery disease) (Chronic) Onset Date: Unknown Abdominal aortic aneurysm (AAA) 3.0 cm to 5.5 cm in diameter in male (Chronic) Onset Date: Unknown 4cm diam Type 2 diabetes mellitus (Chronic) Onset Date: Unknown CHF (congestive heart failure) (Chronic) Onset Date: Unknown Atrial fibrillation (Chronic) Onset Date: Unknown Basal cell carcinoma Cataract Chronic sinusitis Difficulty walking Edema Facial weakness Major depression Muscle weakness Slurred speech Supplemental oxygen dependent Wears dentures Wears glasses Acute cholecystitis Diabetes mellitus type 2 Edema Essential hypertension Heart failure Surgical History: Surgical History (Last Reviewed 12/30/19 @ 18:55 by Joy Vazquez RN) History of cholecystectomy (Resolved) Onset Date: Unknown Hx of right BKA (Chronic) Onset Date: Unknown History of amputation of toe L foot X5 History of heart bypass surgery X3 History of right lower limb amputation Family History: Family History (Last Reviewed 12/30/19 @ 18:55 by Joy Vazquez, ANGELA) Father INTESTINAL SURGERY COMPLICATIONS Mother Diabetes Brother Cancer ESOPHAGUS Brother Alive and well Son Son Alive and well Son Alive and well Social History: (Last Reviewed 12/30/19 @ 18:55 by Joy Vazquez RN) Social History: fpc: Yes Tobacco: Smoking Status: Former smoker Review Of Systems (GEN) - Review of Systems Generalized/Overall Review: Present: Weakness, Chills EENTM: Present: No Symptoms Reported Respiratory: Present: Shortness of Breath Cardiac: Absent: Chest Pain, Edema Abdominal: Absent: Nausea, Vomiting, Abdominal Pain Genitourinary: Present: No Symptoms Reported Musculoskeletal: Present: No Symptoms Reported Neurological: Present: No Symptoms Reported Skin: Present: No Symptoms Reported Endocrine: Present: No Symptoms Reported Immunizations: IMMUNIZATION HX Immunizations Up to Date Yes History of Influenza Vaccine No Hx Pneumococcal Vaccination Yes Allergies/Adverse Reactions: Allergies Allergy/AdvReac Type Severity Reaction Status Date / Time heparin AdvReac Verified 11/14/19 13:41 Home Medications: HOME MEDICATIONS Apixaban [Eliquis] 5 mg PO BID 07/08/15 [Last Taken Unknown] Finasteride [Proscar] 5 mg PO DAILY 07/08/15 [Last Taken Unknown] Gabapentin [Neurontin] 300 mg PO BID 07/08/15 [Last Taken Unknown] Metoprolol Succinate [Toprol Xl] 400 mg PO DAILY 07/08/15 [Last Taken Unknown] Multivit-Min/FA/Lycopen/Lutein [Centrum Silver Tablet] 1 ea PO DAILY 07/08/15 [Last Taken Unknown] Omeprazole [Prilosec] 20 mg PO DAILY 07/08/15 [Last Taken Unknown] Tamsulosin HCl [Flomax] 0.4 mg PO DAILY@0700 07/08/15 [Last Taken Unknown] Ferrous Sulfate 325 mg PO TID 11/28/16 [Last Taken Unknown] Aspirin 81 mg PO DAILY 02/02/17 [Last Taken Unknown] Lisinopril [Zestril] 2.5 mg PO DAILY 02/02/17 [Last Taken Unknown] Spironolactone [Aldactone] 12.5 mg PO DAILY 02/02/17 [Last Taken Unknown] acetaminophen 325 mg tablet 650 mg PO Q4H PRN tab 10/30/18 [Last Taken Unknown] escitalopram oxalate 10 mg tablet 10 mg PO DAILY 10/30/18 [Last Taken Unknown] nystatin 100,000 unit/gram topical powder 1 applic TP BID PRN 10/30/18 [Last Taken Unknown] Budesonide/Formoterol Fumarate [Symbicort 160-4.5 Mcg Inhaler] 2 puff INHALATION BID 12/09/18 [Last Taken Unknown] Cetirizine HCl [Zyrtec] 10 mg PO DAILY 12/09/18 [Last Taken Unknown] Cholecalciferol (Vitamin D3) [Vitamin D3] 5,000 unit PO DAILY 12/09/18 [Last Taken Unknown] Hydrophilic Ointment [Aquaphilic Ointment] 1 appl TOPICAL TID PRN 12/09/18 [Last Taken Unknown] Insulin Glargine,Hum.rec.anlog [Lantus] 12 unit SQ DAILY 12/09/18 [Last Taken Unknown] Melatonin 10 mg PO HS 12/09/18 [Last Taken Unknown] Menthol [Biofreeze] 1 appl TOPICAL BID PRN 12/09/18 [Last Taken Unknown] Polyethylene Glycol 3350 [Miralax] 17 gm PO DAILY PRN 12/09/18 [Last Taken Unknown] Tiotropium Shirley [Spiriva] 18 mcg INHALATION DAILY 12/09/18 [Last Taken Unknown] atorvastatin 40 mg tablet 20 mg PO Q48H tab 03/05/19 [Last Taken 07/21/19 19:00] Carboxymethylcellulose Sodium [Refresh Tears] 1 drp EACHEYE BID PRN 07/22/19 [Last Taken Unknown] Insulin Lispro [Humalog] See Protocol SQ AC 07/22/19 [Last Taken Unknown] Loperamide HCl [Imodium] 2 mg PO PRN PRN 07/22/19 [Last Taken Unknown] Magnesium Hydroxide [Milk Of Magnesia] 30 ml PO DAILY PRN 07/22/19 [Last Taken Unknown] Mineral Oil/Petrolatum,White [Eucerin] 1 appl TOPICAL DAILY 07/22/19 [Last Taken Unknown] Nut.tx.gluc Intol,Lf,Soy/Fiber [Glucerna] 240 ml PO TID 07/22/19 [Last Taken Unknown] Nystatin [Mycostatin Powder] 1 appl TOPICAL BID PRN 07/22/19 [Last Taken Unknown] guaiFENesin/DEXTROMETHORPHAN [Robafen Dm Cough Syrup] 10 ml PO Q4H PRN 07/22/19 [Last Taken Unknown] Acetylcysteine [Mucomyst 20%] 800 mg INHALATION P5FUNIP #120 vial 07/28/19 [Last Taken Unknown] Albuterol Sulfate [Albuterol Sulfate 2.5 MG/0.5ML] 2.5 mg INHALATION Q4H PRN #120 vial.neb 07/28/19 [Last Taken Unknown] Exam - Exam Vital Signs: Vital Signs - Last Taken Temp 36.6 C 12/30/19 18:22 Pulse 55 L 12/30/19 23:00 Resp 14 12/30/19 23:00 BP 108/62 12/30/19 23:00 Pulse Ox 94 12/30/19 23:00 Constitutional: Present: Alert, Oriented x3, Cooperative, Mild distress, Somnolent, Morbidly obese ENT Exam: Present: hearing grossly normal Eye Exam: bilateral eye: normal inspection, PERRL, EOMI Neck: Present: non-tender, full range of motion, supple Back Exam: Present: normal inspection, no CVA tenderness Breasts: Present: Exam deferred Respiratory: Present: chest non-tender, decreased breath sounds - Hard to appreciate due to habitus, accessory muscle use - Retraction of abdominal muscles, crackles - Diffuse, wheezing - Fuhs, expiration (prolonged), other - Mild respiratory distress Cardiovascular/Chest: Present: JVD, bradycardia, irregularly irregular, edema - BL LE Peripheral Pulses: dorsalis-pedis (R): 1+, dorsalis-pedis (L): 1+, radial (R): 1+, radial (L): 1+ Abdomen: Present: soft, nontender, obese, other - Hepatomegaly, distended, hypoactive /Rectal: Present: Exam deferred Extremity: Present: normal range of motion, inflammation, lower extremity edema, pedal edema, slow capillary refill, swelling, other - erythema of BL LE Wound of medial side of left leg above ankle - Left Metatarsal amputation Wound of lateral aspect of right leg above knee- Right BKA Warm to touch Skin Exam: Present: normal color, warm/dry, no cyanosis Lymphatic: Present: no adenopathy Neurologic: Present: alert, oriented x 3 Appearance: Present: appropriate appearance Eye contact: Present: cooperative, decreased rate of speech Thoughts: Present: other - Able to evaluate Diagnostic Studies: Abnormal Lab Results 12/30/19 12/30/19 12/30/19 Range/Units 19:55 21:10 Unknown RBC 3.93 L (4.7-6.0) M/mm3 Hgb 12.0 L (13.5-18.0) gm/dL Hct 38.5 L (42.0-52.0) % MCHC 31.2 L (32-36) g/dl RDW 16.9 H (11.5-14.0) % Plt Count 146 L (150-450) K/mm3 Immature Gran % (Auto) 2.90 H (0.001-0.429) % Immature Gran # (Auto) 0.15 H (0.000-0.0310) K/mm3 Lymphocytes % 17.9 L (20-51) % Monocytes % 9.6 H (0.0-9) % Eosinophils % 4.0 H (0.0-3.0) % Basophils % 1.2 H (0.0-1.0) % Lymphocytes # 0.93 L (1.5-3.5) k/mm3 Potassium 4.9 H (3.4-4.6) mmol/L Total Bilirubin 1.2 H (0.0-1.1) mg/dL ALT 7 L (19-67) U/L C-Reactive Prot, Quant 1.9 H (0.0-0.9) mg/dL B-Natriuretic Peptide 3775 H (5-650) pg/mL Albumin 2.5 L (3.4-5.0) gm/dl Amorphous Sediment Moderate - 2+ H (NONE-FEW) Urine Bacteria 2+ H (NONE) Hyaline Casts 0-5 H (NONE) /LPF Laboratory Results WBC 5.2 K/mm3 (4.0-10.5) 12/30/19 21:10 RBC 3.93 M/mm3 (4.7-6.0) L 12/30/19 21:10 Hgb 12.0 gm/dL (13.5-18.0) L 12/30/19 21:10 Hct 38.5 % (42.0-52.0) L 12/30/19 21:10 MCV 98.0 fl (78-100) 12/30/19 21:10 MCH 30.5 pg (27-31) 12/30/19 21:10 MCHC 31.2 g/dl (32-36) L 12/30/19 21:10 RDW 16.9 % (11.5-14.0) H 12/30/19 21:10 Plt Count 146 K/mm3 (150-450) L 12/30/19 21:10 MPV 9.5 fl (8-11.3) 12/30/19 21:10 Immature Gran % (Auto) 2.90 % (0.001-0.429) H 12/30/19 21:10 Immature Gran # (Auto) 0.15 K/mm3 (0.000-0.0310) H 12/30/19 21:10 Neutrophils % 64.4 % (42-75.0) 12/30/19 21:10 Lymphocytes % 17.9 % (20-51) L 12/30/19 21:10 Monocytes % 9.6 % (0.0-9) H 12/30/19 21:10 Eosinophils % 4.0 % (0.0-3.0) H 12/30/19 21:10 Basophils % 1.2 % (0.0-1.0) H 12/30/19 21:10 Nucleated RBC % 0.0 k/mm3 (0-1) 12/30/19 21:10 Neutrophils # 3.4 K/mm3 (1.3-6.0) 12/30/19 21:10 Lymphocytes # 0.93 k/mm3 (1.5-3.5) L 12/30/19 21:10 Monocytes # 0.5 k/mm3 (0.0-1.0) 12/30/19 21:10 Eosinophils # 0.2 k/mm3 (0.0-0.7) 12/30/19 21:10 Absolute Basophils 0.1 k/mm3 (0.0-0.1) 12/30/19 21:10 Sodium 140 mmol/L (132-142) 12/30/19 19:55 Plasma Sodium 140 mmol/L (130-142) 12/30/19 19:55 Potassium 4.9 mmol/L (3.4-4.6) H 12/30/19 19:55 Chloride 103 mmol/L (97-106) 12/30/19 19:55 Carbon Dioxide 30.5 mmol/L (24-32.6) 12/30/19 19:55 Anion Gap 11.4 mmol/L (6.8-13.8) 12/30/19 19:55 BUN 19 mg/dL (6-23) 12/30/19 19:55 Creatinine 1.05 mg/dL (0.4-1.4) 12/30/19 19:55 Est GFR (Non-Af Amer) 72 mL/min (60-130) 12/30/19 19:55 BUN/Creatinine Ratio 18.1 (9.0-21.6) 12/30/19 19:55 Random Glucose 97 mg/dL (70-110) 12/30/19 19:55 Lactic Acid, Venous 1.2 mmol/L (0.4-2.0) 12/30/19 19:55 Calcium 8.4 mg/dL (7.9-10.9) 12/30/19 19:55 Calcium Adj for Albumin 9.3 mg/dL (8.4-10.2) 12/30/19 19:55 Total Bilirubin 1.2 mg/dL (0.0-1.1) H 12/30/19 19:55 AST 15 U/L (0-48) 12/30/19 19:55 ALT 7 U/L (19-67) L 12/30/19 19:55 Alkaline Phosphatase 87 U/L (50-170) 12/30/19 19:55 Troponin I Less than 0.017 ng/mL (0.00-0.10) 12/30/19 19:55 C-Reactive Prot, Quant 1.9 mg/dL (0.0-0.9) H 12/30/19 19:55 B-Natriuretic Peptide 3775 pg/mL (5-650) H 12/30/19 19:55 Total Protein 6.9 gm/dL (6.2-8.2) 12/30/19 19:55 Albumin 2.5 gm/dl (3.4-5.0) L 12/30/19 19:55 Procalcitonin 0.06 ng/mL (0.05-0.50) 12/30/19 19:55 Urine Color Dark yellow 12/30/19 Unknown Urine Appearance Turbid (CLEAR) 12/30/19 Unknown Urine pH 5.0 pH (5.0-7.0) 12/30/19 Unknown Ur Specific [place] 1.025 SP.GR. (1.005-1.030) 12/30/19 Unknown Urine Protein Negative mg/dL (NEGATIVE) 12/30/19 Unknown Urine Glucose (UA) Negative mg/dL (NEGATIVE) 12/30/19 Unknown Urine Ketones Negative mg/dL (NEGATIVE) 12/30/19 Unknown Urine Blood Negative /ul (NEGATIVE) 12/30/19 Unknown Urine Nitrate Negative (NEGATIVE) 12/30/19 Unknown Urine Bilirubin Negative mg/dl (NEGATIVE) 12/30/19 Unknown Urine Urobilinogen Normal EU/dl (NORMAL) 12/30/19 Unknown Ur Leukocyte Esterase Negative /ul (NEGATIVE) 12/30/19 Unknown Urine RBC None seen /hpf (0-5) 12/30/19 Unknown Urine WBC None seen /hpf (0-5) 12/30/19 Unknown Ur Epithelial Cells 0-5 /hpf (0-5) 12/30/19 Unknown Amorphous Sediment Moderate - 2+ (NONE-FEW) H 12/30/19 Unknown Urine Bacteria 2+ (NONE) H 12/30/19 Unknown Hyaline Casts 0-5 /LPF (NONE) H 12/30/19 Unknown Urine Culture Comments No culture indicated 12/30/19 Unknown Chlamy pneumoniae PCR Not detected (NotDetected) 12/30/19 19:30 Adenovirus (PCR) Not detected (NotDetected) 12/30/19 19:30 B. pertussis DNA (PCR) Not detected (NotDetected) 12/30/19 19:30 Coronavirus OC43 (PCR) Not detected (NotDetected) 12/30/19 19:30 Coronavirus HKU1 (PCR) Not detected (NotDetected) 12/30/19 19:30 Coronavirus 229E (PCR) Not detected (NotDetected) 12/30/19 19:30 Coronavirus NL63 (PCR) Not detected (NotDetected) 12/30/19 19:30 Human Metapneumovir PCR Not detected (NotDetected) 12/30/19 19:30 Influenza A (H1) PCR Not detected (NotDetected) 12/30/19 19:30 Influenza A (H1N1) PCR Not detected (NotDetected) 12/30/19 19:30 Influenza A (H3) PCR Not detected (NotDetected) 12/30/19 19:30 Influenza B (RT-PCR) Not detected (NotDetected) 12/30/19 19:30 M. pneumoniae (PCR) Not detected (NotDetected) 12/30/19 19:30 Parainfluenza 1 (PCR) Not detected (NotDetected) 12/30/19 19:30 Parainfluenza 2 (PCR) Not detected (NotDetected) 12/30/19 19:30 Parainfluenza 3 (PCR) Not detected (NotDetected) 12/30/19 19:30 Parainfluenza 4 (PCR) Not detected (NotDetected) 12/30/19 19:30 RSV (PCR) Not detected (NotDetected) 12/30/19 19:30 Rhinovirus (PCR) Not detected (NotDetected) 12/30/19 19:30 Group A Strep Rapid Negative (NEGATIVE) 12/30/19 19:30 Assessment/Plan - Narrative Narrative: Assessment/Plan 79-year-old male admitted for acute exacerbation of just of heart failure, acute encephalopathy and symptomatic bradycardia in the setting of A.- fib Acute CHF (congestive heart failure) -BNP greater than 3500 -Last echo unknown -Gentle diuresing due to hypotension and bradycardia -Received Lasix 20 mg IV x1 -Continue Lasix 10 mg IV daily, will adjust dose accordingly depending on hemodynamics -ABG pending -Daily weights -Strict I's and O's -Fluid restriction -Echo to be completed once patient is out of isolation Symptomatic bradycardia with 51-60 beats per minute in the setting of atrial fib associated with hypoxemia -Cardiac panel unremarkable -EKG no acute changes in comparison to last EKG -Trend troponins and repeat EKG in a.m. -We will administer a trial of atropine, if unsuccessful and patient continues to be symptomatic or develops persistent severe symptomatic bradycardia will consider temporary external pacemaker and transfer to [facility] for higher level of care. -Met criteria for COVID-19 screening, completed viral panel completed and unremarkable, COVID-19 results pending -Placed in airborne precautions/isolation Acute encephalopathy -CT head rule out any acute process -No concern for acute CVA-NIHSS: 0 -Neurochecks every 2 hours also -We will continue to monitor symptoms -Awaiting ABG Acute hyperkalemia -Current glucose level is <80 -We will administer 1 amp of D50 followed by 5 units of insulin -Recheck CMP in a.m. -Acute changes on EKG Acute Cellulitis BL LE - suspected of Left medial ankle above to tarsal amputation and medial aspect of the right leg [id number] (BKA) -Current clindamycin -Consult wound eval and treat -Culture wound -Tight glycemic control to prevent further complications COPD (chronic obstructive pulmonary disease) -Continue breathing treatments Abdominal aortic aneurysm (AAA) 3.0 cm to 5.5 cm in diameter in male -Chronic, no acute changes. -Tight blood pressure control to prevent any further complications Type 2 diabetes mellitus -Glucose checks before meals and at bedtime -Insulin with meals as per low-dose per protocol Fluids, electrolytes, nutrition: Fluid restriction of 2200 mL per 24 hours, consistent carb diet DVT prophylaxis: Eliquis CODE STATUS: Full code : Disposition: -Awaiting remaining labs -We will continue to monitor altered mental status with neurochecks -We will consider transfer to [facility] via level care of symptomatic bradycardia is severe and persistent despite administering atropine -We will reevaluate in the morning. -Follow-up on would not consult -Monitor blood sugars closely -Consult cardiology if bradycardia persists or there are any acute changes on EKG or cardiac panel. - Assessment/Plan (1) Acute CHF (congestive heart failure) Problem: Acute (2) Bradycardia with 51-60 beats per minute Problem: Acute (3) Bradycardia by electrocardiography Problem: Acute (4) COPD (chronic obstructive pulmonary disease) Problem: Chronic Qualifiers: COPD type: chronic bronchitis Chronic bronchitis type: simple Qualified Code(s): J41.0 - Simple chronic bronchitis (5) Abdominal aortic aneurysm (AAA) 3.0 cm to 5.5 cm in diameter in male Problem: Chronic (6) Type 2 diabetes mellitus Problem: Chronic Qualifiers: Diabetes mellitus penitentiary insulin use: with penitentiary use Diabetes mellitus complication status: with circulatory complication Diabetes mellitus complication detail: with other circulatory complications Qualified Code(s): E11.59 - Type 2 diabetes mellitus with other circulatory complications; Z79.4 - [employer] (current) use of insulin (7) Atrial fibrillation Problem: Chronic Qualifiers: Atrial fibrillation type: permanent Qualified Code(s): I48.21 - Permanent atrial fibrillation (8) Cellulitis Assessment: BL LE Cellulitis- SUSPECTED Left metarsal amputation with wound on medial aspect above ankle Right BKA amputation with wound on lateral aspect above knee Problem: Acute Qualifiers: Site of cellulitis: extremity Site of cellulitis of extremity: lower extremity Laterality: unspecified laterality Qualified Code(s): L03.119 - Cellulitis of unspecified part of limb
[2019-12-31] MEDS ORDERED: guaiFENesin/DEXTROMETHORPHAN SYRUP PO PRN (00:18)
[2019-12-31] MEDS ORDERED: HYDROPHILIC OINTMENT 454 APPL JAR TP PRN ×2 (00:19→07:15)
[2019-12-31] MEDS ORDERED: LOPERAMIDE HCL 2 MG CAPSULE PO PRN (00:21)
[2019-12-31] MEDS ORDERED: NYSTATIN 15 APPL BTL TP PRN (00:30)
[2019-12-31] MEDS ORDERED: CAPSAICIN 60 APPL TUBE TP PRN ×2 (00:33→07:15)
[2019-12-31] MEDS ORDERED: DEXTROSE 50%-WATER 50 ML SYRG IV ONE (00:35)
[2019-12-31 00:55] LABS: Hematocrit 39.4 % (42.0-52.0); Hemoglobin 12.1 gm/dL (13.5-18.0); Mean Cell Volume 99.5 fl (78-100); Mean Corpuscular Hemoglobin 30.6 pg (27-31); Mean Corpuscular Hgb Conc 30.7 g/dl (32-36); Neutrophil # 3.3 K/mm3 (1.3-6.0); Neutrophil % 58.6 % (42-75.0); Platelet Count 133 K/mm3 (150-450); Red Blood Count 3.96 M/mm3 (4.7-6.0); Red Cell Distribution Width 17.1 % (11.5-14.0); White Blood Count 5.6 K/mm3 (4.0-10.5)
[2019-12-31] MEDS: MELATONIN 3,000 MCG TABLET PO SCH ×2 (02:25→20:12)
[2019-12-31] MEDS ORDERED: INSULIN LISPRO 100 UNITS/ML VIAL ONE (03:03)
[2019-12-31] MEDS ORDERED: DEXTROSE 50%-WATER 50 ML SYRG ONE (03:03)
[2019-12-31] MEDS: CLINDAMYCIN IN 0.9 % SOD CHLOR 600 MG/50 ML BAG IV SCH ×3 (03:14→17:22)
[2019-12-31 06:32] LABS: Hematocrit 36.7 % (42.0-52.0); Hemoglobin 11.1 gm/dL (13.5-18.0); Mean Cell Volume 98.1 fl (78-100); Mean Corpuscular Hemoglobin 29.7 pg (27-31); Mean Corpuscular Hgb Conc 30.2 g/dl (32-36); Mean Platelet Volume 9.4 fl (8-11.3); Platelet Count 129 K/mm3 (150-450); Red Blood Count 3.74 M/mm3 (4.7-6.0); Red Cell Distribution Width 16.9 % (11.5-14.0); White Blood Count 4.6 K/mm3 (4.0-10.5)
[2019-12-31 06:40] LABS: Prothrombin Time (Patient) 14.3 Seconds (9.1-10.7)
[2019-12-31 06:42] LABS: INR 1.47 INR (0.92-1.08)
[2019-12-31 06:50] LABS: ALT 4 U/L (19-67); AST 12 U/L (0-48); Albumin * 2.1 gm/dl (3.4-5.0); Alkaline Phosphatase * 73 U/L (50-170); Anion Gap 7.8 mmol/L (6.8-13.8); Bilirubin, Total 1.1 mg/dL (0.0-1.1); Blood Urea Nitrogen 20 mg/dL (6-23); Calcium * 7.8 mg/dL (7.9-10.9); Carbon Dioxide 31.5 mmol/L (24-32.6); Chloride 104 mmol/L (97-106); Glucose * 75 mg/dL (70-110); Potassium 4.3 mmol/L (3.4-4.6); Sodium 139 mmol/L (132-142)
[2019-12-31 06:51] LABS: Troponin I Less than 0.017 ng/mL (0.00-0.10)
[2019-12-31 07:06] LABS: Total Cells Counted 100
[2019-12-31 07:16] LABS: Eosinophil 5 % (0-3); Lymphocyte 26 % (20-51); Monocyte 4 % (0-9); Neutrophil 65 % (42-75)
[2019-12-31 07:20] LABS: Platelet Estimate Decreased (NORMAL)
[2019-12-31 07:22] LABS: RBC Morphology Normal (NORMAL)
[2019-12-31] MEDS: INSULIN LISPRO 100 UNITS/ML VIAL SC SCH ×3 (08:31→17:21)
[2019-12-31] MEDS: INSULIN GLARGINE,HUM.REC.ANLOG 100 UNITS/ML VIAL SC SCH (08:47)
[2019-12-31] MEDS ORDERED: POLYETHYLENE GLYCOL 3350 17 GM PACKET PO PRN (09:00)
[2019-12-31] MEDS: TAMSULOSIN HCL 0.4 MG CAP.SR.24H PO SCH (09:22)
[2019-12-31] MEDS: ESCITALOPRAM OXALATE 10 MG TAB PO SCH (09:23)
[2019-12-31] MEDS: FERROUS SULFATE 325 MG TABLET PO SCH ×3 (09:23→17:20)
[2019-12-31] MEDS: APIXABAN 5 MG TABLET PO SCH ×2 (09:23→20:13)
[2019-12-31] MEDS: FINASTERIDE 5 MG TABLET PO SCH (09:23)
[2019-12-31] MEDS: PANTOPRAZOLE SODIUM 20 MG TABLET.DR PO SCH (09:23)
[2019-12-31] MEDS: FUROSEMIDE 10 MG/ML VIAL IV SCH (09:24)
[2019-12-31] MEDS: LORATADINE 10 MG TABLET PO SCH (09:24)
[2019-12-31] MEDS: ACETYLCYSTEINE 200 MG/ML VIAL IH SCH (09:33)
[2019-12-31] MEDS: CHOLECALCIFEROL 5,000 UNIT TABLET PO SCH (10:46)
[2019-12-31] MEDS: GABAPENTIN 300 MG CAPSULE PO SCH ×2 (10:46→20:13)
[2019-12-31] MEDS: TIOTROPIUM BROMIDE 5 CAP INHALER IH SCH (10:47)
[2019-12-31] MEDS: FLUTICASONE PROPION/SALMETEROL 14 PUFF DISK.W.DEV IH SCH ×2 (10:47→20:11)
[2019-12-31] MEDS: ASPIRIN 81 MG TAB.CHEW PO SCH ×2 (10:53→12:41)
[2019-12-31] MEDS ORDERED: NORMAL SALINE 1,000 ML IV PRN (14:21)
--- NOTE | 2019-12-31 14:30 | PN ---
Subjective - Date and Time Seen Date: 12/31/19 Time: 11:30 Subjective Narrative: 79-year-old male is a resident of [facility] presents to [facility] emergency room with complaints hypoxemia and intermittent acute encephalopathy since yesterday progressively getting worse. Arrival to the ER, vital signs are largely stable with exception of heart rate. He is initially tachycardic however predominantly patient has been bradycardic. EKG consistent with atrial fibrillation and not concerning for acute MO. In comparison to previous EKG no significant changes appreciated. Labs significant for BNP of greater than 3000, CRP of 1.9, lymphopenia, thrombocytopenia, and normocytic anemia and Mildly elevated total bilirubin. Remaining electrolytes unremarkable. Chest x-ray obtained is concerning for congestive heart failure due to prominent pulmonary vasculature. Received 20 mg of IV Lasix in the ER. Due to his low blood pressure only a low dose of Lasix was administered. Today, he continues to have hypotension with systolics in the 75-80 range but he appears to be perfusing well. He has had some bradycardia down into the 40s but at the time of my exam his heart rate is 63 bpm. He received 1 L of normal sali ne from ER. His code 19 panel is still pending. He has quite a lot of cellulitis in the lower extremities. 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 There is more cellulitis from the foot proximal to the distal thigh. It is reddened and warm to touch. He has had a longstanding problem with skin ulcerations in both lower extremities and because of the edema they have been hard to keep healed. He is afebrile. Objective - Review of Systems Generalized/Overall Review: Reports: Weakness, Malaise EENTM: Reports: No Symptoms Reported Respiratory: Reports: Cough. Denies: Shortness of Breath, Orthopnea, Stridor, Wheezing Cardiac: Reports: No Symptoms Reported Abdominal: Reports: No Symptoms Reported Genitourinary Symptoms: Reports: Incontinent, Other - Requires diapers Musculoskeletal Complaints: Reports: No Symptoms Reported Neurological: Reports: Other - Alternating levels of consciousness. He is alert and appropriately conversant during my visit. Skin: Reports: Change in Color, Other - Has skin tears from a dog claw on his left forearm that are Steri-Stripped. He has several bandaged areas over ulcerations on his lower extremities. The left leg is reddened and warm to touch. Endocrine: Reports: No Symptoms Reported Misc: All systems neg except as marked - Vitals Vitals: Last Vital Signs Temp 36.4 C 12/31/19 10:34 Pulse 65 12/31/19 10:34 Resp 16 12/31/19 10:34 BP 86/49 L 12/31/19 10:34 Pulse Ox 98 12/31/19 13:54 - Abnormal Lab Findings Abnormal Lab Findings: Abnormal Lab Results 12/30/19 12/30/19 12/30/19 Range/Units 19:55 21:10 Unknown RBC 3.93 L (4.7-6.0) M/mm3 Hgb 12.0 L (13.5-18.0) gm/dL Hct 38.5 L (42.0-52.0) % MCHC 31.2 L (32-36) g/dl RDW 16.9 H (11.5-14.0) % Plt Count 146 L (150-450) K/mm3 Immature Gran % (Auto) 2.90 H (0.001-0.429) % Immature Gran # (Auto) 0.15 H (0.000-0.0310) K/mm3 Lymphocytes % 17.9 L (20-51) % Monocytes % 9.6 H (0.0-9) % Eosinophils % 4.0 H (0.0-3.0) % Eosinophils % (Manual) (0-3) % Basophils % 1.2 H (0.0-1.0) % Lymphocytes # 0.93 L (1.5-3.5) k/mm3 Lymphocytes # (Manual) (1.5-3.5) k/mm3 Platelet Estimate (NORMAL) PT (9.1-10.7) Seconds INR (Anticoag Therapy) (0.92-1.08) INR PTT (Ervin) (24-32) Seconds Potassium 4.9 H (3.4-4.6) mmol/L Calcium (7.9-10.9) mg/dL Total Bilirubin 1.2 H (0.0-1.1) mg/dL ALT 7 L (19-67) U/L C-Reactive Prot, Quant 1.9 H (0.0-0.9) mg/dL B-Natriuretic Peptide 3775 H (5-650) pg/mL Total Protein (6.2-8.2) gm/dL Albumin 2.5 L (3.4-5.0) gm/dl Amorphous Sediment Moderate - 2+ H (NONE-FEW) Urine Bacteria 2+ H (NONE) Hyaline Casts 0-5 H (NONE) /LPF 12/31/19 12/31/19 12/31/19 Range/Units 00:36 06:00 06:00 RBC 3.96 L 3.74 L (4.7-6.0) M/mm3 Hgb 12.1 L 11.1 L (13.5-18.0) gm/dL Hct 39.4 L 36.7 L (42.0-52.0) % MCHC 30.7 L 30.2 L (32-36) g/dl RDW 17.1 H 16.9 H (11.5-14.0) % Plt Count 133 L 129 L (150-450) K/mm3 Immature Gran % (Auto) 3.60 H (0.001-0.429) % Immature Gran # (Auto) 0.20 H (0.000-0.0310) K/mm3 Lymphocytes % (20-51) % Monocytes % 11.6 H (0.0-9) % Eosinophils % 4.3 H (0.0-3.0) % Eosinophils % (Manual) 5 H (0-3) % Basophils % 1.1 H (0.0-1.0) % Lymphocytes # 1.16 L (1.5-3.5) k/mm3 Lymphocytes # (Manual) 1.2 L (1.5-3.5) k/mm3 Platelet Estimate Decreased L (NORMAL) PT 14.3 H (9.1-10.7) Seconds INR (Anticoag Therapy) 1.47 H (0.92-1.08) INR PTT (Ervin) 36.0 H (24-32) Seconds Potassium (3.4-4.6) mmol/L Calcium (7.9-10.9) mg/dL Total Bilirubin (0.0-1.1) mg/dL ALT (19-67) U/L C-Reactive Prot, Quant (0.0-0.9) mg/dL B-Natriuretic Peptide (5-650) pg/mL Total Protein (6.2-8.2) gm/dL Albumin (3.4-5.0) gm/dl Amorphous Sediment (NONE-FEW) Urine Bacteria (NONE) Hyaline Casts (NONE) /LPF 12/31/19 Range/Units 06:00 RBC (4.7-6.0) M/mm3 Hgb (13.5-18.0) gm/dL Hct (42.0-52.0) % MCHC (32-36) g/dl RDW (11.5-14.0) % Plt Count (150-450) K/mm3 Immature Gran % (Auto) (0.001-0.429) % Immature Gran # (Auto) (0.000-0.0310) K/mm3 Lymphocytes % (20-51) % Monocytes % (0.0-9) % Eosinophils % (0.0-3.0) % Eosinophils % (Manual) (0-3) % Basophils % (0.0-1.0) % Lymphocytes # (1.5-3.5) k/mm3 Lymphocytes # (Manual) (1.5-3.5) k/mm3 Platelet Estimate (NORMAL) PT (9.1-10.7) Seconds INR (Anticoag Therapy) (0.92-1.08) INR PTT (Hitchcock) (24-32) Seconds Potassium (3.4-4.6) mmol/L Calcium 7.8 L (7.9-10.9) mg/dL Total Bilirubin (0.0-1.1) mg/dL ALT 4 L (19-67) U/L C-Reactive Prot, Quant (0.0-0.9) mg/dL B-Natriuretic Peptide (5-650) pg/mL Total Protein 6.0 L (6.2-8.2) gm/dL Albumin 2.1 L (3.4-5.0) gm/dl Amorphous Sediment (NONE-FEW) Urine Bacteria (NONE) Hyaline Casts (NONE) /LPF - EKG/Xray Findings EKG: atrial fibrillation, other - Bradycardia EKG read: Reviewed by me XRAY: chest Interpretation: Reviewed by me - Exam Constitutional: Present: Alert, Oriented x3, Cooperative, Well developed, Well nourished, No distress ENT Exam: Present: normal ENT inspection, hearing grossly normal, pharynx no rmal, TMs normal Neck: Present: non-tender, supple, normal inspection, trachea midline, limited range of motion Breasts: Present: Exam deferred, Nontender Respiratory: Present: normal breath sounds, rales, wheezing, expiration (prolonged), No rales, No wheezing. Absent: crackles, rhonchi, stridor Cardiovascular/Chest: Present: normal peripheral pulses, regular rate, rhythm, no chest tenderness, no edema, no gallop, no JVD, no murmur, no rub, bradycardia, irregularly irregular, other - He has a known 5.5 cm abdominal aortic aneurysm that has not changed in size. Abdomen: Present: Normal bowel sounds, obese /Rectal: Present: Exam deferred Extremity: Present: non-tender, lower extremity edema, other - He has a right BKA and left footmidfoot amputation with cellulitis in the right lower extremity and pitting edema in both lower extremities. Skin Exam: Present: warm/dry, other - The skin over the right lower extremity is reddened to the stump and the left side is reddened up to the distal one third of the thigh. Neurologic: Present: drum tester II-XII nml as tested, alert, normal mood/affect, oriented x 3, motor weakness, depressed affect Appearance: Present: appropriate appearance, appropriate insight, neat, no memory impairment Eye contact: Present: cooperative, good eye contact, normal speech Thoughts: Present: normal thought pattern, no apparent hallucination Assessment/Plan Plan Narrative: Infuse 1 L of normal saline and see if it improves his vital signs. Continue current antibiotics Repeat lab tomorrow morning Convert to regular admission - Problems/Diagnosis (1) Suspected COVID-19 virus infection Problem: Acute (2) Bradycardia by electrocardiography Problem: Acute (3) Cellulitis Problem: Acute Qualifiers: Site of cellulitis: extremity Site of cellulitis of extremity: lower extremity Laterality: left Qualified Code(s): L03.116 - Cellulitis of left lower limb (4) Edema leg Problem: Chronic (5) Elevated INR Problem: Acute (6) Thrombocytopenia Problem: Acute (7) Abdominal aortic aneurysm (AAA) 3.0 cm to 5.5 cm in diameter in male Problem: Chronic (8) Type 2 diabetes mellitus Problem: Chronic Qualifiers: Diabetes mellitus terminal system operator insulin use: with terminal system operator use Diabetes mellitus complication status: with circulatory complication Diabetes mellitus complication detail: with other circulatory complications Qualified Code(s): E11.59 - Type 2 diabetes mellitus with other circulatory complications; Z79.4 - [facility] (current) use of insulin (9) Atrial fibrillation Problem: Chronic Qualifiers: Atrial fibrillation type: permanent Qualified Code(s): I48.21 - Permanent atrial fibrillation
[2019-12-31 15:15] LABS: Hemoglobin 11.2 gm/dL (13.5-18.0); Mean Cell Volume 98.1 fl (78-100); Mean Corpuscular Hemoglobin 30.5 pg (27-31); Mean Corpuscular Hgb Conc 31.1 g/dl (32-36); Mean Platelet Volume 9.2 fl (8-11.3); Neutrophil # 2.9 K/mm3 (1.3-6.0); Neutrophil % 60.8 % (42-75.0); Platelet Count 125 K/mm3 (150-450); Red Blood Count 3.67 M/mm3 (4.7-6.0); Red Cell Distribution Width 16.8 % (11.5-14.0); White Blood Count 4.8 K/mm3 (4.0-10.5)
[2019-12-31 15:22] LABS: Prothrombin Time (Patient) 14.6 Seconds (9.1-10.7)
[2019-12-31 15:23] LABS: INR 1.5 INR (0.92-1.08)
[2019-12-31 15:28] LABS: Albumin * 2.2 gm/dl (3.4-5.0); Anion Gap 11.2 mmol/L (6.8-13.8); BUN/Creatinine Ratio 19.1 (9.0-21.6); Ca. Corrected For Albumin 8.8 mg/dL (8.4-10.2); Calcium * 7.7 mg/dL (7.9-10.9); Carbon Dioxide 28.7 mmol/L (24-32.6); Potassium 4.9 mmol/L (3.4-4.6); Total Protein 6.2 gm/dL (6.2-8.2)
[2019-12-31] MEDS ORDERED: ROSUVASTATIN CALCIUM 10 MG TABLET PO SCH (21:00)
[2020-01-01] MEDS: CLINDAMYCIN IN 0.9 % SOD CHLOR 600 MG/50 ML BAG IV SCH ×3 (01:16→16:04)
[2020-01-01] MEDS: ACETYLCYSTEINE 200 MG/ML VIAL IH SCH ×3 (06:01→18:24)
[2020-01-01] MEDS: ALBUTEROL SULFATE 2.5 MG/0.5 ML VIAL.NEB IH PRN ×3 (06:02→18:22)
[2020-01-01 06:35] LABS: Hematocrit 35.9 % (42.0-52.0); Hemoglobin 10.9 gm/dL (13.5-18.0); Mean Cell Volume 97.6 fl (78-100); Mean Corpuscular Hemoglobin 29.6 pg (27-31); Mean Corpuscular Hgb Conc 30.4 g/dl (32-36); Mean Platelet Volume 9.6 fl (8-11.3); Neutrophil # 2.3 K/mm3 (1.3-6.0); Neutrophil % 56.2 % (42-75.0); Platelet Count 123 K/mm3 (150-450); Red Blood Count 3.68 M/mm3 (4.7-6.0); Red Cell Distribution Width 16.7 % (11.5-14.0)
[2020-01-01 06:43] LABS: Prothrombin Time (Patient) 14.4 Seconds (9.1-10.7)
[2020-01-01 06:44] LABS: INR 1.48 INR (0.92-1.08); Partial Thrombolplastin Time 38.3 Seconds (24-32)
[2020-01-01 06:49] LABS: Albumin * 2.2 gm/dl (3.4-5.0); Anion Gap 9.7 mmol/L (6.8-13.8); BUN/Creatinine Ratio 18.9 (9.0-21.6); Bilirubin, Total 1.1 mg/dL (0.0-1.1); Ca. Corrected For Albumin 8.8 mg/dL (8.4-10.2); Calcium * 7.7 mg/dL (7.9-10.9); Potassium 4.7 mmol/L (3.4-4.6); Total Protein 6.2 gm/dL (6.2-8.2)
[2020-01-01] MEDS: INSULIN LISPRO 100 UNITS/ML VIAL SC SCH ×3 (06:59→16:03)
[2020-01-01] MEDS: TAMSULOSIN HCL 0.4 MG CAP.SR.24H PO SCH (07:00)
[2020-01-01] MEDS: PANTOPRAZOLE SODIUM 20 MG TABLET.DR PO SCH (07:00)
[2020-01-01] MEDS: LORATADINE 10 MG TABLET PO SCH (08:17)
[2020-01-01] MEDS: APIXABAN 5 MG TABLET PO SCH ×2 (08:17→20:45)
[2020-01-01] MEDS: FERROUS SULFATE 325 MG TABLET PO SCH ×3 (08:17→16:04)
[2020-01-01] MEDS: ASPIRIN 81 MG TAB.CHEW PO SCH (08:17)
[2020-01-01] MEDS: FLUTICASONE PROPION/SALMETEROL 14 PUFF DISK.W.DEV IH SCH ×2 (08:17→20:46)
[2020-01-01] MEDS: FUROSEMIDE 10 MG/ML VIAL IV SCH (08:18)
[2020-01-01] MEDS: ESCITALOPRAM OXALATE 10 MG TAB PO SCH (08:19)
[2020-01-01] MEDS: GABAPENTIN 300 MG CAPSULE PO SCH ×2 (08:19→20:45)
[2020-01-01] MEDS: FINASTERIDE 5 MG TABLET PO SCH (08:20)
[2020-01-01] MEDS: CHOLECALCIFEROL 5,000 UNIT TABLET PO SCH (08:20)
[2020-01-01] MEDS: TIOTROPIUM BROMIDE 5 CAP INHALER IH SCH (08:20)
[2020-01-01] MEDS: INSULIN GLARGINE,HUM.REC.ANLOG 100 UNITS/ML VIAL SC SCH (08:32)
[2020-01-01] MEDS: NORMAL SALINE 1,000 ML IV PRN ×2 (09:37→13:39)
--- NOTE | 2020-01-01 09:58 | PN ---
Subjective - Date and Time Seen Date: 01/01/20 Subjective Narrative: Paras Parr is coed 18- and so is moved from room 126 to room 113. His pulse has stabilized and is registering between 60 and 80 and there is been no more bradycardia. His blood pressure however remains low at 80/60-bennie. We have not seen any more obtunded behavior. He was little confused when he was awakened this morning early by his nurse but it has been oriented and conversant and appropriate since then. Lab work shows a gram positive cocci growing out of the leg wound and it is a heavy growth. ID and sensitivity will be available tomorrow. His nasal MRSA screen was negative but I suspect that this will be an MRSA infection. I gave him a liter of IV fluid yesterday which seemed to help stabilize his pulse but did not affect the blood pressure. He was lucid all day yesterday as well. This morning's lab shows a slight drop in hemoglobin. The creatinine has been inching up each day although it is still in normal range. His EGFR this morning is 61. His INR remains slightly elevated and the reason is unclear. He is not on warfarin. His physical exam today shows skin turgor is improved and mucous membrane moisture is improved. His alertness and responsiveness are quicker and his voice is stronger. The leg continues to be reddened and has pitting edema. Heart has an irregular rhythm but with a controlled rate. Lungs have diminished lung sounds bilaterally but there are no rales, rhonchi, or wheezes heard. Objective - Review of Systems Generalized/Overall Review: Reports: Weakness EENTM: Reports: No Symptoms Reported Respiratory: Reports: Shortness of Breath. Denies: Cough, Orthopnea, Stridor, Wheezing Cardiac: Reports: Other - Irregular heart rhythm that is chronic Abdominal: Reports: No Symptoms Reported Genitourinary Symptoms: Reports: No Symptoms Reported Musculoskeletal Complaints: Reports: No Symptoms Reported Neurological: Reports: No Symptoms Reported - The mental confusion seems to have cleared and he is much more alert now. Skin: Reports: Lesions, Bruising Endocrine: Reports: No Symptoms Reported, Intolerance to Cold - Vitals Vitals: Last Vital Signs Temp 36.6 C 01/01/20 06:32 Pulse 88 01/01/20 08:53 Resp 16 01/01/20 06:32 BP 80/46 L 01/01/20 08:18 Pulse Ox 94 01/01/20 09:08 - Abnormal Lab Findings Abnormal Lab Findings: Abnormal Lab Results 12/31/19 12/31/19 12/31/19 Range/Units 14:18 14:30 15:10 RBC 3.67 L (4.7-6.0) M/mm3 Hgb 11.2 L (13.5-18.0) gm/dL Hct 36.0 L (42.0-52.0) % MCHC 31.1 L (32-36) g/dl RDW 16.8 H (11.5-14.0) % Plt Count 125 L (150-450) K/mm3 Immature Gran % (Auto) 4.60 H (0.001-0.429) % Immature Gran # (Auto) 0.22 H (0.000-0.0310) K/mm3 Lymphocytes % 17.0 L (20-51) % Monocytes % 12.0 H (0.0-9) % Eosinophils % 4.8 H (0.0-3.0) % Basophils % (0.0-1.0) % Lymphocytes # 0.82 L (1.5-3.5) k/mm3 PT 14.6 H (9.1-10.7) Seconds INR (Anticoag Therapy) 1.50 H (0.92-1.08) INR PTT (Ervin) (24-32) Seconds Potassium 4.9 H (3.4-4.6) mmol/L Calcium 7.7 L (7.9-10.9) mg/dL ALT 5 L (19-67) U/L Albumin 2.2 L (3.4-5.0) gm/dl 01/01/20 01/01/20 01/01/20 Range/Units 06:10 06:10 06:10 RBC 3.68 L (4.7-6.0) M/mm3 Hgb 10.9 L (13.5-18.0) gm/dL Hct 35.9 L (42.0-52.0) % MCHC 30.4 L (32-36) g/dl RDW 16.7 H (11.5-14.0) % Plt Count 123 L (150-450) K/mm3 Immature Gran % (Auto) 5.00 H (0.001-0.429) % Immature Gran # (Auto) 0.20 H (0.000-0.0310) K/mm3 Lymphocytes % (20-51) % Monocytes % 10.4 H (0.0-9) % Eosinophils % 4.7 H (0.0-3.0) % Basophils % 1.2 H (0.0-1.0) % Lymphocytes # 0.91 L (1.5-3.5) k/mm3 PT 14.4 H (9.1-10.7) Seconds INR (Anticoag Therapy) 1.48 H (0.92-1.08) INR PTT (Ervin) 38.3 H (24-32) Seconds Potassium 4.7 H (3.4-4.6) mmol/L Calcium 7.7 L (7.9-10.9) mg/dL ALT 7 L (19-67) U/L Albumin 2.2 L (3.4-5.0) gm/dl - EKG/Xray Findings EKG: atrial fibrillation EKG read: Interp. by me XRAY: chest Interpretation: Reviewed by me - Exam Constitutional: Present: Alert, Oriented x3, Cooperative, Well developed, Well nourished, No distress, Lethargic, Elderly, Obese ENT Exam: Present: normal ENT inspection, hearing grossly normal, pharynx normal, TMs normal Neck: Present: non-tender, full range of motion, supple, normal inspection Breasts: Present: Exam deferred, Nontender Respiratory: Present: chest non-tender, lungs clear, decreased breath sounds Cardiovascular/Chest: Present: normal peripheral pulses, regular rate, rhythm, no chest tenderness, edema - Pitting of the right BKA stump and pitting edema of the left lower extremity with erythema, fever, and infected wounds. Abdomen: Present: Normal bowel sounds, soft, nontender, nondistended, no rebound tenderness, no hepatospenomegaly, no masses /Rectal: Present: Exam deferred, External genitalia normal Extremity: Present: inflammation, lower extremity edema, leg pain, slow capillary refill, swelling Skin Exam: Present: normal color - Except the floor extremity is reddened, other - Infected wounds on the left lower extremity Lymphatic: Present: no adenopathy Neurologic: Present: site medical director II-XII nml as tested, no motor/sensory deficits, alert, normal mood/affect, oriented x 3 Appearance: Present: appropriate appearance, appropriate insight, neat, no memory impairment Eye contact: Present: cooperative, good eye contact, normal speech Thoughts: Present: normal thought pattern, no apparent hallucination Assessment/Plan Plan Narrative: 1. Normal saline 2000 cc at 250 cc/h to see if we can raise his blood pressure some. Watch for signs of fluid overload. Renal status is excellent so we should give up his fluids easily if need be. 2. Oxygen to keep O2 above 92% and respiratory therapy is to try to wean him off of oxygen 3. Get up in a chair today 4. Wound care team to evaluate his leg wound 5. Morning labs to include CBC, CMP, INR 6. Chest x-ray tomorrow morning 7. EKG tomorrow morning 8. Discharge plan for [place] [facility] [place] - Problems/Diagnosis (1) Hypotension Problem: Acute (2) Bradycardia by electrocardiography Problem: Resolved (3) Cellulitis Problem: Acute Qualifiers: Site of cellulitis: extremity Site of cellulitis of extremity: lower extremity Laterality: left Qualified Code(s): L03.116 - Cellulitis of left lower limb (4) Edema leg Problem: Chronic (5) Elevated INR Problem: Acute (6) Thrombocytopenia Problem: Acute (7) Abdominal aortic aneurysm (AAA) 3.0 cm to 5.5 cm in diameter in male Problem: Chronic (8) Type 2 diabetes mellitus Problem: Chronic Qualifiers: Diabetes mellitus senior living insulin use: with exterminator use Diabetes mellitus complication status: with circulatory complication Diabetes mellitus complication detail: with other circulatory complications Qualified Code(s): E11.59 - Type 2 diabetes mellitus with other circulatory complications; Z79.4 - [facility] (current) use of insulin (9) Atrial fibrillation Problem: Chronic Qualifiers: Atrial fibrillation type: permanent Qualified Code(s): I48.21 - Permanent atrial fibrillation (10) Suspected COVID-19 virus infection Problem: Ruled-out
[2020-01-01 11:11] LABS: Urine Bilirubin Negative (NEGATIVE); Urine Blood Negative /ul (NEGATIVE); Urine Ketone Negative (NEGATIVE); Urine Nitrite Negative (NEGATIVE); Urine Protein Negative (NEGATIVE); Urine Specific Gravity 1.025 SP.GR. (1.005-1.030); Urine Urobilinogen Normal (NORMAL)
[2020-01-01 11:24] LABS: Urine Appearance Clear (CLEAR); Urine Color Yellow; Urine RBC None Seen /hpf (0-5); Urine WBC None Seen /hpf (0-5)
[2020-01-01 11:25] LABS: Urine Amorphous Sediment Few - 1+ (NONE-FEW); Urine Bacteria None Seen
[2020-01-01] MEDS: MELATONIN 3,000 MCG TABLET PO SCH (20:45)
[2020-01-02] MEDS: CLINDAMYCIN IN 0.9 % SOD CHLOR 600 MG/50 ML BAG IV SCH ×2 (00:21→08:45)
[2020-01-02] MEDS: ALBUTEROL SULFATE 2.5 MG/0.5 ML VIAL.NEB IH PRN ×2 (05:57→13:09)
[2020-01-02] MEDS: ACETYLCYSTEINE 200 MG/ML VIAL IH SCH ×2 (05:59→13:09)
[2020-01-02 06:14] LABS: Hematocrit 34.3 % (42.0-52.0); Hemoglobin 10.7 gm/dL (13.5-18.0); Mean Cell Volume 97.7 fl (78-100); Mean Corpuscular Hemoglobin 30.5 pg (27-31); Mean Corpuscular Hgb Conc 31.2 g/dl (32-36); Mean Platelet Volume 9.1 fl (8-11.3); Neutrophil # 2.4 K/mm3 (1.3-6.0); Neutrophil % 57.2 % (42-75.0); Platelet Count 109 K/mm3 (150-450); Red Blood Count 3.51 M/mm3 (4.7-6.0); Red Cell Distribution Width 16.7 % (11.5-14.0); White Blood Count 4.3 K/mm3 (4.0-10.5)
[2020-01-02 06:24] LABS: Prothrombin Time (Patient) 14.4 Seconds (9.1-10.7)
[2020-01-02 06:32] LABS: Albumin * 2.3 gm/dl (3.4-5.0); Anion Gap 9.6 mmol/L (6.8-13.8); Ca. Corrected For Albumin 8.7 mg/dL (8.4-10.2); Calcium * 7.7 mg/dL (7.9-10.9); Carbon Dioxide 27.9 mmol/L (24-32.6); Potassium 4.5 mmol/L (3.4-4.6); Total Protein 6.3 gm/dL (6.2-8.2)
[2020-01-02 06:34] LABS: INR 1.48 INR (0.92-1.08)
[2020-01-02] MEDS: TAMSULOSIN HCL 0.4 MG CAP.SR.24H PO SCH (06:44)
[2020-01-02] MEDS: INSULIN LISPRO 100 UNITS/ML VIAL SC SCH ×3 (06:44→16:44)
[2020-01-02] MEDS: PANTOPRAZOLE SODIUM 20 MG TABLET.DR PO SCH (06:45)
[2020-01-02] MEDS: FLUTICASONE PROPION/SALMETEROL 14 PUFF DISK.W.DEV IH SCH ×2 (08:44→20:14)
[2020-01-02] MEDS: TIOTROPIUM BROMIDE 5 CAP INHALER IH SCH (08:44)
[2020-01-02] MEDS: FERROUS SULFATE 325 MG TABLET PO SCH ×3 (08:45→16:38)
[2020-01-02] MEDS: APIXABAN 5 MG TABLET PO SCH ×2 (08:45→20:16)
[2020-01-02] MEDS: ASPIRIN 81 MG TAB.CHEW PO SCH (08:45)
[2020-01-02] MEDS: LORATADINE 10 MG TABLET PO SCH (08:45)
[2020-01-02] MEDS: INSULIN GLARGINE,HUM.REC.ANLOG 100 UNITS/ML VIAL SC SCH (08:46)
[2020-01-02] MEDS: FUROSEMIDE 10 MG/ML VIAL IV SCH (08:46)
[2020-01-02] MEDS: ESCITALOPRAM OXALATE 10 MG TAB PO SCH (08:46)
[2020-01-02] MEDS: GABAPENTIN 300 MG CAPSULE PO SCH ×2 (08:46→20:16)
[2020-01-02] MEDS: FINASTERIDE 5 MG TABLET PO SCH (08:47)
[2020-01-02] MEDS: CHOLECALCIFEROL 5,000 UNIT TABLET PO SCH (08:47)
--- NOTE | 2020-01-02 12:59 | CONS ---
[facility] - General Date of Service: 01/02/20 Narrative: Patient is an 79-year-old male, recently admitted to the hospital regarding hypoxia/acute congestive heart failure, bradycardia, acute encephalopathy, cellulitis, COPD and hyperkalemia. The patient is resting comfortably during our visit, and does not wake to answer questions. The areas on the bilateral lower extremities are covered with Mepilex borders. Patient's medical history is notable for AAA, atrial fibrillation, coronary artery disease, congestive heart failure, COPD, diabetes, edema of extremities, hypertension, left trans- met amputation, right BKA, and hyperlipidemia. Source: patient Exam Limitations: clinical condition - Patient is resting comfortably and does not awake to questions. - History of Present Illness Allergies/Adverse Reactions: Allergies heparin Adverse Reaction (Verified 11/14/19 13:41) Home Medications: Home Medications Medication Instructions Recorded Last Taken Apixaban [Eliquis] 5 mg PO BID 07/08/15 Unknown Finasteride [Proscar] 5 mg PO DAILY 07/08/15 Unknown Gabapentin [Neurontin] 300 mg PO BID 07/08/15 Unknown Metoprolol Succinate [Toprol Xl] 400 mg PO DAILY 07/08/15 Unknown Multivit-Min/FA/Lycopen/Lutein 1 ea PO DAILY 07/08/15 Unknown [Centrum Silver Tablet] Omeprazole [Prilosec] 20 mg PO DAILY 07/08/15 Unknown Tamsulosin HCl [Flomax] 0.4 mg PO DAILY@0700 07/08/15 Unknown Ferrous Sulfate 325 mg PO TID 11/28/16 Unknown Aspirin 81 mg PO DAILY 02/02/17 Unknown Lisinopril [Zestril] 2.5 mg PO DAILY 02/02/17 Unknown Spironolactone [Aldactone] 12.5 mg PO DAILY 02/02/17 Unknown acetaminophen 325 mg tablet 650 mg PO Q4H PRN tab 10/30/18 Unknown escitalopram oxalate 10 mg tablet 10 mg PO DAILY 10/30/18 Unknown nystatin 100,000 unit/gram topical 1 applic TP BID PRN 10/30/18 Unknown powder Budesonide/Formoterol Fumarate 2 puff INHALATION BID 12/09/18 Unknown [Symbicort 160-4.5 Mcg Inhaler] Cetirizine HCl [Zyrtec] 10 mg PO DAILY 12/09/18 Unknown Cholecalciferol (Vitamin D3) 5,000 unit PO DAILY 12/09/18 Unknown [Vitamin D3] Hydrophilic Ointment [Aquaphilic 1 appl TOPICAL TID PRN 12/09/18 Unknown Ointment] Insulin Glargine,Hum.rec.anlog 12 unit SQ DAILY 12/09/18 Unknown [Lantus] Melatonin 10 mg PO HS 12/09/18 Unknown Menthol [Biofreeze] 1 appl TOPICAL BID PRN 12/09/18 Unknown Polyethylene Glycol 3350 [Miralax] 17 gm PO DAILY PRN 12/09/18 Unknown Tiotropium Reklaw [Spiriva] 18 mcg INHALATION DAILY 12/09/18 Unknown atorvastatin 40 mg tablet 20 mg PO Q48H tab 03/05/19 07/21/19 19:00 Carboxymethylcellulose Sodium 1 drp EACHEYE BID PRN 07/22/19 Unknown [Refresh Tears] Insulin Lispro [Humalog] See Protocol SQ AC 07/22/19 Unknown Loperamide HCl [Imodium] 2 mg PO PRN PRN 07/22/19 Unknown Magnesium Hydroxide [Milk Of 30 ml PO DAILY PRN 07/22/19 Unknown Magnesia] Mineral Oil/Petrolatum,White 1 appl TOPICAL DAILY 07/22/19 Unknown [Eucerin] Nut.tx.gluc Intol,Lf,Soy/Fiber 240 ml PO TID 07/22/19 Unknown [Glucerna] Nystatin [Mycostatin Powder] 1 appl TOPICAL BID PRN 07/22/19 Unknown guaiFENesin/DEXTROMETHORPHAN 10 ml PO Q4H PRN 07/22/19 Unknown [Robafen Dm Cough Syrup] Acetylcysteine [Mucomyst 20%] 800 mg INHALATION [id number] #120 vial 07/28/19 Unknown Albuterol Sulfate [Albuterol 2.5 mg INHALATION Q4H PRN #120 07/28/19 Unknown Sulfate 2.5 MG/0.5ML] vial.neb Medications - Medications Current Medications: Current Medications Acetylcysteine (Mucomyst 20%) 800 mg IH [id number] [place] Stop: 01/30/20 07:01 Last Admin: 01/02/20 05:59 Dose: 800 mg Documented by: Albuterol Sulfate (Albuterol Sulfate 2.5 Mg/0.5ml) 2.5 mg IH Q4H PRN PRN Reason: Dyspnea Stop: 01/30/20 00:31 Last Admin: 01/02/20 05:57 Dose: 2.5 mg Documented by: Apixaban (Eliquis) 5 mg PO BID [place] Stop: 01/30/20 09:01 Last Admin: 01/02/20 08:45 Dose: 5 mg Documented by: Aspirin (Aspirin Chewable) 81 mg PO DAILY [place] Stop: 01/30/20 09:01 Last Admin: 01/02/20 08:45 Dose: 81 mg Documented by: Cholecalciferol (Vitamin D) 5,000 unit PO DAILY [place] Stop: 01/30/20 09:01 Last Admin: 01/02/20 08:47 Dose: 5,000 unit Documented by: Escitalopram Oxalate (Lexapro) 10 mg PO DAILY [place] Stop: 01/30/20 09:01 Last Admin: 01/02/20 08:46 Dose: 10 mg Documented by: Ferrous Sulfate (Ferrous Sulfate) 325 mg PO TID [facility] Stop: 01/30/20 09:01 Last Admin: 01/02/20 12:45 Dose: 325 mg Documented by: Finasteride (Proscar) 5 mg PO DAILY [place] Stop: 01/30/20 09:01 Last Admin: 01/02/20 08:47 Dose: 5 mg Documented by: Furosemide (Lasix) 10 mg IV DAILY [facility] Stop: 01/30/20 09:01 Last Admin: 01/02/20 08:46 Dose: 10 mg Documented by: Gabapentin (Neurontin) 300 mg PO BID [place] Stop: 01/30/20 09:01 Last Admin: 01/02/20 08:46 Dose: 300 mg Documented by: Clindamycin/Sodium Chloride (Cleocin) 600 mg in 50 mls @ 50 mls/hr IV Q8H [facility] Stop: 01/30/20 01:01 Last Infusion: 01/02/20 09:45 Dose: Infused Documented by: Ceftriaxone Sodium 1,000 mg/ (Dextrose/Water) 100 mls @ 200 mls/hr IV Q24H [facility]; Protocol Stop: 01/30/20 01:31 Last Infusion: 01/02/20 02:12 Dose: Infused Documented by: Sodium Chloride (Sodium Chloride 0.9%) 1,000 mls @ 250 mls/hr IV .Q4H PRN PRN Reason: HYDRATION Last Infusion: 01/01/20 19:04 Dose: Infused Documented by: Insulin Glargine (Lantus) 12 units SC DAILY [facility] Stop: 01/30/20 09:01 Last Admin: 01/02/20 08:46 Dose: 12 units Documented by: Insulin Human Lispro (Humalog) 0 units SC AC [facility]; Protocol Stop: 01/30/20 07:01 Last Admin: 01/02/20 10:10 Dose: Not Given Documented by: Loratadine (Claritin) 10 mg PO DAILY [facility] Stop: 01/30/20 09:01 Last Admin: 01/02/20 08:45 Dose: 10 mg Documented by: Melatonin (Melatonin) 9,000 mcg PO HS [facility] Stop: 01/30/20 00:31 Last Admin: 01/01/20 20:45 Dose: 9,000 mcg Documented by: Pantoprazole Sodium (Protonix) 20 mg PO DAILY@0700 [facility] Stop: 01/30/20 07:01 Last Admin: 01/02/20 06:45 Dose: 20 mg Documented by: Fluticasone/Salmeterol (Advair 500-50 Diskus) 1 puff IH BID [facility] Stop: 01/30/20 09:01 Last Admin: 01/02/20 08:44 Dose: 1 puff Documented by: Tamsulosin HCl (Flomax) 0.4 mg PO DAILY@0700 [facility] Stop: 01/30/20 07:01 Last Admin: 01/02/20 06:44 Dose: 0.4 mg Documented by: Tiotropium Reklaw (Spiriva) 1 cap IH DAILY [facility] Stop: 01/30/20 09:01 Last Admin: 01/02/20 08:44 Dose: 1 cap Documented by: Review of Systems - Review of Systems Narrative: Not obtained, as patient is sleeping. Physical Examination - Exam Vital Signs: Vital Signs - Last Taken Temp 36.5 C 01/02/20 11:11 Pulse 107 H 01/02/20 11:11 Resp 21 H 01/02/20 11:11 BP 119/49 01/02/20 11:11 Pulse Ox 100 01/02/20 11:11 O2 Oxygen Delivery Method Nasal Cannula Constitutional: Present: No distress, Morbidly obese Respiratory: Present: no respiratory distress Cardiovascular/Chest: Present: edema Extremity: Present: pedal edema Skin Exam: Present: normal color, warm/dry, other - There are multiple superficial abrasions to bilateral lower extremities. On the left lower leg, there is an area measuring approximately 0.5 cm in circumference, with the appearance of a blood blister. There is a superficial abrasion to the left knee that measures less than a centimeter. There is a superficial abrasion above the right knee that measures less than 0.5 cm. Minimal sanguinous drainage from these areas. No erythema. Patient does have pitting edema to the left lower leg with dry flaky skin present. No erythema. - Results and Findings: Lab/Microbiology results last 24 hrs: Abnormal/Pending Laboratory Last 24 HRS 01/02/20 01/02/20 01/02/20 06:05 06:05 06:05 RBC 3.51 L Hgb 10.7 L Hct 34.3 L MCHC 31.2 L RDW 16.7 H Plt Count 109 L Immature Gran % (Auto) 3.10 H Immature Gran # (Auto) 0.13 H Monocytes % 12.0 H Eosinophils % 4.0 H Lymphocytes # 0.97 L PT 14.4 H INR (Anticoag Therapy) 1.48 H Calcium 7.7 L ALT 4 L Albumin 2.3 L Culture 12/30/19 19:52 Group A Streptococcus Screen (ANTHONY) - Final Strep Screen (Group A) NEGATIVE 12/31/19 12:36 Wound Culture - Final Other - Right No Pathogens Isolated 12/31/19 12:38 Wound Culture - Final Ankle - Bilateral Methicillin Resistant S.aureus Enterobacter Cloacae 12/30/19 20:30 Blood Culture - Preliminary Blood NO GROWTH AFTER 48 HOURS 12/30/19 19:55 Blood Culture - Preliminary Blood NO GROWTH AFTER 48 HOURS - Assessments/Findings (1) Cellulitis Diagnosis(s): The areas in question are rather superficial. The Mepilex border appears to be an appropriate dressing at this time. This should be changed every other day, and washed thoroughly with soap and water at dressing changes. Continue to monitor for signs and symptoms of infection. Due to the edema, he may benefit from Tubigrip to the left lower extremity. Problem: Acute Qualifiers: Site of cellulitis: extremity Site of cellulitis of extremity: lower extremity Laterality: left Qualified Code(s): L03.116 - Cellulitis of left lower limb
--- NOTE | 2020-01-02 15:51 | PN ---
Subjective - Date and Time Seen Date: 01/02/20 Time: 10:00 Subjective Narrative: Paras was moved out of the negative pressure room 126. He had improved significantly with holding his diuretic and rehydrating with some IV fluids. His pulse and blood pressure are much more stable. Nursing was getting him up into a chair when he suddenly became unconscious and had agonal respirations and developed cyanosis. A Dr. beaver was called and responded to by multiple per sonnel. Dr. Diallo responded from the emergency room just prior to my arrival. I was in the clinic seeing a patient when I was notified and left to come to attend Paras. When I arrived he was back in bed and was getting more alert and lucid. His breathing was fine and his color had returned to normal. No other intervention was required other than getting his head down. Because of this event today I do not believe I can discharge him back to the [facility] until Sunday. He did bradycardia down during this event. I believe he is having an intermittent bifascicular block at times and may require cardiology and perhaps pacemaker placement. I will discuss that with insulation applicator this weekend. In the meantime, I will continue to treat his radiographic pneumonia. His vital signs have been much more stable with rehydration. Objective - Review of Systems Generalized/Overall Review: Reports: Weakness, Malaise EENTM: Reports: No Symptoms Reported Respiratory: Reports: No Symptoms Reported Cardiac: Reports: No Symptoms Reported Abdominal: Reports: No Symptoms Reported Genitourinary Symptoms: Reports: No Symptoms Reported Musculoskeletal Complaints: Reports: No Symptoms Reported Neurological: Reports: No Symptoms Reported Skin: Reports: No Symptoms Reported, Other - He has cellulitis in his left lower extremity that is much improved. The erythema and fever and edema have all regressed. The open sore on the left lower leg did grow out MRSA but it is very shallow. I will treat that topically with mupirocin. I will switch him to oral antibiotics that he will go back to the [facility] with. - Vitals Vitals: Last Vital Signs Temp 36.8 C 01/02/20 15:03 Pulse 100 01/02/20 15:03 Resp 20 01/02/20 15:03 BP 95/47 01/02/20 15:03 Pulse Ox 98 01/02/20 15:03 - Abnormal Lab Findings Abnormal Lab Findings: Abnormal Lab Results 04/07/1301/02/20 01/02/20 Range/Units 06:05 06:05 06:05 RBC 3.51 L (4.7-6.0) M/mm3 Hgb 10.7 L (13.5-18.0) gm/dL Hct 34.3 L (42.0-52.0) % MCHC 31.2 L (32-36) g/dl RDW 16.7 H (11.5-14.0) % Plt Count 109 L (150-450) K/mm3 Immature Gran % (Auto) 3.10 H (0.001-0.429) % Immature Gran # (Auto) 0.13 H (0.000-0.0310) K/mm3 Monocytes % 12.0 H (0.0-9) % Eosinophils % 4.0 H (0.0-3.0) % Lymphocytes # 0.97 L (1.5-3.5) k/mm3 PT 14.4 H (9.1-10.7) Seconds INR (Anticoag Therapy) 1.48 H (0.92-1.08) INR Calcium 7.7 L (7.9-10.9) mg/dL ALT 4 L (19-67) U/L Albumin 2.3 L (3.4-5.0) gm/dl - EKG/Xray Findings EKG read: Interp. by me Interpretation: Reviewed by me - Exam Constitutional: Present: Alert, Oriented x3, Cooperative, Well developed, Well nourished, No distress ENT Exam: Present: normal ENT inspection, hearing grossly normal, pharynx normal, TMs normal Neck: Present: non-tender, full range of motion, supple Breasts: Present: Exam deferred Respiratory: Present: chest non-tender Cardiovascular/Chest: Present: normal peripheral pulses, regular rate, rhythm, bradycardia, irregularly irregular Abdomen: Present: Normal bowel sounds, soft, nontender, nondistended, no rebound tenderness, no hepatospenomegaly, no masses, obese /Rectal: Present: Exam deferred Extremity: Present: normal range of motion, non-tender, normal inspection, no pedal edema, no calf tenderness, normal capillary refill Skin Exam: Present: normal color, warm/dry, no cyanosis Lymphatic: Present: no adenopathy Neurologic: Present: media librarian II-XII nml as tested, normal cerebellar test Appearance: Present: appropriate appearance, appropriate insight, neat, no memory impairment Eye contact: Present: cooperative, good eye contact, normal speech Thoughts: Present: normal thought pattern, no apparent hallucination Assessment/Plan Plan Narrative: 1. Start mupirocin topical treatment to the leg ulcers 2. Skin contact precautions 3. Continue oral cefdinir 300 mg twice daily 4. I will try to set him up tomorrow morning and see how he does then. 5. I will contact cardiology this weekend and discuss his findings with them. 6. Discharge plan for Sunday back to [facility] - Problems/Diagnosis (1) Hypotension Problem: Acute Qualifiers: Hypotension type: idiopathic hypotension Qualified Code(s): I95.0 - Idiopathic hypotension (2) Bradycardia by electrocardiography Problem: Resolved (3) Cellulitis Problem: Acute Qualifiers: Site of cellulitis: extremity Site of cellulitis of extremity: lower extremity Laterality: left Qualified Code(s): L03.116 - Cellulitis of left lower limb (4) Edema leg Problem: Chronic (5) Elevated INR Problem: Acute (6) Thrombocytopenia Problem: Acute (7) Abdominal aortic aneurysm (AAA) 3.0 cm to 5.5 cm in diameter in male Problem: Chronic (8) Type 2 diabetes mellitus Problem: Chronic Qualifiers: Diabetes mellitus nursing associate insulin use: with nursing associate use Diabetes mellitus complication status: with circulatory complication Diabetes mellitus complication detail: with other circulatory complications Qualified Code(s): E11.59 - Type 2 diabetes mellitus with other circulatory complications; Z79.4 - lime mixer (current) use of insulin (9) Atrial fibrillation Problem: Chronic Qualifiers: Atrial fibrillation type: permanent Qualified Code(s): I48.21 - Permanent atrial fibrillation (10) Suspected COVID-19 virus infection Problem: Ruled-out (11) Syncope and collapse Problem: Acute Narrative: Patient had a syncopal event today with collapse and nearly needed resuscitation. I believe this is exactly what the [facility] has been witnessing only to have him recover. He did have bradycardia associated with the syncopal event.
[2020-01-02] MEDS: CLINDAMYCIN HCL 150 MG CAPSULE PO SCH ×2 (16:39→22:18)
[2020-01-02] MEDS: MUPIROCIN 22 APPL TUBE TP SCH (20:14)
[2020-01-02] MEDS: MELATONIN 3,000 MCG TABLET PO SCH (20:14)
[2020-01-02] MEDS: CEFDINIR 300 MG CAPSULE PO SCH (20:20)
[2020-01-02] MEDS ORDERED: DIGOXIN 0.125 MG TABLET ONE (22:49)
[2020-01-02] MEDS ORDERED: DIGOXIN 0.25 MG TABLET PO SCH (23:00)
[2020-01-03] MEDS: CLINDAMYCIN HCL 150 MG CAPSULE PO SCH ×4 (04:06→21:10)
[2020-01-03] MEDS ORDERED: DIGOXIN 0.125 MG TABLET ONE (06:02)
[2020-01-03] MEDS: DIGOXIN 0.25 MG TABLET PO SCH (06:04)
[2020-01-03 06:31] LABS: Hematocrit 34.6 % (42.0-52.0); Hemoglobin 10.8 gm/dL (13.5-18.0); Mean Cell Volume 97.2 fl (78-100); Mean Corpuscular Hemoglobin 30.3 pg (27-31); Mean Corpuscular Hgb Conc 31.2 g/dl (32-36); Mean Platelet Volume 9.5 fl (8-11.3); Platelet Count 112 K/mm3 (150-450); Red Blood Count 3.56 M/mm3 (4.7-6.0); Red Cell Distribution Width 16.5 % (11.5-14.0); White Blood Count 4.5 K/mm3 (4.0-10.5)
[2020-01-03 06:33] LABS: Total Cells Counted 100
[2020-01-03 06:46] LABS: Atypical (Reactive) Lymph 3 % (0-2); Eosinophil 1 % (0-3); Lymphocyte 22 % (20-51); Monocyte 8 % (0-9); Neutrophil 66 % (42-75); Platelet Estimate Normal (NORMAL); RBC Morphology Normal (NORMAL)
[2020-01-03 06:58] LABS: Albumin * 2.3 gm/dl (3.4-5.0); Anion Gap 10.4 mmol/L (6.8-13.8); BUN/Creatinine Ratio 17.9 (9.0-21.6); Bilirubin, Total 1.4 mg/dL (0.0-1.1); Ca. Corrected For Albumin 8.8 mg/dL (8.4-10.2); Calcium * 7.8 mg/dL (7.9-10.9); Carbon Dioxide 28.9 mmol/L (24-32.6); Potassium 4.3 mmol/L (3.4-4.6); Total Protein 6.2 gm/dL (6.2-8.2)
[2020-01-03] MEDS: INSULIN LISPRO 100 UNITS/ML VIAL SC SCH ×3 (07:09→17:06)
[2020-01-03] MEDS: TAMSULOSIN HCL 0.4 MG CAP.SR.24H PO SCH (07:21)
[2020-01-03] MEDS: PANTOPRAZOLE SODIUM 20 MG TABLET.DR PO SCH (07:21)
[2020-01-03] MEDS: TIOTROPIUM BROMIDE 5 CAP INHALER IH SCH (09:47)
[2020-01-03] MEDS: FLUTICASONE PROPION/SALMETEROL 14 PUFF DISK.W.DEV IH SCH ×2 (09:47→21:09)
[2020-01-03] MEDS: MUPIROCIN 22 APPL TUBE TP SCH ×2 (09:47→21:09)
[2020-01-03] MEDS: ASPIRIN 81 MG TAB.CHEW PO SCH (09:48)
[2020-01-03] MEDS: LORATADINE 10 MG TABLET PO SCH (09:48)
[2020-01-03] MEDS: CEFDINIR 300 MG CAPSULE PO SCH ×2 (09:48→21:11)
[2020-01-03] MEDS: ESCITALOPRAM OXALATE 10 MG TAB PO SCH (09:48)
[2020-01-03] MEDS: GABAPENTIN 300 MG CAPSULE PO SCH ×2 (09:48→21:09)
[2020-01-03] MEDS: FERROUS SULFATE 325 MG TABLET PO SCH ×3 (09:48→17:07)
[2020-01-03] MEDS: CHOLECALCIFEROL 5,000 UNIT TABLET PO SCH (09:48)
[2020-01-03] MEDS: APIXABAN 5 MG TABLET PO SCH ×2 (09:48→21:09)
[2020-01-03] MEDS: FINASTERIDE 5 MG TABLET PO SCH (09:48)
[2020-01-03] MEDS: INSULIN GLARGINE,HUM.REC.ANLOG 100 UNITS/ML VIAL SC SCH (09:49)
[2020-01-03] MEDS: NYSTATIN 15 APPL BTL TP PRN (09:51)
--- NOTE | 2020-01-03 10:37 | PN ---
Subjective - Date and Time Seen Date: 01/03/20 Time: 08:15 Subjective Narrative: Paras seems much better this morning. He is sitting up and eating breakfast unassisted. He is more alert and his responsiveness is much quicker. His syntax is good and his speech is clear. His heart rate was in the 118 range last night. I started Lanoxin 0.25 mg first dose at 11 PM and a second dose given at 6 AM. His heart rate is now in the 112-115 range. His blood pressure is also normal now. Kidney function has improved to an EGFR of 93. I will remove his fluid restriction and prepare him for discharge on Sunday. Nursing got him up into a chair using a Lobo lift today and he tolerated it very well. Very different from yesterday when he had the syncopal and near arrest event. Objective - Review of Systems Generalized/Overall Review: Reports: No Symptoms Reported EENTM: Reports: No Symptoms Reported Respiratory: Reports: No Symptoms Reported Cardiac: Reports: No Symptoms Reported Abdominal: Reports: No Symptoms Reported Genitourinary Symptoms: Reports: No Symptoms Reported Musculoskeletal Complaints: Reports: No Symptoms Reported Neurological: Reports: No Symptoms Reported Skin: Reports: No Symptoms Reported Endocrine: Reports: No Symptoms Reported Misc: All systems neg except as marked - Vitals Vitals: Last Vital Signs Temp 36.7 C 01/03/20 07:10 Pulse 113 H 01/03/20 07:10 Resp 16 01/03/20 07:10 BP 111/60 01/03/20 07:10 Pulse Ox 96 01/03/20 07:35 - Abnormal Lab Findings Abnormal Lab Findings: Abnormal Lab Results 01/03/20 01/03/20 Range/Units 06:06 06:06 RBC 3.56 L (4.7-6.0) M/mm3 Hgb 10.8 L (13.5-18.0) gm/dL Hct 34.6 L (42.0-52.0) % MCHC 31.2 L (32-36) g/dl RDW 16.5 H (11.5-14.0) % Plt Count 112 L (150-450) K/mm3 Lymphocytes # (Manual) 1.0 L (1.5-3.5) k/mm3 Atypic/Reactive Lymphs 3 H (0-2) % Random Glucose 118 H (70-110) mg/dL Calcium 7.8 L (7.9-10.9) mg/dL Total Bilirubin 1.4 H (0.0-1.1) mg/dL ALT 10 L (19-67) U/L Albumin 2.3 L (3.4-5.0) gm/dl - EKG/Xray Findings EKG: atrial fibrillation EKG read: Interp. by me XRAY: chest Interpretation: Reviewed by me - Exam Constitutional: Present: Alert, Cooperative, Well developed, Well nourished, Acute distress ENT Exam: Present: normal ENT inspection, hearing grossly normal, pharynx normal, TMs normal Neck: Present: non-tender, full range of motion, supple, normal inspection Breasts: Present: Exam deferred, Nontender Respiratory: Present: chest non-tender, lungs clear, normal breath sounds, no respiratory distress, no accessory muscle use Cardiovascular/Chest: Present: normal peripheral pulses, regular rate, rhythm, no chest tenderness, no gallop, no JVD, no murmur, no rub, edema Abdomen: Present: Normal bowel sounds /Rectal: Present: Exam deferred, Other - Patient had a good BM this morning Extremity: Present: normal range of motion, non-tender, normal inspection, no pedal edema, no calf tenderness, normal capillary refill Skin Exam: Present: normal color, warm/dry, no cyanosis Lymphatic: Present: no adenopathy Neurologic: Present: wellness spa manager II-XII nml as tested, normal cerebellar test Appearance: Present: appropriate appearance, appropriate insight, neat, no memory impairment Eye contact: Present: cooperative, good eye contact, normal speech Thoughts: Present: normal thought pattern, no apparent hallucination Assessment/Plan Plan Narrative: 1. Continue continuous cardiac monitoring 2. Monitor for signs and symptoms of volume overload 3. Add protein shakes to his diet 3 times a day 4. Repeat CBC and CMP tomorrow morning - Problems/Diagnosis (1) Hypotension Problem: Resolved Qualifiers: Hypotension type: idiopathic hypotension Qualified Code(s): I95.0 - Idiopathic hypotension (2) Bradycardia by electrocardiography Problem: Resolved (3) Cellulitis Problem: Acute Qualifiers: Site of cellulitis: extremity Site of cellulitis of extremity: lower extremity Laterality: left Qualified Code(s): L03.116 - Cellulitis of left lower limb (4) Edema leg Problem: Chronic (5) Elevated INR Problem: Acute (6) Thrombocytopenia Problem: Acute (7) Abdominal aortic aneurysm (AAA) 3.0 cm to 5.5 cm in diameter in male Problem: Chronic (8) Type 2 diabetes mellitus Problem: Chronic Qualifiers: Diabetes mellitus fdc insulin use: with intermodal truck driver use Diabetes mellitus complication status: with circulatory complication Diabetes mellitus complication detail: with other circulatory complications Qualified Code(s): E11.59 - Type 2 diabetes mellitus with other circulatory complications; Z79.4 - care home (current) use of insulin (9) Atrial fibrillation Problem: Chronic Qualifiers: Atrial fibrillation type: permanent Qualified Code(s): I48.21 - Permanent atrial fibrillation (10) Suspected COVID-19 virus infection Problem: Ruled-out (11) Syncope and collapse Problem: Acute
[2020-01-03] MEDS: FUROSEMIDE 20 MG TABLET PO SCH (12:02)
[2020-01-03] MEDS: MELATONIN 3,000 MCG TABLET PO SCH (21:10)
[2020-01-03] MEDS: ACETAMINOPHEN 325 MG TABLET PO PRN (21:53)
[2020-01-04] MEDS: CLINDAMYCIN HCL 150 MG CAPSULE PO SCH ×4 (04:28→21:25)
[2020-01-04] MEDS: DIGOXIN 0.25 MG TABLET PO SCH (05:22)
[2020-01-04 07:10] LABS: Hematocrit 34.5 % (42.0-52.0); Hemoglobin 10.7 gm/dL (13.5-18.0); Mean Cell Volume 96.6 fl (78-100); Mean Platelet Volume 9.9 fl (8-11.3); Neutrophil # 2.8 K/mm3 (1.3-6.0); Neutrophil % 62.3 % (42-75.0); Platelet Count 111 K/mm3 (150-450); Red Blood Count 3.57 M/mm3 (4.7-6.0); Red Cell Distribution Width 16.5 % (11.5-14.0); White Blood Count 4.5 K/mm3 (4.0-10.5)
[2020-01-04 07:18] LABS: Albumin * 2.2 gm/dl (3.4-5.0); Anion Gap 9.8 mmol/L (6.8-13.8); BUN/Creatinine Ratio 13.3 (9.0-21.6); Bilirubin, Total 1.5 mg/dL (0.0-1.1); Ca. Corrected For Albumin 9.3 mg/dL (8.4-10.2); Calcium * 8.2 mg/dL (7.9-10.9); Carbon Dioxide 28.5 mmol/L (24-32.6); Magnesium 1.7 mg/dL (1.2-2.8); Potassium 4.3 mmol/L (3.4-4.6); Total Protein 6.2 gm/dL (6.2-8.2)
[2020-01-04] MEDS: TAMSULOSIN HCL 0.4 MG CAP.SR.24H PO SCH (07:43)
[2020-01-04] MEDS: PANTOPRAZOLE SODIUM 20 MG TABLET.DR PO SCH (07:43)
[2020-01-04] MEDS: INSULIN LISPRO 100 UNITS/ML VIAL SC SCH ×3 (07:43→17:09)
[2020-01-04] MEDS: GABAPENTIN 300 MG CAPSULE PO SCH ×2 (09:29→21:22)
[2020-01-04] MEDS: FINASTERIDE 5 MG TABLET PO SCH (09:29)
[2020-01-04] MEDS: CEFDINIR 300 MG CAPSULE PO SCH ×2 (09:29→21:22)
[2020-01-04] MEDS: FLUTICASONE PROPION/SALMETEROL 14 PUFF DISK.W.DEV IH SCH ×2 (09:29→21:21)
[2020-01-04] MEDS: FERROUS SULFATE 325 MG TABLET PO SCH ×3 (09:29→17:06)
[2020-01-04] MEDS: TIOTROPIUM BROMIDE 5 CAP INHALER IH SCH (09:29)
[2020-01-04] MEDS: APIXABAN 5 MG TABLET PO SCH ×2 (09:30→21:22)
[2020-01-04] MEDS: ESCITALOPRAM OXALATE 10 MG TAB PO SCH (09:30)
[2020-01-04] MEDS: ASPIRIN 81 MG TAB.CHEW PO SCH (09:30)
[2020-01-04] MEDS: CHOLECALCIFEROL 5,000 UNIT TABLET PO SCH (09:30)
[2020-01-04] MEDS: LORATADINE 10 MG TABLET PO SCH (09:30)
[2020-01-04] MEDS: INSULIN GLARGINE,HUM.REC.ANLOG 100 UNITS/ML VIAL SC SCH (09:31)
[2020-01-04] MEDS ORDERED: FUROSEMIDE 10 MG/ML VIAL IV ONE (11:37)
--- NOTE | 2020-01-04 12:10 | PN ---
Subjective - Date and Time Seen Date: 01/04/20 Time: 11:00 Subjective Narrative: Paras continues to do much better mentally. We have had no more episodes of bradycardia, hypotension, altered mental status. He has gained about 3.2 kg since admission. Now he is complaining of swelling in the genitalia and it is painful when placing the catheter for him to urinate. Nursing reports that there is a lot of edema in the scrotum and it seems to be more so than it was 2 days ago. He has actually lost a small amount of weight the last 2 days for a total of about 0.3 kg. I took off his fluid restrictions yesterday and he has lost a little bit of weight today. His EGFR has risen to 107 but I suspect he is a little bit fluid overloaded. I will diurese him with IV furosemide 20 mg today. Discharge plan for tomorrow. Objective - Review of Systems Generalized/Overall Review: Reports: No Symptoms Reported EENTM: Reports: No Symptoms Reported Respiratory: Reports: No Symptoms Reported Cardiac: Reports: No Symptoms Reported Abdominal: Reports: No Symptoms Reported Genitourinary Symptoms: Reports: Other - Edema and discomfort in the genitalia Musculoskeletal Complaints: Reports: No Symptoms Reported Neurological: Reports: No Symptoms Reported Skin: Reports: No Symptoms Reported Endocrine: Reports: No Symptoms Reported - Vitals Vitals: Last Vital Signs Temp 36.8 C 01/04/20 10:54 Pulse 103 H 01/04/20 10:54 Resp 20 01/04/20 10:54 BP 101/60 01/04/20 10:54 Pulse Ox 93 01/04/20 10:54 - Abnormal Lab Findings Abnormal Lab Findings: Abnormal Lab Results 01/04/20 01/04/20 01/04/20 Range/Units 06:44 06:44 06:44 RBC 3.57 L (4.7-6.0) M/mm3 Hgb 10.7 L (13.5-18.0) gm/dL Hct 34.5 L (42.0-52.0) % MCHC 31.0 L (32-36) g/dl RDW 16.5 H (11.5-14.0) % Plt Count 111 L (150-450) K/mm3 Immature Gran % (Auto) 4.90 H (0.001-0.429) % Immature Gran # (Auto) 0.22 H (0.000-0.0310) K/mm3 Lymphocytes % 16.4 L (20-51) % Monocytes % 11.9 H (0.0-9) % Eosinophils % 3.6 H (0.0-3.0) % Lymphocytes # 0.73 L (1.5-3.5) k/mm3 ESR 21 H (0-10) mm/hr Total Bilirubin 1.5 H (0.0-1.1) mg/dL ALT 3 L (19-67) U/L Albumin 2.2 L (3.4-5.0) gm/dl - Exam Constitutional: Present: Alert, Oriented x3, Cooperative, Well developed, Well nourished, No distress, Elderly, Obese ENT Exam: Present: normal ENT inspection, hearing grossly normal, pharynx normal, TMs normal Neck: Present: non-tender, full range of motion, supple, normal inspection Breasts: Present: Exam deferred, Nontender Respiratory: Present: chest non-tender, lungs clear, normal breath sounds, no respiratory distress, no accessory muscle use Cardiovascular/Chest: Present: normal peripheral pulses, tachycardia, irregularly irregular Abdomen: Present: Normal bowel sounds, soft, nontender, nondistended /Rectal: Present: Other - Male genitalia especially the scrotum is very edematous. It is also tender and placing the urinal. Extremity: Present: normal range of motion, non-tender, normal inspection Skin Exam: Present: other - Healing sore on the left lower extremity that is MRSA positive on culture. This is very superficial and will be treated with topical mupirocin Lymphatic: Present: no adenopathy Neurologic: Present: oracle distribution consultant II-XII nml as tested Appearance: Present: appropriate appearance, appropriate insight, neat, no memory impairment Eye contact: Present: cooperative, good eye contact Thoughts: Present: normal thought pattern, no apparent hallucination Assessment/Plan Plan Narrative: 1. Furosemide 20 mg IV push today and hold the oral dose 2. Check the dig level tomorrow morning as well as a CBC and CMP 3. Anticipate discharge back to [facility] tomorrow - Problems/Diagnosis (1) Hypotension Problem: Resolved Qualifiers: Hypotension type: idiopathic hypotension Qualified Code(s): I95.0 - Idiopathic hypotension (2) Bradycardia by electrocardiography Problem: Resolved (3) Cellulitis Problem: Acute Qualifiers: Site of cellulitis: extremity Site of cellulitis of extremity: lower extremity Laterality: left Qualified Code(s): L03.116 - Cellulitis of left lower limb (4) Edema leg Problem: Chronic (5) Elevated INR Problem: Acute (6) Thrombocytopenia Problem: Acute (7) Abdominal aortic aneurysm (AAA) 3.0 cm to 5.5 cm in diameter in male Problem: Chronic (8) Type 2 diabetes mellitus Problem: Chronic Qualifiers: Diabetes mellitus fpc insulin use: with fpc use Diabetes mellitus complication status: with circulatory complication Diabetes mellitus complication detail: with other circulatory complications Qualified Code(s): E11.59 - Type 2 diabetes mellitus with other circulatory complications; Z79.4 - prison (current) use of insulin (9) Atrial fibrillation Problem: Chronic Qualifiers: Atrial fibrillation type: permanent Qualified Code(s): I48.21 - Permanent atrial fibrillation (10) Suspected COVID-19 virus infection Problem: Ruled-out (11) Syncope and collapse Problem: Acute
[2020-01-04] MEDS: FUROSEMIDE 20 MG TABLET PO SCH (12:53)
[2020-01-04] MEDS: MUPIROCIN 22 APPL TUBE TP SCH ×2 (14:12→21:21)
[2020-01-04] MEDS: MELATONIN 3,000 MCG TABLET PO SCH (21:22)
[2020-01-04] MEDS: ACETAMINOPHEN 325 MG TABLET PO PRN (22:17)
[2020-01-05] MEDS: CLINDAMYCIN HCL 150 MG CAPSULE PO SCH ×2 (04:37→11:21)
[2020-01-05] MEDS: NYSTATIN 15 APPL BTL TP PRN (05:02)
[2020-01-05] MEDS: DIGOXIN 0.25 MG TABLET PO SCH (05:14)
[2020-01-05 06:03] LABS: Hematocrit 33.5 % (42.0-52.0); Hemoglobin 10.6 gm/dL (13.5-18.0); Mean Cell Volume 96.5 fl (78-100); Mean Corpuscular Hemoglobin 30.5 pg (27-31); Mean Corpuscular Hgb Conc 31.6 g/dl (32-36); Mean Platelet Volume 9.5 fl (8-11.3); Platelet Count 115 K/mm3 (150-450); Red Blood Count 3.47 M/mm3 (4.7-6.0); Red Cell Distribution Width 16.6 % (11.5-14.0); White Blood Count 4.9 K/mm3 (4.0-10.5)
[2020-01-05 06:04] LABS: Total Cells Counted 100
[2020-01-05 06:16] LABS: Atypical (Reactive) Lymph 2 % (0-2); Eosinophil 1 % (0-3); Lymphocyte 21 % (20-51); Monocyte 11 % (0-9); Neutrophil 65 % (42-75); Neutrophil # 3.2 K/mm3 (1.3-6.0)
[2020-01-05 06:23] LABS: Albumin * 2.2 gm/dl (3.4-5.0); Anion Gap 10.8 mmol/L (6.8-13.8); BUN/Creatinine Ratio 9.8 (9.0-21.6); Bilirubin, Total 1.5 mg/dL (0.0-1.1); Ca. Corrected For Albumin 9.1 mg/dL (8.4-10.2); Carbon Dioxide 30.2 mmol/L (24-32.6); Digoxin 1.1 ng/mL (0.5-2.0); Total Protein 6.2 gm/dL (6.2-8.2)
[2020-01-05] MEDS: INSULIN LISPRO 100 UNITS/ML VIAL SC SCH ×2 (07:07→11:17)
[2020-01-05] MEDS: ASPIRIN 81 MG TAB.CHEW PO SCH (08:05)
[2020-01-05] MEDS: APIXABAN 5 MG TABLET PO SCH (08:05)
[2020-01-05] MEDS: TAMSULOSIN HCL 0.4 MG CAP.SR.24H PO SCH (08:05)
[2020-01-05] MEDS: GABAPENTIN 300 MG CAPSULE PO SCH (08:05)
[2020-01-05] MEDS: LORATADINE 10 MG TABLET PO SCH (08:05)
[2020-01-05] MEDS: ESCITALOPRAM OXALATE 10 MG TAB PO SCH (08:05)
[2020-01-05] MEDS: CHOLECALCIFEROL 5,000 UNIT TABLET PO SCH (08:05)
[2020-01-05] MEDS: TIOTROPIUM BROMIDE 5 CAP INHALER IH SCH ×2 (08:06→09:47)
[2020-01-05] MEDS: CEFDINIR 300 MG CAPSULE PO SCH (08:06)
[2020-01-05] MEDS: FLUTICASONE PROPION/SALMETEROL 14 PUFF DISK.W.DEV IH SCH (08:06)
[2020-01-05] MEDS: FINASTERIDE 5 MG TABLET PO SCH (08:06)
[2020-01-05] MEDS: PANTOPRAZOLE SODIUM 20 MG TABLET.DR PO SCH (08:06)
[2020-01-05] MEDS: FERROUS SULFATE 325 MG TABLET PO SCH (08:06)
[2020-01-05] MEDS: INSULIN GLARGINE,HUM.REC.ANLOG 100 UNITS/ML VIAL SC SCH (09:50)
[2020-01-05] MEDS: MUPIROCIN 22 APPL TUBE TP SCH (09:54)
--- NOTE | 2020-01-05 10:42 | DS ---
(1) Hypotension Problem: Resolved Qualifiers: Hypotension type: idiopathic hypotension Qualified Code(s): I95.0 - Idiopathic hypotension (2) Bradycardia by electrocardiography Problem: Resolved (3) Cellulitis Problem: Acute Qualifiers: Site of cellulitis: extremity Site of cellulitis of extremity: lower extremity Laterality: left Qualified Code(s): L03.116 - Cellulitis of left lower limb (4) Edema leg Problem: Chronic (5) Elevated INR Problem: Acute (6) Thrombocytopenia Problem: Acute (7) Abdominal aortic aneurysm (AAA) 3.0 cm to 5.5 cm in diameter in male Problem: Chronic (8) Type 2 diabetes mellitus Problem: Chronic Qualifiers: Diabetes mellitus truck terminal manager insulin use: with snf use Diabetes mellitus complication status: with circulatory complication Diabetes mellitus complication detail: with other circulatory complications Qualified Code(s): E11.59 - Type 2 diabetes mellitus with other circulatory complications; Z79.4 - jail (current) use of insulin (9) Atrial fibrillation Problem: Chronic Qualifiers: Atrial fibrillation type: permanent Qualified Code(s): I48.21 - Permanent atrial fibrillation (10) Suspected COVID-19 virus infection Problem: Ruled-out (11) Syncope and collapse Problem: Acute (12) Scrotal edema Problem: Acute Date of Discharge:: 01/05/20 Hospital Course: Paras Parr is an 79-year-old male resident of [facility] who had episodes of syncope or near syncope. The last when he developed agonal respirations and appeared to be in acute distress and was brought to the hospital per EMS. His blood pressures have been low averaging systolics in the 80s as a baseline for him for the few days prior to coming he re. He has a history of CHF and fluid retention and a lot of extremity edema. 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 He had been taking metolazone to keep the fluid down but I believe became too dry on that medicine. He nearly coded here on Sunday having a similar event. I gave him a couple liters of normal saline. His blood pressure normalized with systolics in the 118 range. His pulse also improved from bradycardia in the 30s and 40s back up to the greater than 100. I started him on Lanoxin just for rate control and his dropped his rate from about 120 down to about 100. His kidney function improved greatly while on IV fluids. Yesterday his EGFR was 107. Yesterday I was advised he had developed a lot of edema in the genitalia and he reported that it was painful trying to place the urinal because the edge was sharp and causing pain. He was able to urinate okay. I gave him 20 mg of Lasix IV yesterday. He had actually been losing a small amount of weight the last 3 days. I removed his fluid restriction on Sunday because they will not be restricting his fluids when [facility]. The last 3 days he has been is much more alert much quicker in his responses and in no distress. He is feeling much better than when he did on admission. Also, his albumin has been low at 2.2. I started him on protein shakes on Sunday but there is no improvement reflected just yet. He will continue those back at the [place]. He will be returned to [facility] today. Procedures Performed: none Results and Findings: Lab Pending Results 12/30/19 19:30: SARS-CoV-2 (PCR) Not detected 12/30/19 19:30: Group A Strep Rapid Negative 12/30/19 19:30: Chlamy pneumoniae PCR Not detected, Adenovirus (PCR) Not detect ed, B. pertussis DNA (PCR) Not detected, Coronavirus OC43 (PCR) Not detected, Coronavirus HKU1 (PCR) Not detected, Coronavirus 229E (PCR) Not detected, Coronavirus NL63 (PCR) Not detected, Human Metapneumovir PCR Not detected, Influenza A (H1) PCR Not detected, Influenza A (H1N1) PCR Not detected, Influenza A (H3) PCR Not detected, Influenza B (RT-PCR) Not detected, M. pneumoniae (PCR) Not detected, Parainfluenza 1 (PCR) Not detected, Parainfluenza 2 (PCR) Not detected, Parainfluenza 3 (PCR) Not detected, Parainfluenza 4 (PCR) Not detected, RSV (PCR) Not detected, Rhinovirus (PCR) Not detected 12/30/19 19:55: Sodium 140, Plasma Sodium 140, Potassium 4.9 H, Chloride 103, Carbon Dioxide 30.5, Anion Gap 11.4, BUN 19, Creatinine 1.05, Est GFR (Non-Af Amer) 72, BUN/Creatinine Ratio 18.1, Random Glucose 97, Calcium 8.4, Calcium Adj for Albumin 9.3, Total Bilirubin 1.2 H, AST 15, ALT 7 L, Alkaline Phosphatase 87, Troponin I Less than 0.017, C-Reactive Prot, Quant 1.9 H, B-Natriuretic Peptide 3775 H, Total Protein 6.9, Albumin 2.5 L 12/30/19 19:55: Lactic Acid, Venous 1.2 12/30/19 19:55: Procalcitonin 0.06 12/30/19 21:10: WBC 5.2, RBC 3.93 L, Hgb 12.0 L, Hct 38.5 L, MCV 98.0, MCH 30.5, MCHC 31.2 L, RDW 16.9 H, Plt Count 146 L, MPV 9.5, Immature Gran % (Auto) 2.90 H, Immature Gran # (Auto) 0.15 H, Neutrophils % 64.4, Lymphocytes % 17.9 L, Monocytes % 9.6 H, Eosinophils % 4.0 H, Basophils % 1.2 H, Nucleated RBC % 0.0, Neutrophils # 3.4, Lymphocytes # 0.93 L, Monocytes # 0.5, Eosinophils # 0.2, Absolute Basophils 0.1 12/30/19 : Urine Color Dark yellow, Urine Appearance Turbid, Urine pH 5.0, Ur Specific [place] 1.025, Urine Protein Negative, Urine Glucose (UA) Negative, Urine Ketones Negative, Urine Blood Negative, Urine Nitrate Negative, Urine Bilirubin Negative, Urine Urobilinogen Normal, Ur Leukocyte Esterase Negative, Urine RBC None seen, Urine WBC None seen, Ur Epithelial Cells 0-5, Amorphous Sediment Moderate - 2+ H, Urine Bacteria 2+ H, Hyaline Casts 0-5 H, Urine Culture Comments No culture indicated 12/31/19 00:36: WBC 5.6, RBC 3.96 L, Hgb 12.1 L, Hct 39.4 L, MCV 99.5, MCH 30.6, MCHC 30.7 L, RDW 17.1 H, Plt Count 133 L, MPV 10.0, Immature Gran % (Auto) 3.60 H, Immature Gran # (Auto) 0.20 H, Neutrophils % 58.6, Lymphocytes % 20.8, Monocytes % 11.6 H, Eosinophils % 4.3 H, Basophils % 1.1 H, Nucleated RBC % 0.0, Neutrophils # 3.3, Lymphocytes # 1.16 L, Monocytes # 0.7, Eosinophils # 0.2, Absolute Basophils 0.1 12/31/19 06:00: WBC 4.6, RBC 3.74 L, Hgb 11.1 L, Hct 36.7 L, MCV 98.1, MCH 29.7, MCHC 30.2 L, RDW 16.9 H, Plt Count 129 L, MPV 9.4, Neutrophils % (Manual) 65, Lymphocytes % (Manual) 26, Monocytes % (Manual) 4, Eosinophils % (Manual) 5 H, Neutrophils # (Manual) 3.0, Lymphocytes # (Manual) 1.2 L, Monocytes # (Manual) 0.2, Eosinophils # (Manual) 0.2, Platelet Estimate Decreased L, RBC Morphology Normal 12/31/19 06:00: PT 14.3 H, INR (Anticoag Therapy) 1.47 H, PTT ([facility]) 36.0 H 12/31/19 06:00: Sodium 139, Plasma Sodium 139, Potassium 4.3, Chloride 104, Carbon Dioxide 31.5, Anion Gap 7.8, BUN 20, Creatinine 1.05, Est GFR (Non-Af Amer) 72, BUN/Creatinine Ratio 19.0, Random Glucose 75, Calcium 7.8 L, Calcium Adj for Albumin 9.0, Total Bilirubin 1.1, AST 12, ALT 4 L, Alkaline Phosphatase 73, Troponin I Less than 0.017, Total Protein 6.0 L, Albumin 2.1 L 12/31/19 14:18: PT 14.6 H, INR (Anticoag Therapy) 1.50 H 12/31/19 14:30: Sodium 138, Plasma Sodium 138, Potassium 4.9 H, Chloride 103, Carbon Dioxide 28.7, Anion Gap 11.2, BUN 22, Creatinine 1.15, Est GFR (Non-Af Amer) 65, BUN/Creatinine Ratio 19.1, Random Glucose 91, Calcium 7.7 L, Calcium Adj for Albumin 8.8, Total Bilirubin 1.0, AST 14, ALT 5 L, Alkaline Phosphatase 75, Total Protein 6.2, Albumin 2.2 L 12/31/19 14:30: Lactic Acid, Venous 1.3 12/31/19 15:10: WBC 4.8, RBC 3.67 L, Hgb 11.2 L, Hct 36.0 L, MCV 98.1, MCH 30.5, MCHC 31.1 L, RDW 16.8 H, Plt Count 125 L, MPV 9.2, Immature Gran % (Auto) 4.60 H, Immature Gran # (Auto) 0.22 H, Neutrophils % 60.8, Lymphocytes % 17.0 L, Monocytes % 12.0 H, Eosinophils % 4.8 H, Basophils % 0.8, Nucleated RBC % 0.0, Neutrophils # 2.9, Lymphocytes # 0.82 L, Monocytes # 0.6, Eosinophils # 0.2, Absolute Basophils 0.0 01/01/20 06:10: WBC 4.0, RBC 3.68 L, Hgb 10.9 L, Hct 35.9 L, MCV 97.6, MCH 29.6, MCHC 30.4 L, RDW 16.7 H, Plt Count 123 L, MPV 9.6, Immature Gran % (Auto) 5.00 H, Immature Gran # (Auto) 0.20 H, Neutrophils % 56.2, Lymphocytes % 22.5, Monocytes % 10.4 H, Eosinophils % 4.7 H, Basophils % 1.2 H, Nucleated RBC % 0.0, Neutrophils # 2.3, Lymphocytes # 0.91 L, Monocytes # 0.4, Eosinophils # 0.2, Absolute Basophils 0.1 01/01/20 06:10: PT 14.4 H, INR (Anticoag Therapy) 1.48 H, PTT ([facility]) 38.3 H 01/01/20 06:10: Sodium 139, Plasma Sodium 139, Potassium 4.7 H, Chloride 104, Carbon Dioxide 30.0, Anion Gap 9.7, BUN 23, Creatinine 1.22, Est GFR (Non-Af Amer) 61, BUN/Creatinine Ratio 18.9, Random Glucose 79, Calcium 7.7 L, Calcium Adj for Albumin 8.8, Total Bilirubin 1.1, AST 14, ALT 7 L, Alkaline Phosphatase 82, Total Protein 6.2, Albumin 2.2 L 01/01/20 11:03: Urine Color Yellow, Urine Appearance Clear, Urine pH 5.0, Ur Specific [place] 1.025, Urine Protein Negative, Urine Glucose (UA) Negative, Urine Ketones Negative, Urine Blood Negative, Urine Nitrate Negative, Urine Bilirubin Negative, Urine Urobilinogen Normal, Ur Leukocyte Esterase Negative, Urine RBC None seen, Urine WBC None seen, Ur Epithelial Cells Trace, Amorphous Sediment Few - 1+, Urine Bacteria None seen 01/02/20 06:05: WBC 4.3, RBC 3.51 L, Hgb 10.7 L, Hct 34.3 L, MCV 97.7, MCH 30.5, MCHC 31.2 L, RDW 16.7 H, Plt Count 109 L, MPV 9.1, Immature Gran % (Auto) 3.10 H, Immature Gran # (Auto) 0.13 H, Neutrophils % 57.2, Lymphocytes % 22.8, Monocytes % 12.0 H, Eosinophils % 4.0 H, Basophils % 0.9, Nucleated RBC % 0.0, Neutrophils # 2.4, Lymphocytes # 0.97 L, Monocytes # 0.5, Eosinophils # 0.2, Absolute Basophils 0.0 01/02/20 06:05: PT 14.4 H, INR (Anticoag Therapy) 1.48 H 01/02/20 06:05: Sodium 137, Plasma Sodium 137, Potassium 4.5, Chloride 104, Carbon Dioxide 27.9, Anion Gap 9.6, BUN 21, Creatinine 1.05, Est GFR (Non-Af Amer) 72, BUN/Creatinine Ratio 20.0, Random Glucose 100, Calcium 7.7 L, Calcium Adj for Albumin 8.7, Total Bilirubin 1.0, AST 14, ALT 4 L, Alkaline Phosphatase 72, Total Protein 6.3, Albumin 2.3 L 01/03/20 06:06: WBC 4.5, RBC 3.56 L, Hgb 10.8 L, Hct 34.6 L, MCV 97.2, MCH 30.3, MCHC 31.2 L, RDW 16.5 H, Plt Count 112 L, MPV 9.5, Neutrophils % (Manual) 66, Lymphocytes % (Manual) 22, Monocytes % (Manual) 8, Eosinophils % (Manual) 1, Neutrophils # (Manual) 3.0, Lymphocytes # (Manual) 1.0 L, Monocytes # (Manual) 0.4, Eosinophils # (Manual) 0.0, Atypic/Reactive Lymphs 3 H, Platelet Estimate Normal, RBC Morphology Normal 01/03/20 06:06: Sodium 138, Plasma Sodium 138, Potassium 4.3, Chloride 103, Carbon Dioxide 28.9, Anion Gap 10.4, BUN 15, Creatinine 0.84, Est GFR (Non-Af Amer) 93 D, BUN/Creatinine Ratio 17.9, Random Glucose 118 H, Calcium 7.8 L, Calcium Adj for Albumin 8.8, Total Bilirubin 1.4 H, AST 17, ALT 10 L, Alkaline Phosphatase 81, Total Protein 6.2, Albumin 2.3 L 01/04/20 06:44: WBC 4.5, RBC 3.57 L, Hgb 10.7 L, Hct 34.5 L, MCV 96.6, MCH 30.0, MCHC 31.0 L, RDW 16.5 H, Plt Count 111 L, MPV 9.9, Immature Gran % (Auto) 4.90 H, Immature Gran # (Auto) 0.22 H, Neutrophils % 62.3, Lymphocytes % 16.4 L, Monocytes % 11.9 H, Eosinophils % 3.6 H, Basophils % 0.9, Nucleated RBC % 0.0, Neutrophils # 2.8, Lymphocytes # 0.73 L, Monocytes # 0.5, Eosinophils # 0.2, Absolute Basophils 0.0 01/04/20 06:44: ESR 21 H 01/04/20 06:44: Sodium 138, Plasma Sodium 138, Potassium 4.3, Chloride 104, Carbon Dioxide 28.5, Anion Gap 9.8, BUN 10, Creatinine 0.75, Est GFR (Non-Af Amer) 107, BUN/Creatinine Ratio 13.3, Random Glucose 83, Calcium 8.2, Calcium Adj for Albumin 9.3, Magnesium 1.7, Total Bilirubin 1.5 H, AST 15, ALT 3 L, Alkaline Phosphatase 66, Total Protein 6.2, Albumin 2.2 L 01/05/20 05:45: Sodium 138, Plasma Sodium 138, Potassium 4.0, Chloride 101, Carbon Dioxide 30.2, Anion Gap 10.8, BUN 8, Creatinine 0.82, Est GFR (Non-Af Amer) 96, BUN/Creatinine Ratio 9.8, Random Glucose 90, Calcium 8.0, Calcium Adj for Albumin 9.1, Total Bilirubin 1.5 H, AST 16, ALT 5 L, Alkaline Phosphatase 68, Total Protein 6.2, Albumin 2.2 L, Digoxin 1.1 01/05/20 05:45: WBC 4.9, RBC 3.47 L, Hgb 10.6 L, Hct 33.5 L, MCV 96.5, MCH 30.5, MCHC 31.6 L, RDW 16.6 H, Plt Count 115 L, MPV 9.5, Neutrophils % (Manual) 65, Lymphocytes % (Manual) 21, Monocytes % (Manual) 11 H, Eosinophils % (Manual) 1, Neutrophils # (Manual) 3.2, Lymphocytes # (Manual) 1.0 L, Monocytes # (Manual) 0.5, Eosinophils # (Manual) 0.0, Basophils # (Manual) 0.0, Atypic/Reactive Lymphs 2 Discharge Location: [facility] Disposition: SNF Condition: Stable Level of Care: SNF Discharge Activity: Activity as tolerated Discharge Diet: Consistent carbs Group Home Therapy: Physical Therapy, Occupation Therapy, Speech Therapy Additional Patient Instructions (free text): Pt is from [facility], please call and fax discharge orders to them. Back to SNF for PT, OT and ST to evaluate and treat. Complete Home Medications List: Complete Home Medication List: Apixaban [Eliquis] 5 mg PO BID 07/08/15 Finasteride [Proscar] 5 mg PO DAILY 07/08/15 Gabapentin [Neurontin] 300 mg PO BID 07/08/15 Multivit-Min/FA/Lycopen/Lutein [Centrum Silver Tablet] 1 ea PO DAILY 07/08/15 Omeprazole [Prilosec] 20 mg PO DAILY 07/08/15 Tamsulosin HCl [Flomax] 0.4 mg PO DAILY@0700 07/08/15 Ferrous Sulfate 325 mg PO TID 11/28/16 Aspirin 81 mg PO DAILY 02/02/17 Lisinopril [Zestril] 2.5 mg PO DAILY 02/02/17 Spironolactone [Aldactone] 12.5 mg PO DAILY 02/02/17 acetaminophen 325 mg tablet 650 mg PO Q4H PRN tab 10/30/18 escitalopram oxalate 10 mg tablet 10 mg PO DAILY 10/30/18 nystatin 100,000 unit/gram topical powder 1 applic TP BID PRN 10/30/18 Budesonide/Formoterol Fumarate [Symbicort 160-4.5 Mcg Inhaler] 2 puff INHALATION BID 12/09/18 Cetirizine HCl [Zyrtec] 10 mg PO DAILY 12/09/18 Cholecalciferol (Vitamin D3) [Vitamin D3] 5,000 unit PO DAILY 12/09/18 Hydrophilic Ointment [Aquaphilic Ointment] 1 appl TOPICAL TID PRN 12/09/18 Insulin Glargine,Hum.rec.anlog [Lantus] 12 unit SQ DAILY 12/09/18 Melatonin 10 mg PO HS 12/09/18 Menthol [Biofreeze] 1 appl TOPICAL BID PRN 12/09/18 Polyethylene Glycol 3350 [Miralax] 17 gm PO DAILY PRN 12/09/18 Tiotropium [place] [Spiriva] 18 mcg INHALATION DAILY 12/09/18 atorvastatin 40 mg tablet 20 mg PO Q48H tab 03/05/19 Carboxymethylcellulose Sodium [Refresh Tears] 1 drp EACHEYE BID PRN 07/22/19 Insulin Lispro [Humalog] See Protocol SQ AC 07/22/19 Loperamide HCl [Imodium] 2 mg PO PRN PRN 07/22/19 Magnesium Hydroxide [Milk Of Magnesia] 30 ml PO DAILY PRN 07/22/19 Mineral Oil/Petrolatum,White [Eucerin] 1 appl TOPICAL DAILY 07/22/19 Nut.tx.gluc Intol,Lf,Soy/Fiber [Glucerna] 240 ml PO TID 07/22/19 Nystatin [Mycostatin Powder] 1 appl TOPICAL BID PRN 07/22/19 guaiFENesin/DEXTROMETHORPHAN [Robafen Dm Cough Syrup] 10 ml PO Q4H PRN 07/22/19 Albuterol Sulfate [Albuterol Sulfate 2.5 MG/0.5ML] 2.5 mg INHALATION Q4H PRN #120 vial.neb 07/28/19 Cefdinir [Omnicef] 300 mg PO BID #16 cap 01/05/20 Clindamycin HCl [Cleocin] 300 mg PO Q6H #32 cap 01/05/20 Digoxin [Lanoxin] 0.25 mg PO DAILY@0600 #30 tab 01/05/20 Furosemide [Lasix] 20 mg PO DAILY@1100 #30 tab 01/05/20 Mupirocin [Bactroban] 1 appl TOPICAL BID #1 tube 01/05/20
[2020-01-05] MEDS: FUROSEMIDE 20 MG TABLET PO SCH (11:17)
[2020-01-05 12:34] VITALS: BP 118/66
== END 2020-01-05 12:00 | DRG 314 ==
LOC: ER 18:12 → MS 18:12 → OBSVTOIN 23:35 → MS 23:57
PROVIDERS: ADMIT Family Medicine; ATTEND Family Medicine
DX: L03.116 Cellulitis of left lower limb; N39.0 Urinary tract infection, site not specified; I11.0 Hypertensive heart disease with heart failure; N50.89 Other specified disorders of the male genital organs; I50.43 Acute on chronic combined systolic (congestive) and diastolic (congestive) heart failure; B95.62 Methicillin resistant Staphylococcus aureus infection as the cause of diseases classified elsewhere; R79.1 Abnormal coagulation profile; I95.0 Idiopathic hypotension; R10.9 Unspecified abdominal pain; Z79.4 Long term (current) use of insulin; E87.5 Hyperkalemia; I48.21 Permanent atrial fibrillation; Z89.432 Acquired absence of left foot; E11.9 Type 2 diabetes mellitus without complications; Z89.511 Acquired absence of right leg below knee; R09.02 Hypoxemia; G93.40 Encephalopathy, unspecified; R00.1 Bradycardia, unspecified
CPT/HCPCS: 36415; 70450; 71010; 71045; 80053; 80162; 81001; 83519; 83605; 83735; 83880; 84145; 84484; 85007; 85025; 85610; 85652; 85730; 86140; 87040; 87070; 87077; 87081; 87186; 87430; 87633; 93005; 94640; 94664; 94760; 94762; 99285

== ENCOUNTER 2020-01-07 15:57 | Observation (INO) ==
--- NOTE | 2020-01-07 16:18 | ERNOTE ---
Medical Problem HPI - Narrative Date of Service: 01/07/20 - General Chief Complaint: General Assessment Time Seen by Provider: 01/07/20 15:57 Source: patient Exam Limitations: no limitations - Immun/Allergies/Home Medications Immunizations: IMMUNIZATION HX Immunizations Up to Date Yes History of Influenza Vaccine No Hx Pneumococcal Vaccination Yes Allergies/Adverse Reactions: Allergies heparin Adverse Reaction (Verified 11/14/19 13:41) Home Medications: HOME MEDICATIONS Apixaban [Eliquis] 5 mg PO BID 07/08/15 [Last Taken Unknown] Finasteride [Proscar] 5 mg PO DAILY 07/08/15 [Last Taken Unknown] Gabapentin [Neurontin] 300 mg PO BID 07/08/15 [Last Taken Unknown] Multivit-Min/FA/Lycopen/Lutein [Centrum Silver Tablet] 1 ea PO DAILY 07/08/15 [Last Taken Unknown] Omeprazole [Prilosec] 20 mg PO DAILY 07/08/15 [Last Taken Unknown] Tamsulosin HCl [Flomax] 0.4 mg PO DAILY@0700 07/08/15 [Last Taken Unknown] Ferrous Sulfate 325 mg PO TID 11/28/16 [Last Taken Unknown] Aspirin 81 mg PO DAILY 02/02/17 [Last Taken Unknown] Lisinopril [Zestril] 2.5 mg PO DAILY 02/02/17 [Last Taken Unknown] Spironolactone [Aldactone] 12.5 mg PO DAILY 02/02/17 [Last Taken Unknown] acetaminophen 325 mg tablet 650 mg PO Q4H PRN tab 10/30/18 [Last Taken Unknown] escitalopram oxalate 10 mg tablet 10 mg PO DAILY 10/30/18 [Last Taken Unknown] nystatin 100,000 unit/gram topical powder 1 applic TP BID PRN 10/30/18 [Last Taken Unknown] Budesonide/Formoterol Fumarate [Symbicort 160-4.5 Mcg Inhaler] 2 puff INHALATION BID 12/09/18 [Last Taken Unknown] Cetirizine HCl [Zyrtec] 10 mg PO DAILY 12/09/18 [Last Taken Unknown] Cholecalciferol (Vitamin D3) [Vitamin D3] 5,000 unit PO DAILY 12/09/18 [Last Taken Unknown] Hydrophilic Ointment [Aquaphilic Ointment] 1 appl TOPICAL TID PRN 12/09/18 [Last Taken Unknown] Insulin Glargine,Hum.rec.anlog [Lantus] 12 unit SQ DAILY 12/09/18 [Last Taken Unknown] Melatonin 10 mg PO HS 12/09/18 [Last Taken Unknown] Menthol [Biofreeze] 1 appl TOPICAL BID PRN 12/09/18 [Last Taken Unknown] Tiotropium Benson [Spiriva] 18 mcg INHALATION DAILY 12/09/18 [Last Taken Unknown] atorvastatin 40 mg tablet 20 mg PO Q48H tab 03/05/19 [Last Taken 07/21/19 19:00] Carboxymethylcellulose Sodium [Refresh Tears] 1 drp EACHEYE BID PRN 07/22/19 [Last Taken Unknown] Insulin Lispro [Humalog] See Protocol SQ AC 07/22/19 [Last Taken Unknown] Loperamide HCl [Imodium] 2 mg PO PRN PRN 07/22/19 [Last Taken Unknown] Mineral Oil/Petrolatum,White [Eucerin] 1 appl TOPICAL DAILY 07/22/19 [Last Taken Unknown] Albuterol Sulfate [Albuterol Sulfate 2.5 MG/0.5ML] 2.5 mg INHALATION Q4H PRN #120 vial.neb 07/28/19 [Last Taken Unknown] Cefdinir [Omnicef] 300 mg PO BID #16 cap 01/05/20 [Last Taken Unknown] Clindamycin HCl [Cleocin] 300 mg PO Q6H #32 cap 01/05/20 [Last Taken Unknown] Digoxin [Lanoxin] 0.25 mg PO DAILY@0600 #30 tab 01/05/20 [Last Taken Unknown] Furosemide [Lasix] 20 mg PO DAILY@1100 #30 tab 01/05/20 [Last Taken Unknown] Mupirocin [Bactroban] 1 appl TOPICAL BID #1 tube 01/05/20 [Last Taken Unknown] Magnesium Hydroxide [Milk Of Magnesia] 30 ml PO DAILY PRN 01/07/20 [Last Taken Unknown] Nut.tx.gluc Intol,Lf,Soy/Fiber [Glucerna] 240 ml PO TID 01/07/20 [Last Taken Unknown] guaiFENesin [Robafen] 10 ml PO Q4H PRN 01/07/20 [Last Taken Unknown] - Pain Score Pain Score #1 Pain Score: 0 - History of Present History Narrative: The patient is a 79 year old male who presents via [facility] with report from [facility] with concern for worsening redness to left lower leg which has worsened since arrival back to [facility] days ago. There are associated symptoms of blister to left medial thigh with weeping. The patient denies pain. There are no alleviating factors. There are no aggravating factors. Previous treatments have included: Clindamycin and Cefdinir, patient refusing dose of antibiotic this am. The past medical history includes: HTN, DM, heart failure, AFib, CHF, COPD, CAD, AAA, HLD and depression. The social history is positive for former smoker. The patient has had no ill contacts. Patient was discharged back to [facility] after inpatient treatment with IV antibiotics for left lower extremity cellulitis and MRSA would to left lower anterior leg. Review of Systems - Review of Systems Constitutional: Present: fatigue. Absent: fever, chills EYE: Present: no symptoms reported ENT: Present: no symptoms reported. Absent: ear pain, nasal drainage, sore throat Respiratory: Present: shortness of breath. Absent: cough Cardiology: Present: no symptoms reported. Absent: chest pain Gastrointestinal/Abdominal: Present: other - pain with swallowing. Absent: nausea, vomiting, diarrhea Genitourinary: Present: no symptoms reported. 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) History of pneumonia (Resolved) Edema (Chronic) Senile cataracts of both eyes (Chronic) Ida infection (Acute) Of the coughed sputum specimen 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 (Acute) Hypertension (Chronic) Onset Date: Unknown Hyperlipemia (Chronic) Onset Date: Unknown COPD (chronic obstructive pulmonary disease) (Chronic) Onset Date: Unknown CAD (coronary artery disease) (Chronic) Onset Date: Unknown Abdominal aortic aneurysm (AAA) 3.0 cm to 5.5 cm in diameter in male (Chronic) Onset Date: Unknown 4cm diam Type 2 diabetes mellitus (Chronic) Onset Date: Unknown CHF (congestive heart failure) (Chronic) Onset Date: Unknown Atrial fibrillation (Chronic) Onset Date: Unknown Basal cell carcinoma Cataract Chronic sinusitis Difficulty walking Edema Facial weakness Major depression Muscle weakness Slurred speech Supplemental oxygen dependent Wears dentures Wears glasses Acute cholecystitis Diabetes mellitus type 2 Edema Essential hypertension Heart failure Surgical History: Surgical History (Last Reviewed 01/07/20 @ 16:47 by MARVIN Lock) History of cholecystectomy (Resolved) Onset Date: Unknown Hx of right BKA (Chronic) Onset Date: Unknown History of amputation of toe L foot X5 History of heart bypass surgery X3 History of right lower limb amputation Family History: Family History (Last Reviewed 01/07/20 @ 16:47 by MARVIN Lock) Father INTESTINAL SURGERY COMPLICATIONS Mother Diabetes Brother Cancer ESOPHAGUS Brother Alive and well Son Son Alive and well Son Alive and well Social History: (Last Reviewed 01/07/20 @ 16:47 by MARVIN Lock) Social History: detention: Yes Tobacco: Smoking Status: Former smoker Physical Exam - Physical Exam General Appearance: Present: wd/wn, alert, no apparent distress Head Exam: Present: normal inspection Eye Exam: Normal inspection: bilateral Neck: Present: normal inspection Respiratory: Present: no respiratory distress, chest nontender, accessory muscle use, decreased breath sounds Cardiovascular/Chest: Present: irregularly irregular Gastrointestinal/Abdominal: Present: normal bowel sounds, nontender, nondistended, soft, no organomegaly Back Exam: Present: other - diffuse erythema without warm or wound Extremity Exam: Present: normal range of motion - to bilateral knee and left ankle, extremity edema - 1+ pitting to left lower extremity, other - erythema to right BKA stump without open wound, diffuse circumferential erythema to left lower leg with open wound to left anterior mcneill approximately 2cm x 2cm, 2 blisters noted to left medial thigh with posterior to medial erythema and weeping clear fluid Neurological Exam: Present: alert, oriented, normal mood/affect Skin Exam: Present: normal color, warm/dry, other - perfect rectangle raised erythematous area to left lateral thigh Progress - Date and Time Seen: Date and Time: 01/07/20 16:30 present to evaluate presentation of patient, states that erythema was not presents to left lower extremity at discharge. Informed that patient did not take oral dose of Clindamycin or Cefdinir this am as well as missed dose of cefdinir last p.m. states he discussed micro report with clinical pharmacist Chelsea Cho regarding best treatment. Review of micro report shows that Clinda and cefdinir were resistant or unknown for MRSA susceptibility, after joint discussion Dr. Pina reports they were not treating the MRSA with IV antibiotics just the cellulitis and using topical mupirocin ointment for the MRSA wound. 01/07/20 17:48 Due to patient's elevation of BNP as well as CRP would prefer to admit patient for observation for continued monitoring of blood pressure along with diuresis due to patient's dyspnea with SPO2 88% on room air. Patient received supplemental oxygen via nasal cannula during ER stay to maintain sats 95%. Patient during previous admission did not tolerate diuresis well with developed hypotension and bradycardia in response. Will also change oral antibiotic to Bactrim DS due to susceptibility report obtained from inpatient admission. Due to use of Bactrim digoxin level will need to be closely monitored during treatment. Discussed patient treatment with Dr. Velasquez, will admit for observation for reevaluation and treatment course plan tomorrow. 01/07/20 17:59 Patient was complaining of discomfort with swallowing as though has foreign body, patient able to swallowing water and saliva without vomiting. Discussion with during examination and requested patient be started on Sucralfate susp. to aid with esophagitis. - Results and Orders Patient's Lab Results:: I have reviewed the patient's lab results. - Vital Signs Patient's Vital Signs:: I have reviewed the patient's vital signs. Vital Signs: Vital Signs 01/07/20 15:57 Temperature 36.4 C Pulse Rate 92 Respiratory Rate 18 Blood Pressure 124/86 O2 Sat by Pulse Oximetry 88 L - Progress/Reassessment Chief Complaint: General Assessment Departure Clinical Impression: Failure of outpatient treatment, Elevated brain natriuretic peptide (BNP) level Cellulitis Qualifiers: Site of cellulitis: extremity Site of cellulitis of extremity: lower extremity Laterality: left Qualified Code(s): L03.116 - Cellulitis of left lower limb - Departure Disposition: Still a patient Condition: Fair
[2020-01-07] MEDS ORDERED: CLINDAMYCIN IN 0.9 % SOD CHLOR 600 MG/50 ML BAG IV SCH (16:30)
[2020-01-07] MEDS ORDERED: cefTRIAXone SODIUM 1,000 MG/100 ML BAG IV ONE (16:30)
[2020-01-07 16:35] LABS: Hematocrit 37.8 % (42.0-52.0); Hemoglobin 11.7 gm/dL (13.5-18.0); Mean Cell Volume 97.2 fl (78-100); Mean Corpuscular Hemoglobin 30.1 pg (27-31); Mean Platelet Volume 9.4 fl (8-11.3); Neutrophil # 3.3 K/mm3 (1.3-6.0); Neutrophil % 58.8 % (42-75.0); Platelet Count 148 K/mm3 (150-450); Red Blood Count 3.89 M/mm3 (4.7-6.0); Red Cell Distribution Width 17.1 % (11.5-14.0); White Blood Count 5.6 K/mm3 (4.0-10.5)
[2020-01-07 16:52] LABS: Albumin * 2.2 gm/dl (3.4-5.0); Anion Gap 9.7 mmol/L (6.8-13.8); Bilirubin, Total 2.5 mg/dL (0.0-1.1); CRP 5.7 mg/dL (0.0-0.9); Ca. Corrected For Albumin 9.2 mg/dL (8.4-10.2); Calcium * 8.1 mg/dL (7.9-10.9); Carbon Dioxide 31.3 mmol/L (24-32.6); Total Protein 6.4 gm/dL (6.2-8.2)
[2020-01-07] MEDS ORDERED: SULFAMETHOXAZOLE/TRIMETHOPRIM 1 TAB TABLET PO ONE (17:42)
[2020-01-07] MEDS ORDERED: ACETAMINOPHEN 500 MG TABLET PO PRN (20:00)
[2020-01-07] MEDS ORDERED: guaiFENesin 100 MG/5 ML SYRUP PO PRN (20:12)
[2020-01-07] MEDS ORDERED: CALCIUM CARBONATE 500 MG TAB.CHEW PO PRN (20:12)
[2020-01-07] MEDS ORDERED: LOPERAMIDE HCL 2 MG CAPSULE PO PRN (20:12)
[2020-01-07] MEDS ORDERED: ALBUTEROL SULFATE 2.5 MG/0.5 ML VIAL.NEB IH PRN (20:12)
[2020-01-07] MEDS ORDERED: MAGNESIUM HYDROXIDE 30 ML UDC PO PRN (20:12)
[2020-01-07] MEDS ORDERED: NYSTATIN 15 APPL BTL TP PRN (20:12)
[2020-01-07] MEDS ORDERED: POLYVINYL ALCOHOL 150 DROP BTL EACHEYE PRN (20:51)
[2020-01-07] MEDS ORDERED: HYDROPHILIC OINTMENT 454 APPL JAR TP PRN (20:56)
[2020-01-07] MEDS ORDERED: ROSUVASTATIN CALCIUM 10 MG TABLET PO SCH (21:00)
[2020-01-07] MEDS ORDERED: MELATONIN 3,000 MCG TABLET PO SCH (21:00)
--- NOTE | 2020-01-07 21:19 | HP ---
Chief Complaint - Chief Complaint Date of Service: 01/07/20 Time of Service: 20:45 Chief Complaint: I have swelling and redness in my left leg for several days. History of Present Illness: 79-year-old male [facility] resident with past medical history of CHF, atrial fibrillation, hypertension, type 2 diabetes, morbid obesity, hyperlipidemia, COPD, former smoker, right below the knee amputation, CAD with coronary bypass x3 was evaluated in our ER due to recurrence of left lower extremity cellulitis and CHF. Patient was treated here at [facility] on an inpatient basis to treat cellulitis of his left lower extremity and decompensated CHF. Patient has an extensive history of heart disease and has undergone triple bypass surgery of his coronary arteries, he also has atrial fibrillation and is on chronic anticoagulation. Patient also takes a daily dose of oral diuretics in order to avoid fluid overload due to CHF. However after being discharged from [facility] several days ago the patient reports that he was unable to take his antibiotics as prescribed to treat his cellulitis due to apparent esophagitis. He reports not being able to swallow any food or pills because it is just too painful. Several days ago he noticed that the erythema of his left lower extremity had worsened and the limb became more edematous. Patient denied any fever, chills, or any worsening shortness of breath, but given the infection in his left lower extremity shelter staff became concerned and decided to have him transferred to the hospital for evaluation and treatment. 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) History of left below knee amputation (Chronic) History of pneumonia (Resolved) Edema (Chronic) Senile cataracts of both eyes (Chronic) Ida infection (Acute) Of the coughed sputum specimen 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 (Acute) Hypertension (Chronic) Onset Date: Unknown Hyperlipemia (Chronic) Onset Date: Unknown COPD (chronic obstructive pulmonary disease) (Chronic) Onset Date: Unknown CAD (coronary artery disease) (Chronic) Onset Date: Unknown Abdominal aortic aneurysm (AAA) 3.0 cm to 5.5 cm in diameter in male (Chronic) Onset Date: Unknown 4cm diam Type 2 diabetes mellitus (Chronic) Onset Date: Unknown CHF (congestive heart failure) (Chronic) Onset Date: Unknown Atrial fibrillation (Chronic) Onset Date: Unknown Basal cell carcinoma Cataract Chronic sinusitis Difficulty walking Edema Facial weakness Major depression Muscle weakness Slurred speech Supplemental oxygen dependent Wears dentures Wears glasses Acute cholecystitis Diabetes mellitus type 2 Edema Essential hypertension Heart failure Surgical History: Surgical History (Last Reviewed 01/07/20 @ 19:44 by Zenaida Shepherd RN) History of cholecystectomy (Resolved) Onset Date: Unknown Hx of right BKA (Chronic) Onset Date: Unknown History of amputation of toe L foot X5 History of heart bypass surgery X3 History of right lower limb amputation Family History: Family History (Last Reviewed 01/07/20 @ 19:44 by Zenaida Shepherd RN) Father INTESTINAL SURGERY COMPLICATIONS Mother Diabetes Brother Cancer ESOPHAGUS Brother Alive and well Son Son Alive and well Son Alive and well Social History: (Last Reviewed 01/07/20 @ 19:44 by Zenaida Shepherd RN) Social History: shelter: Yes Tobacco: Smoking Status: Former smoker Peds Patient Hx - Developmental: No Pertinent Hx Peds Patient Hx - Medical: No Pertinent Hx Peds Patient Hx - Cardiac/Respiratory: No Pertinent Hx Peds Patient Hx - Surgical: No Surgical History Patient History - Cancer: No Hx of Cancer Review Of Systems (GEN) - Review of Systems Generalized/Overall Review: Present: No Symptoms Reported EENTM: Present: No Symptoms Reported Respiratory: Present: No Symptoms Reported Cardiac: Present: Edema Abdominal: Present: Other - Odynophagia Genitourinary: Present: No Symptoms Reported Musculoskeletal: Present: No Symptoms Reported Neurological: Present: No Symptoms Reported Skin: Present: Change in Color, Other - Erythema of left lower extremity Endocrine: Present: No Symptoms Reported Immunizations: IMMUNIZATION HX Immunizations Up to Date Yes History of Influenza Vaccine Yes Hx Pneumococcal Vaccination Yes Allergies/Adverse Reactions: Allergies Allergy/AdvReac Type Severity Reaction Status Date / Time adhesive tape Allergy Intermediate Other Verified 01/07/20 19:46 heparin AdvReac Verified 11/14/19 13:41 Home Medications: HOME MEDICATIONS Apixaban [Eliquis] 5 mg PO BID 07/08/15 [Last Taken Unknown] Finasteride [Proscar] 5 mg PO DAILY 07/08/15 [Last Taken Unknown] Gabapentin [Neurontin] 300 mg PO BID 07/08/15 [Last Taken Unknown] Multivit-Min/FA/Lycopen/Lutein [Centrum Silver Tablet] 1 ea PO DAILY 07/08/15 [Last Taken Unknown] Omeprazole [Prilosec] 20 mg PO DAILY 07/08/15 [Last Taken Unknown] Tamsulosin HCl [Flomax] 0.4 mg PO DAILY@0700 07/08/15 [Last Taken Unknown] Ferrous Sulfate 325 mg PO TID 11/28/16 [Last Taken Unknown] Aspirin 81 mg PO DAILY 02/02/17 [Last Taken Unknown] Lisinopril [Zestril] 2.5 mg PO DAILY 02/02/17 [Last Taken Unknown] Spironolactone [Aldactone] 12.5 mg PO DAILY 02/02/17 [Last Taken Unknown] acetaminophen 325 mg tablet 650 mg PO Q4H PRN tab 10/30/18 [Last Taken Unknown] escitalopram oxalate 10 mg tablet 10 mg PO DAILY 10/30/18 [Last Taken Unknown] nystatin 100,000 unit/gram topical powder 1 applic TP BID PRN 10/30/18 [Last Taken Unknown] Budesonide/Formoterol Fumarate [Symbicort 160-4.5 Mcg Inhaler] 2 puff INHALATION BID 12/09/18 [Last Taken Unknown] Cetirizine HCl [Zyrtec] 10 mg PO DAILY 12/09/18 [Last Taken Unknown] Cholecalciferol (Vitamin D3) [Vitamin D3] 5,000 unit PO DAILY 12/09/18 [Last Taken Unknown] Hydrophilic Ointment [Aquaphilic Ointment] 1 appl TOPICAL TID PRN 12/09/18 [Last Taken Unknown] Insulin Glargine,Hum.rec.anlog [Lantus] 12 unit SQ DAILY 12/09/18 [Last Taken Unknown] Melatonin 10 mg PO HS 12/09/18 [Last Taken Unknown] Menthol [Biofreeze] 1 appl TOPICAL BID PRN 12/09/18 [Last Taken Unknown] Tiotropium [place] [Spiriva] 18 mcg INHALATION DAILY 12/09/18 [Last Taken Unknown] atorvastatin 40 mg tablet 20 mg PO Q48H tab 03/05/19 [Last Taken 07/21/19 19:00] Carboxymethylcellulose Sodium [Refresh Tears] 1 drp EACHEYE BID PRN 07/22/19 [Last Taken Unknown] Insulin Lispro [Humalog] See Protocol SQ AC 07/22/19 [Last Taken Unknown] Loperamide HCl [Imodium] 2 mg PO PRN PRN 07/22/19 [Last Taken Unknown] Mineral Oil/Petrolatum,White [Eucerin] 1 appl TOPICAL DAILY 07/22/19 [Last Taken Unknown] Albuterol Sulfate [Albuterol Sulfate 2.5 MG/0.5ML] 2.5 mg INHALATION Q4H PRN #120 vial.neb 07/28/19 [Last Taken Unknown] Cefdinir [Omnicef] 300 mg PO BID #16 cap 01/05/20 [Last Taken Unknown] Clindamycin HCl [Cleocin] 300 mg PO Q6H #32 cap 01/05/20 [Last Taken Unknown] Digoxin [Lanoxin] 0.25 mg PO DAILY@0600 #30 tab 01/05/20 [Last Taken Unknown] Mupirocin [Bactroban] 1 appl TOPICAL BID #1 tube 01/05/20 [Last Taken Unknown] Calcium Carbonate [Tums] 1,000 mg PO Q4H PRN 01/07/20 [Last Taken Unknown] Furosemide [Lasix] 20 mg PO DAILY@0700,1100 01/07/20 [Last Taken Unknown] Magnesium Hydroxide [Milk Of Magnesia] 30 ml PO DAILY PRN 01/07/20 [Last Taken Unknown] Nut.tx.gluc Intol,Lf,Soy/Fiber [Glucerna] 240 ml PO TID 01/07/20 [Last Taken Unknown] Polyethylene Glycol 3350 [Gavilax] 17 gm PO DAILY PRN 01/07/20 [Last Taken Unknown] Potassium Chloride 10 meq PO BID 01/07/20 [Last Taken Unknown] guaiFENesin [Robafen] 10 ml PO Q4H PRN 01/07/20 [Last Taken Unknown] Exam - Exam Vital Signs: Vital Signs - Last Taken Temp 36.8 C 01/07/20 18:03 Pulse 80 01/07/20 18:42 Resp 16 01/07/20 18:42 BP 95/46 01/07/20 18:42 Pulse Ox 96 01/07/20 18:42 Constitutional: Present: Alert, Oriented x3, Cooperative, Well developed, Well nourished, No distress, Elderly, Morbidly obese ENT Exam: Present: normal ENT inspection, hearing grossly normal, pharynx normal, TMs normal Eye Exam: bilateral eye: normal inspection, PERRL, EOMI Neck: Present: non-tender, full range of motion, supple, normal inspection, trachea midline Back Exam: Present: normal inspection, no CVA tenderness, no vertebral tenderness Breasts: Present: Exam deferred Respiratory: Present: chest non-tender, no respiratory distress, no accessory muscle use, decreased breath sounds - Decreased breath sounds at bases, No rales, No wheezing Cardiovascular/Chest: Present: no chest tenderness, no gallop, no JVD, no murmur, no rub, irregularly irregular Peripheral Pulses: carotid (R): 3+, carotid (L): 3+ Abdomen: Present: soft, nontender, nondistended, no rebound tenderness, no hepatospenomegaly, no masses, obese /Rectal: Present: Exam deferred Extremity: Present: lower extremity edema, pedal edema, other - Right below the knee amputation, amputation of left forefoot with circumferential erythema extending from dorsum of left foot to infrapatellar region. Skin Exam: Present: warm/dry, other - Erythema of left lower extremity. Scattered petechiae on upper thorax and upper extremities. Lymphatic: Present: no adenopathy Neurologic: Present: calciminer II-XII nml as tested, no motor/sensory deficits, alert, normal mood/affect, oriented x 3 Appearance: Present: appropriate appearance, appropriate insight, neat, no memory impairment Eye contact: Present: cooperative, good eye contact, normal speech Thoughts: Present: normal thought pattern, no apparent hallucination Diagnostic Studies: Abnormal Lab Results 01/07/20 01/07/20 Range/Units 16:27 16:27 RBC 3.89 L (4.7-6.0) M/mm3 Hgb 11.7 L (13.5-18.0) gm/dL Hct 37.8 L (42.0-52.0) % MCHC 31.0 L (32-36) g/dl RDW 17.1 H (11.5-14.0) % Plt Count 148 L (150-450) K/mm3 Immature Gran % (Auto) 6.50 H (0.001-0.429) % Immature Gran # (Auto) 0.36 H (0.000-0.0310) K/mm3 Monocytes % 9.1 H (0.0-9) % Eosinophils % 4.1 H (0.0-3.0) % Lymphocytes # 1.15 L (1.5-3.5) k/mm3 BUN/Creatinine Ratio 8.0 L (9.0-21.6) Total Bilirubin 2.5 H (0.0-1.1) mg/dL ALT 4 L (19-67) U/L C-Reactive Prot, Quant 5.7 H (0.0-0.9) mg/dL B-Natriuretic Peptide 7072 H (5-650) pg/mL Albumin 2.2 L (3.4-5.0) gm/dl Laboratory Results WBC 5.6 K/mm3 (4.0-10.5) 01/07/20 16: RBC 3.89 M/mm3 (4.7-6.0) L 01/07/20 16:27 Hgb 11.7 gm/dL (13.5-18.0) L 01/07/20 16: Hct 37.8 % (42.0-52.0) L 01/07/20 16: MCV 97.2 fl (78-100) 01/07/20 16: MCH 30.1 pg (27-31) 01/07/20 16: MCHC 31.0 g/dl (32-36) L 01/07/20 16: RDW 17.1 % (11.5-14.0) H 01/07/20 16:27 Plt Count 148 K/mm3 (150-450) L 01/07/20 16: MPV 9.4 fl (8-11.3) 01/07/20 16:27 Immature Gran % (Auto) 6.50 % (0.001-0.429) H 01/07/20 16: Immature Gran # (Auto) 0.36 K/mm3 (0.000-0.0310) H 01/07/20 16: Neutrophils % 58.8 % (42-75.0) 01/07/20 16: Lymphocytes % 20.6 % (20-51) 01/07/20 16: Monocytes % 9.1 % (0.0-9) H 01/07/20 16: Eosinophils % 4.1 % (0.0-3.0) H 01/07/20 16: Basophils % 0.9 % (0.0-1.0) 01/07/20 16: Nucleated RBC % 0.0 k/mm3 (0-1) 01/07/20 16:27 Neutrophils # 3.3 K/mm3 (1.3-6.0) 01/07/20 16: Lymphocytes # 1.15 k/mm3 (1.5-3.5) L 01/07/20 16: Monocytes # 0.5 k/mm3 (0.0-1.0) 01/07/20 16: Eosinophils # 0.2 k/mm3 (0.0-0.7) 01/07/20 16: Absolute Basophils 0.1 k/mm3 (0.0-0.1) 01/07/20 16:27 Sodium 139 mmol/L (132-142) 01/07/20 16: Plasma Sodium 139 mmol/L (130-142) 01/07/20 16: Potassium 4.0 mmol/L (3.4-4.6) 01/07/20 16: Chloride 102 mmol/L (97-106) 01/07/20 16: Carbon Dioxide 31.3 mmol/L (24-32.6) 01/07/20 16: Anion Gap 9.7 mmol/L (6.8-13.8) 01/07/20 16: BUN 7 mg/dL (6-23) 01/07/20 16: Creatinine 0.87 mg/dL (0.4-1.4) 01/07/20 16: Est GFR (Non-Af Amer) 90 mL/min (60-130) 01/07/20 16: BUN/Creatinine Ratio 8.0 (9.0-21.6) L 01/07/20 16: Random Glucose 70 mg/dL (70-110) 01/07/20 16: Lactic Acid, Venous 1.4 mmol/L (0.4-2.0) 01/07/20 16: Calcium 8.1 mg/dL (7.9-10.9) 01/07/20 16: Calcium Adj for Albumin 9.2 mg/dL (8.4-10.2) 01/07/20 16: Total Bilirubin 2.5 mg/dL (0.0-1.1) H 04/15/20 16: AST 21 U/L (0-48) 01/07/20 16: ALT 4 U/L (19-67) L 01/07/20 16: Alkaline Phosphatase 73 U/L (50-170) 01/07/20 16:27 C-Reactive Prot, Quant 5.7 mg/dL (0.0-0.9) H 01/07/20 16: B-Natriuretic Peptide 7072 pg/mL (5-650) H 01/07/20 16: Total Protein 6.4 gm/dL (6.2-8.2) 01/07/20 16: Albumin 2.2 gm/dl (3.4-5.0) L 01/07/20 16: Procalcitonin 0.12 ng/mL (0.05-0.50) 01/07/20 16:27 Assessment/Plan - Narrative Narrative: Patient was evaluated and medical chart was reviewed and decision to admit for observation of left lower extremity cellulitis, CHF, hypotension, and acute esophagitis was made. Patient will be treated with dual antibiotic coverage per the susceptibility report of the wound culture taken during his last admission to treat his cellulitis. Labs on admission reveal worsening of his CHF indicated by doubling of his BNP. However patient is known to have low blood pressure and currently he is hypotensive therefore diuresis to treat his CHF andressa l have to be cautious, so for now we will just resume his daily dose of furosemide since today's dose was not administered at the shelter. This is especially important since he had an adverse event in response to diuresis during his last hospitalization indicating poor tolerance of aggressive diuresis. At the moment he is comfortable and denies he dyspnea. He is also saturating adequately on O2 by nasal cannula. He was placed on a ekg monitor tech for careful monitoring given his atrial fibrillation and hypotension. We will also treat him with Sulcrafate for his esophagitis. All of his routine medications were reconciled to be administered during the hospitalization except for his antihypertensives. - Assessment/Plan (1) Left leg cellulitis Problem: Acute (2) Esophagitis Problem: Acute (3) Hypotension Problem: Acute (4) Atrial fibrillation Problem: Chronic (5) Systolic CHF, acute on chronic Problem: Acute
[2020-01-07] MEDS: SUCRALFATE 1 G/10 ML UDC PO SCH (21:38)
[2020-01-07] MEDS: FUROSEMIDE 20 MG TABLET PO SCH (21:39)
[2020-01-07] MEDS: SULFAMETHOXAZOLE/TRIMETHOPRIM 1 TAB TABLET PO SCH (21:40)
[2020-01-07] MEDS: MUPIROCIN 22 APPL TUBE TP SCH (21:40)
[2020-01-07] MEDS: GABAPENTIN 300 MG CAPSULE PO SCH (21:40)
[2020-01-07] MEDS: APIXABAN 5 MG TABLET PO SCH (21:40)
[2020-01-07] MEDS: FLUTICASONE PROPION/SALMETEROL 14 PUFF DISK.W.DEV IH SCH (21:43)
[2020-01-07] MEDS: TIOTROPIUM BROMIDE 5 CAP INHALER IH SCH (21:43)
[2020-01-08] MEDS ORDERED: DIGOXIN 0.125 MG TABLET ONE (05:14)
[2020-01-08] MEDS ORDERED: DIGOXIN 0.25 MG TABLET PO SCH (06:00)
[2020-01-08] MEDS ORDERED: TAMSULOSIN HCL 0.4 MG CAP.SR.24H PO SCH (07:00)
[2020-01-08] MEDS ORDERED: FUROSEMIDE 20 MG TABLET PO SCH (07:00)
[2020-01-08] MEDS ORDERED: PANTOPRAZOLE SODIUM 20 MG TABLET.DR PO SCH (07:00)
[2020-01-08] MEDS: INSULIN LISPRO 100 UNITS/ML VIAL SC SCH ×2 (07:23→12:00)
[2020-01-08] MEDS: FUROSEMIDE 20 MG TABLET PO SCH ×2 (07:42→11:53)
[2020-01-08] MEDS: SUCRALFATE 1 G/10 ML UDC PO SCH ×2 (07:43→11:52)
[2020-01-08] MEDS ORDERED: MULTIVIT-MIN/FA/LYCOPEN/LUTEIN 1 TAB TABLET PO SCH (09:00)
[2020-01-08] MEDS ORDERED: DOCUSATE SODIUM 100 MG CAPSULE PO SCH (09:00)
[2020-01-08] MEDS ORDERED: CHOLECALCIFEROL 5,000 UNIT TABLET PO SCH (09:00)
[2020-01-08] MEDS ORDERED: FIBER PO SCH (09:00)
[2020-01-08] MEDS ORDERED: ESCITALOPRAM OXALATE 10 MG TAB PO SCH (09:00)
[2020-01-08] MEDS ORDERED: [UNRECOGNIZED DRUG - OTHER] PO SCH (09:00)
[2020-01-08] MEDS ORDERED: ASPIRIN 81 MG TAB.CHEW PO SCH (09:00)
[2020-01-08] MEDS ORDERED: INSULIN GLARGINE,HUM.REC.ANLOG 100 UNITS/ML VIAL SC SCH (09:00)
[2020-01-08] MEDS ORDERED: FINASTERIDE 5 MG TABLET PO SCH (09:00)
[2020-01-08] MEDS ORDERED: NUT TX GLUC INTOL LF SOY PO SCH (09:00)
[2020-01-08] MEDS ORDERED: FERROUS SULFATE 325 MG TABLET PO SCH (09:00)
[2020-01-08] MEDS ORDERED: LORATADINE 10 MG TABLET PO SCH (09:00)
[2020-01-08] MEDS: SULFAMETHOXAZOLE/TRIMETHOPRIM 1 TAB TABLET PO SCH (09:03)
[2020-01-08] MEDS: GABAPENTIN 300 MG CAPSULE PO SCH (09:04)
[2020-01-08] MEDS: APIXABAN 5 MG TABLET PO SCH (09:04)
[2020-01-08] MEDS: FLUTICASONE PROPION/SALMETEROL 14 PUFF DISK.W.DEV IH SCH (09:45)
[2020-01-08] MEDS: TIOTROPIUM BROMIDE 5 CAP INHALER IH SCH (09:45)
--- NOTE | 2020-01-08 12:26 | DS ---
Date of Discharge:: 01/08/20 Hospital Course: Paras Parr is an 79-year-old male admitted last evening because of having esophageal pain after swallowing and he was unable to eat drink or take his medication. Also he had more swelling and weepage in his legs but his blood pressure was low. This morning he is alert and conversant and in no distress. The swelling is decreased and the weepage is minimal. He received a gram of Rocephin and 600 mg of clindamycin IV in ER yesterday. His BNP had gone up to 7000 from 3000 when he was here last week. Otherwise his chemistries and blood count are essentially unchanged. 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 The cellulitis that he had last visit had improved at discharge but then worsened again yesterday and his legs were once again reddened and warm to touch. Procedures Performed: none Results and Findings: Lab Pending Results 01/07/20 16:27: WBC 5.6, RBC 3.89 L, Hgb 11.7 L, Hct 37.8 L, MCV 97.2, MCH 30.1, MCHC 31.0 L, RDW 17.1 H, Plt Count 148 L, MPV 9.4, Immature Gran % (Auto) 6.50 H, Immature Gran # (Auto) 0.36 H, Neutrophils % 58.8, Lymphocytes % 20.6, Monocytes % 9.1 H, Eosinophils % 4.1 H, Basophils % 0.9, Nucleated RBC % 0.0, Neutrophils # 3.3, Lymphocytes # 1.15 L, Monocytes # 0.5, Eosinophils # 0.2, Absolute Basophils 0.1 01/07/20 16:27: Sodium 139, Plasma Sodium 139, Potassium 4.0, Chloride 102, Carbon Dioxide 31.3, Anion Gap 9.7, BUN 7, Creatinine 0.87, Est GFR (Non-Af Amer) 90, BUN/Creatinine Ratio 8.0 L, Random Glucose 70, Calcium 8.1, Calcium Adj for Albumin 9.2, Total Bilirubin 2.5 H, AST 21, ALT 4 L, Alkaline Phosphatase 73, C-Reactive Prot, Quant 5.7 H, B-Natriuretic Peptide 7072 H, Total Protein 6.4, Albumin 2.2 L 01/07/20 16:27: Procalcitonin 0.12 01/07/20 16:27: Lactic Acid, Venous 1.4 Discharge Location: [facility] Disposition: SNF Condition: Fair Face to Face Encounter completed per [facility] Guidelines: No Level of Care: SNF Discharge Activity: Activity as tolerated Discharge Diet: Consistent carbs Fdc Therapy: Physical Therapy, Occupation Therapy, Speech Therapy Referrals: Rocael Pina DO [Primary Care Provider] - Prescriptions (Any new or edited meds): Sulfamethoxazole/Trimethoprim [Bactrim Ds] 1 tab PO BID #20 tab Transmission Status: Received by [facility] Sucralfate [Carafate Suspension] 1 g PO ACHS #60 udc Transmission Status: Received by [facility] Complete Home Medications List: Complete Home Medication List: Apixaban [Eliquis] 5 mg PO BID 07/08/15 Finasteride [Proscar] 5 mg PO DAILY 07/08/15 Gabapentin [Neurontin] 300 mg PO BID 07/08/15 Multivit-Min/FA/Lycopen/Lutein [Centrum Silver Tablet] 1 ea PO DAILY 07/08/15 Omeprazole [Prilosec] 20 mg PO DAILY 07/08/15 Tamsulosin HCl [Flomax] 0.4 mg PO DAILY@0700 07/08/15 Ferrous Sulfate 325 mg PO TID 11/28/16 Aspirin 81 mg PO DAILY 02/02/17 Lisinopril [Zestril] 2.5 mg PO DAILY 02/02/17 Spironolactone [Aldactone] 12.5 mg PO DAILY 02/02/17 acetaminophen 325 mg tablet 650 mg PO Q4H PRN tab 10/30/18 escitalopram oxalate 10 mg tablet 10 mg PO DAILY 10/30/18 nystatin 100,000 unit/gram topical powder 1 applic TP BID PRN 10/30/18 Budesonide/Formoterol Fumarate [Symbicort 160-4.5 Mcg Inhaler] 2 puff INHALATION BID 12/09/18 Cetirizine HCl [Zyrtec] 10 mg PO DAILY 12/09/18 Cholecalciferol (Vitamin D3) [Vitamin D3] 5,000 unit PO DAILY 12/09/18 Hydrophilic Ointment [Aquaphilic Ointment] 1 appl TOPICAL TID PRN 12/09/18 Insulin Glargine,Hum.rec.anlog [Lantus] 12 unit SQ DAILY 12/09/18 Melatonin 10 mg PO HS 12/09/18 Menthol [Biofreeze] 1 appl TOPICAL BID PRN 12/09/18 Tiotropium [place] [Spiriva] 18 mcg INHALATION DAILY 12/09/18 atorvastatin 40 mg tablet 20 mg PO Q48H tab 03/05/19 Carboxymethylcellulose Sodium [Refresh Tears] 1 drp EACHEYE BID PRN 07/22/19 Insulin Lispro [Humalog] See Protocol SQ AC 07/22/19 Loperamide HCl [Imodium] 2 mg PO PRN PRN 07/22/19 Mineral Oil/Petrolatum,White [Eucerin] 1 appl TOPICAL DAILY 07/22/19 Albuterol Sulfate [Albuterol Sulfate 2.5 MG/0.5ML] 2.5 mg INHALATION Q4H PRN #120 vial.neb 07/28/19 Cefdinir [Omnicef] 300 mg PO BID #16 cap 01/05/20 Digoxin [Lanoxin] 0.25 mg PO DAILY@0600 #30 tab 01/05/20 Mupirocin [Bactroban] 1 appl TOPICAL BID #1 tube 01/05/20 Calcium Carbonate [Tums] 1,000 mg PO Q4H PRN 01/07/20 Furosemide [Lasix] 20 mg PO DAILY@1100 01/07/20 Magnesium Hydroxide [Milk Of Magnesia] 30 ml PO DAILY PRN 01/07/20 Nut.tx.gluc Intol,Lf,Soy/Fiber [Glucerna] 240 ml PO TID 01/07/20 Polyethylene Glycol 3350 [Gavilax] 17 gm PO DAILY PRN 01/07/20 Potassium Chloride 10 meq PO BID 01/07/20 guaiFENesin [Robafen] 10 ml PO Q4H PRN 01/07/20 Acetaminophen [Tylenol] 500 mg PO Q6H PRN tab 01/08/20 Sucralfate [Carafate Suspension] 1 g PO ACHS #60 udc 01/08/20 Sulfamethoxazole/Trimethoprim [Bactrim Ds] 1 tab PO BID #20 tab 01/08/20
[2020-01-08] MEDS: MUPIROCIN 22 APPL TUBE TP SCH (13:41)
[2020-01-08 14:28] VITALS: BP 130/55
== END 2020-01-08 14:20 ==
LOC: MS 15:57 → ER 15:57 → MS 19:00
PROVIDERS: ADMIT Family Medicine; ATTEND Family Medicine
CPT/HCPCS: 36415; 80053; 83519; 83605; 83880; 84145; 85025; 86140; 87081; 96365; 96366; 96367; 96375; 99285; G0378